=== PATIENT | female | born 1985 | race African-American/Black ===

== ENCOUNTER 2018-01-11 09:10 | Emergency (ER) | payer OTHER, SELFPAY ==
--- NOTE | 2018-01-11 11:49 | EDPHYS ---
Physician Documentation [facility] Name: Evita Tomlin Age: 32 yrs Sex: Female : 1985 Arrival Date: 01/11/2018 Time: 09:11 Bed Treatment Private MD: ED Physician Allan Garcia HPI: 01/11 11:45 This 32 yrs old Black Female presents to ER via Ambulatory with complaints of Drainage pm1 From Ear, Left Ear Pain. 11:45 The patient presents with drainage, pain. The complaints affect the left ear. Onset: pm1 The symptoms/episode began/occurred 1 week(s) ago. Modifying factors: The symptoms are alleviated by nothing, the symptoms are aggravated by nothing. Associated signs and symptoms: Pertinent negatives: fever. Severity of symptoms: in the emergency department the symptoms are worse. The patient has experienced similar episodes in the past, multiple times. The patient has not recently seen a physician. 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 - Social history:: Smoking status: Patient uses tobacco products, smokes one pack cigarettes per day. ROS: 11:45 Constitutional: Negative for fever, chills, and weight loss, Eyes: Negative for injury, pm1 pain, redness, and discharge. 11:45 Neck: Negative for injury, pain, and swelling, Cardiovascular: Negative for chest pain, palpitations, and edema, Respiratory: Negative for shortness of breath, cough, wheezing, and pleuritic chest pain, Abdomen/GI: Negative for abdominal pain, nausea, vomiting, diarrhea, and constipation, Back: Negative for injury and pain, MS/Extremity: Negative for injury and deformity, Skin: Negative for injury, rash, and discoloration, Neuro: Negative for headache, weakness, numbness, tingling, and seizure. 11:45 ENT: Positive for drainage from ear(s), ear pain, Negative for sinus congestion, sinus pain, sore throat. Exam: 11:45 Constitutional: This is a well developed, well nourished patient who is awake, alert, pm1 and in no acute distress. Head/Face: Normocephalic, atraumatic. Eyes: Pupils equal round and reactive to light, extra-ocular motions intact. Lids and lashes normal. Conjunctiva and sclera are non-icteric and not injected. Cornea within normal limits. Periorbital areas with no swelling, redness, or edema. 11:45 Neck: Trachea midline, no thyromegaly or masses palpated, and no cervical lymphadenopathy. Supple, full range of motion without nuchal rigidity, or vertebral point tenderness. No Meningismus. Chest/axilla: Normal chest wall appearance and motion. Nontender with no deformity. No lesions are appreciated. Cardiovascular: Regular rate and rhythm with a normal S1 and S2. No gallops, murmurs, or rubs. Normal PMI, no JVD. No pulse deficits. Respiratory: Lungs have equal breath sounds bilaterally, clear to auscultation and percussion. No rales, rhonchi or wheezes noted. No increased work of breathing, no retractions or nasal flaring. Abdomen/GI: Soft, non-tender, with normal bowel sounds. No distension or tympany. No guarding or rebound. No evidence of tenderness throughout. Back: No spinal tenderness. No costovertebral tenderness. Full range of motion. Skin: Warm, dry with normal turgor. Normal color with no rashes, no lesions, and no evidence of cellulitis. MS/ Extremity: Pulses equal, no cyanosis. Neurovascular intact. Full, normal range of motion. 11:45 ENT: External ear(s): are unremarkable, Ear canal(s): purulent discharge, that is minimal, in the left canal, TM's: bulging, on the left, erythema, on the left, Nose: Mouth: is normal, no acute changes, Posterior pharynx: is normal, no acute changes. Vital Signs: 09:23 BP 166 / 100; Pulse 80; Resp 16; Temp 98.8; Pulse Ox 99% on R/A; Weight 54.43 kg; iw Height 4 ft. 11 in. (149.86 cm); Pain 7/10; 11:35 BP 170 / 106; Pulse 78; Resp 16; Temp 97.4(T); Pulse Ox 99% ; Pain 8/10; tt1 09:23 Body Mass Index 24.24 (54.43 kg, 149.86 cm) MDM: 11:06 Patient medically screened. pm1 11:47 Data reviewed: vital signs. Data interpreted: Pulse oximetry: on room air is 99 %. pm1 Interpretation: normal. Counseling: I had a detailed discussion with the patient and/or guardian regarding: the historical points, exam findings, and any diagnostic results supporting the discharge/admit diagnosis, the need for outpatient follow up, to return to the emergency department if symptoms worsen or persist or if there are any questions or concerns that arise at home. Administered Medications: No medications were administered Disposition: 01/11/18 11:49 Discharged to Home. Impression: Otitis media, unspecified, left ear, Unspecified otitis externa, left ear. - Condition is Stable. - Discharge Instructions: Otitis Media, Adult, Otitis Externa. - Prescriptions for Cortisporin 3.5- 10,000-1 mg/mL-unit/mL-% Otic solution - instill 4 drops by OTIC route 4 times per day for 10 days; 10 milliliter. Amoxicillin 500 mg Oral Capsule - take 1 capsule by ORAL route every 8 hours for 10 days; 30 tablet. Tylenol- Codeine #3 300-30 mg Oral Tablet - take 1 tablet by ORAL route every 6 hours As needed; 15 tablet. - Medication Reconciliation Form, Thank You Letter, Antibiotic Education, Prescription Opioid Use form. - Follow up: Emergency Department; When: As needed; Reason: Worsening of condition. Follow up: Private Physician; When: 2 - 3 days; Reason: Recheck today's complaints, Continuance of care, Re-evaluation by your physician. - Problem is new. - Symptoms have improved. Addendum: 01/13/2018 10:41 Co-signature as Attending Physician, Allan Garcia MD I agree with the assessment and w a plan of care. Signatures: Joanna Palmer RN RN iw Shaggy Simeon, [employer] SALES REPRESENTATIVE pm1 Allan Garcia MD MD il Corrections: (The following items were deleted from the chart) 01/11 11:49 11:49 01/11/2018 11:49 Discharged to Home. Impression: Otitis media, unspecified, left pm1 ear. Condition is Stable. Forms are Medication Reconciliation Form, Thank You Letter, Antibiotic Education, Prescription Opioid Use. Follow up: Emergency Department; When: As needed; Reason: Worsening of condition. Follow up: Private Physician; When: 2 - 3 days; Reason: Recheck today's complaints, Continuance of care, Re-evaluation by your physician. Problem is new. Symptoms have improved. pm1 12:06 11:49 01/11/2018 11:49 Discharged to Home. Impression: Otitis media, unspecified, left iw ear; Unspecified otitis externa, left ear. Condition is Stable. Forms are Medication Reconciliation Form, Thank You Letter, Antibiotic Education, Prescription Opioid Use. Follow up: Emergency Department; When: As needed; Reason: Worsening of condition. Follow up: Private Physician; When: 2 - 3 days; Reason: Recheck today's complaints, Continuance of care, Re-evaluation by your physician. Problem is new. Symptoms have improved. pm1
--- NOTE | 2018-01-11 11:49 | ER ---
Nurse's Notes [facility] Name: Evita Tomlin Age: 32 yrs Sex: Female : 1985 Arrival Date: 01/11/2018 Time: 09:11 Bed Treatment Private MD: Diagnosis: Otitis media, unspecified, left ear;Unspecified otitis externa, left ear Presentation: 01/11 09:19 Presenting complaint: Patient states: "I have hairs growing on my ear for over a year, iw I feel hair growing from neck to left ear and now there is pus and drainage and it's gross", pt licking at left ear, unable to visualize hair in ear. Transition of care: patient was not received from another setting of care. Onset of symptoms was 2016. Initial Sepsis Screen: Does the patient meet any 2 criteria? No. Patient's initial sepsis screen is negative. Does the patient have a suspected source of infection? No. Patient's initial sepsis screen is negative. Care prior to arrival: None. 09:19 Method Of Arrival: Ambulatory iw 09:19 Acuity: KVNG 5 iw Triage Assessment: 11:15 General: Appears in no apparent distress. Behavior is calm. 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 - Social history:: Smoking status: Patient uses tobacco products, smokes one pack cigarettes per day. Screenin:15 Abuse screen: Denies threats or abuse. Denies injuries from another. Nutritional iw screening: No deficits noted. Tuberculosis screening: No symptoms or risk factors identified. Fall Risk None identified. Assessment: 10:14 Reassessment: pt not in lobby. iw 11:15 General: Appears in no apparent distress. Behavior is cooperative, anxious. Pain: iw Complains of pain in left ear. Neuro: Level of Consciousness is awake, alert, obeys commands, Oriented to person, place, time. Cardiovascular: Patient's skin is warm and dry. Respiratory: Respiratory effort is even, unlabored, Respiratory pattern is regular. EENT: Ear canal clear on left ear pt has swelling to left outer ear, appears to have been picking at ear. Derm: Skin is pink, warm \\T\\ dry. normal. Musculoskeletal: Range of motion: intact in all extremities. Vital Signs: 09:23 BP 166 / 100; Pulse 80; Resp 16; Temp 98.8; Pulse Ox 99% on R/A; Weight 54.43 kg; iw Height 4 ft. 11 in. (149.86 cm); Pain 7/10; 11:35 BP 170 / 106; Pulse 78; Resp 16; Temp 97.4(T); Pulse Ox 99% ; Pain 8/10; tt1 09:23 Body Mass Index 24.24 (54.43 kg, 149.86 cm) iw ED Course: 09:11 Patient arrived in ED. as 09:23 Triage completed. iw 09:23 Arm band placed on. iw 11:00 Joanna Palmer RN is Primary Nurse. iw 11:06 Shaggy Simeon NP is PHCP. pm1 11:06 Allan Garcia MD is Attending Physician. pm1 11:15 Patient has correct armband on for positive identification. iw 11:15 No provider procedures requiring assistance completed. Patient did not have IV access iw during this emergency room visit. Administered Medications: No medications were administered Outcome: 11:49 Discharge ordered by . pm1 12:05 Discharged to home ambulatory. iw 12:05 Condition: stable 12:05 Discharge instructions given to patient, Instructed on discharge instructions, follow up and referral plans. medication usage, Demonstrated understanding of instructions, follow-up care, medications, Prescriptions given X 3. 12:06 Patient left the ED. iw Signatures: Echo Nava as Joanna Palmer RN RN iw Zeynep Lal tt1 Shaggy Siemon NP SENIOR SOFTWARE MANAGER pm1
[2018-01-11 12:16] VITALS: O2SAT 99
[2018-01-11 12:17] VITALS: BP 170/106; TEMP 97.4
== END 2018-01-11 12:06 | disposition home or self-care (01) ==
LOC: ER 09:10
DX: H66.92 Otitis media, unspecified, left ear (principal); H60.92 Unspecified otitis externa, left ear
CPT/HCPCS: 99282

== ENCOUNTER 2018-01-28 01:04 | Emergency (ER) | payer SELFPAY ==
--- NOTE | 2018-01-28 01:16 | EDPHYS ---
Physician Documentation [facility] Name: Evita Tomlin Age: 32 yrs Sex: Female : 1985 Arrival Date: 01/28/2018 Time: 01:09 Bed 15 Private MD: ED Physician Didier Owens HPI: 01/28 01:12 This 32 yrs old Black Female presents to ER via EMS with complaints of Ear Pain. cp 01:12 The patient presents with pain. The complaints affect the right ear and left ear. cp Onset: The symptoms/episode began/occurred for awhile. Associated signs and symptoms: Pertinent negatives: cough, shortness of breath, sore throat, vertigo, vomiting. Severity of symptoms: in the emergency department the symptoms are unchanged. 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 - Social history:: Smoking status: Patient uses tobacco products, smokes one pack cigarettes per day. ROS: 01:12 Constitutional: Negative for body aches, chills, fever, poor PO intake. cp 01:12 Eyes: Negative for injury, pain, redness, and discharge. cp 01:12 ENT: Positive for ear pain, Negative for drainage from ear(s), sore throat, difficulty swallowing, difficulty handling secretions. 01:12 Neck: Negative for pain with movement, pain at rest, stiffness, swollen nodes, tenderness. 01:12 Cardiovascular: Negative for chest pain, palpitations. 01:12 Respiratory: Negative for cough, shortness of breath, wheezing. 01:12 Abdomen/GI: Negative for abdominal pain, vomiting, diarrhea, constipation. 01:12 Skin: Negative for cellulitis, rash. 01:12 Neuro: Negative for dizziness, headache, weakness. 01:12 All other systems are negative. Exam: 01:13 Constitutional: The patient appears in no acute distress, alert, awake, non-toxic, well cp developed, well nourished. 01:13 Head/Face: Normocephalic, atraumatic. cp 01:13 Eyes: Periorbital structures: appear normal, Pupils: equal, round, and reactive to light and accomodation, Extraocular movements: intact throughout, Conjunctiva: normal, no exudate, no injection, Lids and lashes: appear normal, bilaterally. 01:13 ENT: External ear(s): are unremarkable, Ear canal(s): are normal, clear, TM's: decreased mobility, bilaterally, erythema, that is moderate, bilaterally, Nose: is normal, Mouth: Lips: moist, Oral mucosa: pink and intact, moist, Posterior pharynx: Airway: no evidence of obstruction, patent, Tonsils: are normal in appearance, Uvula: normal, swelling, is not appreciated, erythema, is not appreciated, exudate, is not appreciated, Voice: is normal. 01:13 Neck: ROM/movement: is normal, is supple, without pain, no range of motions limitations, no meningismus, no nuchal rigidity, Lymph nodes: no appreciated lymphadenopathy. 01:13 Chest/axilla: Inspection: normal, Palpation: is normal, no crepitus, no tenderness. 01:13 Cardiovascular: Rate: normal, Rhythm: regular. 01:13 Respiratory: the patient does not display signs of respiratory distress, Respirations: normal, no use of accessory muscles, no retractions, no splinting, no tachypnea, labored breathing, is not present, Breath sounds: are clear throughout, no decreased breath sounds, no stridor, no wheezing. 01:13 Abdomen/GI: Exam negative for discomfort, distension, guarding, Inspection: abdomen appears normal. 01:13 Skin: cellulitis, is not appreciated, no rash present. Vital Signs: 01:13 BP 150 / 100; Pulse 80; Resp 18; Temp 98.8(O); Pulse Ox 100% on R/A; Weight 56.7 kg; aa1 Height 4 ft. 11 in. (149.86 cm); Pain 10/10; 01:13 Body Mass Index 25.25 (56.70 kg, 149.86 cm) aa1 MDM: 01:15 Patient medically screened. cp 01:15 Differential diagnosis: otitis media, otitis externa, ruptured TM, acute otalgia, cp cerumen impaction. Data reviewed: vital signs, nurses notes, and as a result, I will discharge patient. Administered Medications: 01:20 Drug: Tylenol 1000 mg Route: PO; aa1 01:28 Follow up: Response: Medication administered at discharge. aa1 01:20 Drug: Augmentin 875 mg Route: PO; aa1 01:27 Follow up: Response: Medication administered at discharge. aa1 Disposition: 06:24 Co-signature as Attending Physician, Didier Owens MD. pkl Disposition: 01/28/18 01:15 Discharged to Home. Impression: Otitis media, unspecified, bilateral. - Condition is Stable. - Discharge Instructions: Otitis Media, Adult. - Prescriptions for Amoxicillin 875 mg Oral Tablet - take 1 tablet by ORAL route every 12 hours for 10 days; 20 tablet. - Medication Reconciliation Form, Thank You Letter, Antibiotic Education, Prescription Opioid Use form. - Follow up: Michelle Alejo MD; When: 2 - 3 days; Reason: Recheck today's complaints. - Problem is an ongoing problem. - Symptoms are unchanged. Signatures: Kathleen Velazquez RN RN aa1 Didier Owens MD MD pkl Fabián Cabral PA PA cp Corrections: (The following items were deleted from the chart) 01:29 01:15 01/28/2018 01:15 Discharged to Home. Impression: Otitis media, unspecified, aa1 bilateral. Condition is Stable. Forms are Medication Reconciliation Form, Thank You Letter, Antibiotic Education, Prescription Opioid Use. Follow up: Michelle Alejo; When: 2 - 3 days; Reason: Recheck today's complaints. Problem is an ongoing problem. Symptoms are unchanged. cp
--- NOTE | 2018-01-28 01:16 | ER ---
Nurse's Notes [facility] Name: Evita Tomlin Age: 32 yrs Sex: Female : 1985 Arrival Date: 01/28/2018 Time: 01:09 Bed 15 Private MD: Diagnosis: Otitis media, unspecified, bilateral Presentation: 01/28 01:10 Presenting complaint: Patient states: betty ear pain x 3 months. Reports she was given aa1 amoxicillin for an ear infection but did not finish it so she tried to start it again today but it has not helped. Pt also reports that she is hungry and does not have a place to stay. Transition of care: patient was not received from another setting of care. Onset of symptoms was November 2017. Initial Sepsis Screen: Does the patient meet any 2 criteria? No. Patient's initial sepsis screen is negative. Does the patient have a suspected source of infection? No. Patient's initial sepsis screen is negative. Care prior to arrival: None. 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 - Social history:: Smoking status: Patient uses tobacco products, smokes one pack cigarettes per day. Screenin:15 Abuse screen: Denies threats or abuse. Denies injuries from another. Nutritional aa1 screening: No deficits noted. Tuberculosis screening: No symptoms or risk factors identified. Fall Risk None identified. Assessment: 01:15 General: Appears in no apparent distress. comfortable, Behavior is appropriate for age, aa1 agitated. Pain: Complains of pain in right ear and left ear Pain currently is 10 out of 10 on a pain scale. Pain began 3 months ago. Neuro: Level of Consciousness is awake, alert, obeys commands, Oriented to person, place, time, situation, Moves all extremities. Full function. Respiratory: Airway is patent Respiratory effort is even, unlabored, Respiratory pattern is regular, symmetrical. GI: No signs and/or symptoms were reported involving the gastrointestinal system. : No signs and/or symptoms were reported regarding the genitourinary system. EENT: Reports pain in left ear and right ear. Derm: Skin is intact, is healthy with good turgor, Skin is pink, warm \T\ dry. Musculoskeletal: Circulation, motion, and sensation intact. Capillary refill < 3 seconds, Range of motion: intact in all extremities. 01:28 Reassessment: Patient appears in no apparent distress at this time. Patient is alert, aa1 oriented x 3, equal unlabored respirations, skin warm/dry/pink. Discussed d/c \T\ f/u instructions with pt; denies questions or concerns at this time. Vital Signs: 01:13 BP 150 / 100; Pulse 80; Resp 18; Temp 98.8(O); Pulse Ox 100% on R/A; Weight 56.7 kg; aa1 Height 4 ft. 11 in. (149.86 cm); Pain 10/10; 01:13 Body Mass Index 25.25 (56.70 kg, 149.86 cm) aa1 ED Course: 01:09 Patient arrived in ED. aa1 01:11 Triage completed. aa1 01:12 Fabián Cabral PA is PHCP. cp 01:12 Didier Owens MD is Attending Physician. cp 01:13 Arm band placed on right wrist. Patient placed in an exam room, on a stretcher. aa1 01:15 Michelle Alejo MD is Referral Physician. cp 01:15 Patient has correct armband on for positive identification. Bed in low position. Call aa1 light in reach. Pulse ox on. NIBP on. Warm blanket given. 01:20 Héctor Shaffer, JAILENE is Primary Nurse. mg2 01:28 No provider procedures requiring assistance completed. Patient did not have IV access aa1 during this emergency room visit. Administered Medications: 01:20 Drug: Tylenol 1000 mg Route: PO; aa1 :28 Follow up: Response: Medication administered at discharge. aa1 01:20 Drug: Augmentin 875 mg Route: PO; aa1 01:27 Follow up: Response: Medication administered at discharge. aa1 Outcome: 01:15 Discharge ordered by . cp 01:28 Discharged to home ambulatory. aa1 01:28 Condition: good 01:28 Discharge instructions given to patient, Instructed on discharge instructions, follow up and referral plans. medication usage, Demonstrated understanding of instructions, follow-up care, medications, Prescriptions given X 2. 01:29 Patient left the ED. aa1 Signatures: Kathleen Velazquez RN RN aa1 Fabián Cabral PA PA cp Gardose, Michele, RN RN mg2
[2018-01-28] MEDS ORDERED: AMOX/K CLAV 875 MG TAB ONE (01:21)
[2018-01-28] MEDS ORDERED: ACETAMINOPHEN 500 MG TAB ONE (01:21)
[2018-01-28 01:39] VITALS: BP 150/100; TEMP 98.8; O2SAT 100
== END 2018-01-28 01:29 | disposition home or self-care (01) ==
LOC: ER 01:04
DX: H66.93 Otitis media, unspecified, bilateral (principal); I10 Essential (primary) hypertension; F17.210 Nicotine dependence, cigarettes, uncomplicated
CPT/HCPCS: 99284

== ENCOUNTER 2018-04-08 06:19 | Emergency (ER) | payer SELFPAY ==
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
[2018-04-08] MEDS ORDERED: cloNIDine HCl 0.1 MG TAB ONE (08:50)
[2018-04-08] MEDS ORDERED: AMLODIPINE 5 MG TAB ONE (08:51)
[2018-04-08 09:11] LABS: Urine Blood TRACE (NEG); Urine Glucose NEGATIVE (NEG); Urine Protein 1+ (NEG)
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
[2018-04-08 10:04] VITALS: TEMP 98.2; O2SAT 100
[2018-04-08 10:06] VITALS: BP 162/112
--- NOTE | 2018-04-08 14:02 | EKG ---
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
== END 2018-04-08 09:59 | disposition home or self-care (01) ==
LOC: ER 06:19
DX: I11.9 Hypertensive heart disease without heart failure (principal); M54.2 Cervicalgia; F17.210 Nicotine dependence, cigarettes, uncomplicated
CPT/HCPCS: 70450; 71045; 72125; 81003; 81025; 93005; 99284

== ENCOUNTER 2019-04-20 09:21 | Emergency (ER) | payer SELFPAY ==
--- NOTE | 2019-04-20 09:35 | EDPHYS ---
Physician Documentation [facility] Name: Evita Tomlin Age: 33 yrs Sex: Female : 1985 Arrival Date: 04/20/2019 Time: 09:28 Bed 12 Private MD: ED Physician Fabián Seth HPI: 04/20 09:35 This 33 yrs old Black Female presents to ER via Ambulatory with complaints of Ear Pain. kb 09:35 The patient presents with pain, moderate, "hairs growing out of ear". The complaints kb affect the left ear. Onset: The symptoms/episode began/occurred "over a year ago". Modifying factors: The symptoms are alleviated by nothing, the symptoms are aggravated by nothing. Associated signs and symptoms: The patient has no apparent associated signs or symptoms. Severity of symptoms: At their worst the symptoms were moderate in the emergency department the symptoms are unchanged. The patient has experienced similar episodes in the past. The patient has not recently seen a physician. Pt reports left ear pain with hairs growing out of it for over a year. Pt actively pulling at a hair coming out of ear that is not visible upon examination. Pt states "I'm not crazy, there is a hair there." . 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 - Ebola Screening: : Patient negative for fever greater than or equal to 101.5 degrees Fahrenheit, and additional compatible Ebola Virus Disease symptoms Patient denies exposure to infectious person Patient denies travel to an Ebola-affected area in the 21 days before illness onset No symptoms or risks identified at this time. - Social history:: Smoking status: unknown. ROS: 09:35 Constitutional: Negative for fever, chills, and weight loss, Neck: Negative for injury, kb pain, and swelling, Cardiovascular: Negative for chest pain, palpitations, and edema, Respiratory: Negative for shortness of breath, cough, wheezing, and pleuritic chest pain, Abdomen/GI: Negative for abdominal pain, nausea, vomiting, diarrhea, and constipation, Back: Negative for injury and pain, : Negative for injury, bleeding, discharge, and swelling, MS/Extremity: Negative for injury and deformity, Skin: Negative for injury, rash, and discoloration, Neuro: Negative for headache, weakness, numbness, tingling, and seizure. 09:35 ENT: Positive for ear pain. Exam: 09:35 Constitutional: This is a well developed, well nourished patient who is awake, alert, kb and in no acute distress. Head/Face: Normocephalic, atraumatic. Neck: Trachea midline, no thyromegaly or masses palpated, and no cervical lymphadenopathy. Supple, full range of motion without nuchal rigidity, or vertebral point tenderness. No Meningismus. Chest/axilla: Normal chest wall appearance and motion. Nontender with no deformity. No lesions are appreciated. Cardiovascular: Regular rate and rhythm with a normal S1 and S2. No gallops, murmurs, or rubs. Normal PMI, no JVD. No pulse deficits. Respiratory: Lungs have equal breath sounds bilaterally, clear to auscultation and percussion. No rales, rhonchi or wheezes noted. No increased work of breathing, no retractions or nasal flaring. Abdomen/GI: Soft, non-tender, with normal bowel sounds. No distension or tympany. No guarding or rebound. No evidence of tenderness throughout. Skin: Warm, dry with normal turgor. Normal color with no rashes, no lesions, and no evidence of cellulitis. MS/ Extremity: Pulses equal, no cyanosis. Neurovascular intact. Full, normal range of motion. Neuro: Awake and alert, GCS 15, oriented to person, place, time, and situation. Cranial nerves II-XII grossly intact. Motor strength 5/5 in all extremities. Sensory grossly intact. Cerebellar exam normal. Normal gait. 09:35 ENT: External ear(s): pain with movement, that is moderate, of the pinna of left ear and left ear lobe, Ear canal(s): swelling, that is moderate, of the left canal, TM's: are normal, Nose: is normal, Mouth: is normal, Posterior pharynx: is normal. Vital Signs: 09:36 BP 166 / 89; Pulse 74; Resp 16; Temp 98.7; Pulse Ox 99% ; Pain 9/10; iw MDM: 09:31 Patient medically screened. [facility] 09:38 Data reviewed: vital signs, nurses notes. Data interpreted: Pulse oximetry: on room air kb is 100 %. Interpretation: normal. Counseling: I had a detailed discussion with the patient and/or guardian regarding: the historical points, exam findings, and any diagnostic results supporting the discharge/admit diagnosis, the need for outpatient follow up, an ENT specialist, to return to the emergency department if symptoms worsen or persist or if there are any questions or concerns that arise at home. 09:40 ED course: Pt requesting antibiotic pills rather than drops. Educated that pills will kb not treat an outer ear infection and she needs the drops. States "I can't afford the drops." Prescription changed from ciprodex to cortisporin drops and Good RX card given. Administered Medications: No medications were administered Disposition: 04/20/19 09:35 Discharged to Home. Impression: Unspecified otitis externa, left ear. - Condition is Stable. - Discharge Instructions: Otitis Externa, [id number], Ear Drops, Adult, [id number]. - Prescriptions for Cortisporin 3.5- 10,000-1 mg/mL-unit/mL-% Otic solution - instill 4 drop by OTIC route 3 times per day for 10 days; 1 bottle. - Medication Reconciliation Form, Thank You Letter, Antibiotic Education, Prescription Opioid Use form. - Follow up: Emergency Department; When: As needed; Reason: Worsening of condition. Follow up: Private Physician; When: 2 - 3 days; Reason: Recheck today's complaints, Continuance of care, Re-evaluation by your physician. Addendum: 04/21/2019 10:01 Co-signature as Attending Physician, Fabián Seth MD I agree with the assessment and c patel plan of care. Signatures: Torri Alexis, SENIOR UNDERWRITER-C SENIOR UNDERWRITER-Guilhermeb Fabián Seth MD MD cha Williams, Irene, RN RN iw Corrections: (The following items were deleted from the chart) 04/20 09:38 09:35 ENT: External ear(s): are unremarkable, Ear canal(s): swelling, that is moderate, kb of the left canal, TM's: are normal, Nose: is normal, Mouth: is normal, Posterior pharynx: is normal, kb 09:41 09:40 ED course: Pt requesting antibiotic pills rather than drops. Educated that pills dg will not treat an outer ear infection and she needs the drops. . kb 09:41 09:35 Pt reports left ear pain with hairs growing out of it for over a year. Pt kb actively pulling at a hair coming out of ear that is not visible upon examination. . kb 09:52 09:35 04/20/2019 09:35 Discharged to Home. Impression: Unspecified otitis externa, left iw ear. Condition is Stable. Forms are Medication Reconciliation Form, Thank You Letter, Antibiotic Education, Prescription Opioid Use. Follow up: Emergency Department; When: As needed; Reason: Worsening of condition. Follow up: Private Physician; When: 2 - 3 days; Reason: Recheck today's complaints, Continuance of care, Re-evaluation by your physician. kb
--- NOTE | 2019-04-20 09:35 | ER ---
Nurse's Notes [facility] Name: Evita Tomlin Age: 33 yrs Sex: Female : 1985 Arrival Date: 04/20/2019 Time: 09:28 Bed 12 Private MD: Diagnosis: Unspecified otitis externa, left ear Presentation: 04/20 09:32 Presenting complaint: Patient states: left ear pain for over a year, pt states "I have iw a hair in my ear, I can feel it, I want you to see it, you think I'm crazy, but I'm telling you it's there". Transition of care: patient was not received from another setting of care. Onset of symptoms was April 20, 2018. Risk Assessment: Do you want to hurt yourself or someone else? Patient reports no desire to harm self or others. Initial Sepsis Screen: Does the patient meet any 2 criteria? No. Patient's initial sepsis screen is negative. Does the patient have a suspected source of infection? No. Patient's initial sepsis screen is negative. Care prior to arrival: None. 09:32 Method Of Arrival: Ambulatory iw 09:35 Acuity: KVNG 5 iw Triage Assessment: 09:51 General: Behavior is cooperative. 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 - Ebola Screening: : Patient negative for fever greater than or equal to 101.5 degrees Fahrenheit, and additional compatible Ebola Virus Disease symptoms Patient denies exposure to infectious person Patient denies travel to an Ebola-affected area in the 21 days before illness onset No symptoms or risks identified at this time. - Social history:: Smoking status: unknown. Screenin:51 Abuse screen: Denies threats or abuse. Denies injuries from another. Nutritional iw screening: No deficits noted. Tuberculosis screening: No symptoms or risk factors identified. Fall Risk None identified. Assessment: 09:40 General: Appears in no apparent distress. Pain: Complains of pain in left ear. Neuro: iw Level of Consciousness is awake, alert, obeys commands, Oriented to person, place, time, situation. Cardiovascular: Patient's skin is warm and dry. Respiratory: Respiratory effort is even, unlabored, Respiratory pattern is regular. EENT: Pinna. Derm: Skin is intact, is healthy with good turgor. Musculoskeletal: Range of motion: intact in all extremities. Vital Signs: 09:36 BP 166 / 89; Pulse 74; Resp 16; Temp 98.7; Pulse Ox 99% ; Pain 9/10; iw ED Course: 09:28 Patient arrived in ED. iw 09:31 Fabián eSth MD is Attending Physician. mily 09:34 [facility]ri Alex[facility] F[facility]-C [facility]. kb 09:35 Joanna Palmer, RN is Primary Nurse. iw 09:35 Triage completed. iw 09:35 Arm band placed on. iw 09:51 Patient has correct armband on for positive identification. iw 09:51 No provider procedures requiring assistance completed. Patient did not have IV access iw during this emergency room visit. Administered Medications: No medications were administered Outcome: 09:35 Discharge ordered by . kb 09:51 Discharged to home ambulatory. iw 09:51 Condition: good 09:51 Discharge instructions given to patient, Instructed on discharge instructions, follow up and referral plans. medication usage, Demonstrated understanding of instructions, follow-up care, medications, Prescriptions given X 1. 09:52 Patient left the ED. iw Signatures: Torri Alexis FNP-C FNP-Ckb Fabián Seth MD MD cha Williams, Irene, RN RN iw
[2019-04-20] MEDS ORDERED: IBUPROFEN 400 MG TAB ONE (09:43)
[2019-04-20 10:06] VITALS: BP 166/89; TEMP 98.7; O2SAT 99
== END 2019-04-20 09:52 | disposition home or self-care (01) ==
LOC: ER 09:21
DX: H60.92 Unspecified otitis externa, left ear (principal)
CPT/HCPCS: 99282

== ENCOUNTER 2019-07-07 19:26 | Emergency (ER) | payer SELFPAY ==
--- NOTE | 2019-07-07 20:02 | ER ---
Nurse's Notes [facility] Name: Evita Tomlin Age: 34 yrs Sex: Female : 1985 Arrival Date: 07/07/2019 Time: 19:28 Bed 19 Private MD: Diagnosis: Otitis externa in other diseases classified elsewhere, left ear Presentation: 07/07 19:33 Presenting complaint: Patient states: left ear pain X1 year intermittent. Transition of ak1 care: patient was not received from another setting of care. Onset of symptoms is unknown. Risk Assessment: Do you want to hurt yourself or someone else? Patient reports no desire to harm self or others. Initial Sepsis Screen: Does the patient meet any 2 criteria? No. Patient's initial sepsis screen is negative. Does the patient have a suspected source of infection? No. Patient's initial sepsis screen is negative. Care prior to arrival: None. 19:33 Method Of Arrival: Ambulatory ak1 19:33 Acuity: KVNG 5 ak1 DRAW IN HAND: 19:33 LMP 07/07/2019 ak1 Historical: - Allergies: 19:34 No Known Allergies; ak1 - Home Meds: 19:34 None [Active]; ak1 - PMHx: 19:34 Hypertension; nerve pain; ak1 - PSHx: 19:34 ectopic ; ak1 - Immunization history:: Adult Immunizations unknown. - Social history:: Smoking status: Patient uses tobacco products, smokes one pack cigarettes per day. - Ebola Screening: : Patient negative for fever greater than or equal to 101.5 degrees Fahrenheit, and additional compatible Ebola Virus Disease symptoms Patient denies exposure to infectious person. Screenin:00 Abuse screen: Denies threats or abuse. Denies injuries from another. Nutritional wh screening: No deficits noted. Tuberculosis screening: No symptoms or risk factors identified. Fall Risk None identified. Assessment: 19:40 General: Appears in no apparent distress. Behavior is calm, cooperative, appropriate wh for age. Pain: Complains of pain in left ear Pain does not radiate. Pain currently is 5 out of 10 on a pain scale. Quality of pain is described as aching. Neuro: Level of Consciousness is awake, alert, obeys commands, Oriented to person, place, time, situation, Appropriate for age. Cardiovascular: Capillary refill < 3 seconds. Respiratory: Airway is patent Respiratory effort is even, unlabored, Respiratory pattern is regular, symmetrical. GI: Abdomen is flat, non-distended. : No signs and/or symptoms were reported regarding the genitourinary system. EENT: Reports pain in left ear. Derm: Skin is intact, is healthy with good turgor, Skin is pink, warm \T\ dry. normal. Musculoskeletal: Circulation, motion, and sensation intact. Vital Signs: 19:33 BP 152 / 109; Pulse 105; Resp 18; Temp 98.2; Pulse Ox 100% on R/A; Weight 58.06 kg (R); ak1 Height 4 ft. 11 in. (149.86 cm); Pain 8/10; 19:33 Body Mass Index 25.85 (58.06 kg, 149.86 cm) ak1 ED Course: 19:28 Patient arrived in ED. ds1 19:34 Triage completed. ak1 19:34 Arm band placed on Patient placed in an exam room, on a stretcher, Patient notified of ak1 wait time. 19:35 Fabián Cabral PA is PHCP. cp 19:35 Fabián Seth MD is Attending Physician. cp 20:00 Patient has correct armband on for positive identification. Bed in low position. Call light in reach. Side rails up X 1. Pulse ox on. NIBP on. 20:01 Michelle Alejo MD is Referral Physician. cp 20:03 Joshua Valencia is Primary Nurse. wh 20:24 No provider procedures requiring assistance completed. Patient did not have IV access during this emergency room visit. Administered Medications: 20:18 Drug: Tylenol 650 mg Route: PO; 20:25 Follow up: Response: No adverse reaction wh 20:20 Drug: Ibuprofen 600 mg Route: PO; 20:25 Follow up: Response: No adverse reaction Outcome: 20:02 Discharge ordered by . cp 20:24 Discharged to home ambulatory, with family. 20:24 Condition: stable 20:24 Discharge instructions given to patient, Instructed on discharge instructions, follow up and referral plans. medication usage, POC Otitis Externa Demonstrated understanding of instructions, follow-up care, medications, POC Prescriptions given X 2. 20:25 Patient left the ED. Signatures: Luma Hurtado ds1 Pallavi Casey, RN RN ak1 Fabián Cabral PA PA cp Habalo, Winsy Corrections: (The following items were deleted from the chart) 19:40 Pain: Complains of pain in right ear Pain does not radiate. Pain currently is 5 wh out of 10 on a pain scale. Quality of pain is described as aching, 19:40 EENT: Reports pain in right ear [facility]
--- NOTE | 2019-07-07 20:02 | EDPHYS ---
Physician Documentation [facility] Name: Evita Tomlin Age: 34 yrs Sex: Female : 1985 Arrival Date: 07/07/2019 Time: 19:28 Bed 19 Private MD: ED Physician Fabián Seth HPI: 07/07 20:00 This 34 yrs old Black Female presents to ER via Ambulatory with complaints of Ear Pain. cp 20:00 The patient presents with pain, tenderness. The complaints affect the left ear. Onset: cp The symptoms/episode began/occurred for awhile. Associated signs and symptoms: Pertinent negatives: cough, fever, rhinorrhea, sinus trouble, sore throat, drainage. Severity of symptoms: in the emergency department the symptoms are unchanged despite home interventions. 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 - Social history:: Smoking status: Patient uses tobacco products, smokes one pack cigarettes per day. - Ebola Screening: : Patient negative for fever greater than or equal to 101.5 degrees Fahrenheit, and additional compatible Ebola Virus Disease symptoms Patient denies exposure to infectious person. ROS: 20:00 Constitutional: Negative for body aches, chills, fever, poor PO intake. cp 20:00 Eyes: Negative for injury, pain, redness, and discharge. cp 20:00 ENT: Positive for ear pain, Negative for drainage from ear(s), sinus congestion, sinus pain, difficulty swallowing, difficulty handling secretions. 20:00 Respiratory: Negative for cough, shortness of breath, wheezing. 20:00 Abdomen/GI: Negative for abdominal pain, nausea, vomiting, and diarrhea. 20:00 Skin: Negative for rash. 20:00 Neuro: Negative for headache. 20:00 All other systems are negative. Exam: 20:01 Constitutional: The patient appears in no acute distress, alert, awake, comfortable, cp non-toxic, well developed, well nourished. 20:01 Head/Face: Normocephalic, atraumatic. cp 20:01 Eyes: Periorbital structures: appear normal, Conjunctiva: normal, no exudate, no injection, Lids and lashes: appear normal, bilaterally. 20:01 ENT: External ear(s): pain with movement, that is mild, of the pinna of left ear and left ear canal, Ear canal(s): erythema, is not appreciated, swelling, that is minimal, of the left canal, TM's: dullness, bilaterally, Nose: is normal, Mouth: Lips: moist, Oral mucosa: pink and intact, moist, Posterior pharynx: is normal, airway is patent, no erythema, no exudate. 20:01 Neck: ROM/movement: is normal, is supple, without pain, no range of motions limitations, no nuchal rigidity, Lymph nodes: no appreciated lymphadenopathy. 20:01 Chest/axilla: Inspection: normal. 20:01 Cardiovascular: Rate: tachycardic. 20:01 Respiratory: the patient does not display signs of respiratory distress, Respirations: normal, no use of accessory muscles, no retractions, no splinting, no tachypnea. 20:01 Abdomen/GI: Exam negative for discomfort, distension, guarding, Inspection: abdomen appears normal. 20:01 Skin: no rash present. Vital Signs: 19:33 BP 152 / 109; Pulse 105; Resp 18; Temp 98.2; Pulse Ox 100% on R/A; Weight 58.06 kg (R); ak1 Height 4 ft. 11 in. (149.86 cm); Pain 8/10; 19:33 Body Mass Index 25.85 (58.06 kg, 149.86 cm) ak1 MDM: 19:37 Patient medically screened. cp 20:00 Differential diagnosis: otitis media, otitis externa, ruptured TM, acute otalgia, cp cerumen impaction, barotrauma . 20:01 Data reviewed: vital signs, nurses notes, and as a result, I will discharge patient. cp 20:01 Counseling: I had a detailed discussion with the patient and/or guardian regarding: the cp historical points, exam findings, and any diagnostic results supporting the discharge/admit diagnosis, to return to the emergency department if symptoms worsen or persist or if there are any questions or concerns that arise at home. 20:01 Response to treatment: the patient's symptoms have mildly improved after treatment, and cp as a result, I will discharge patient. Administered Medications: 20:18 Drug: Tylenol 650 mg Route: PO; 20:25 Follow up: Response: No adverse reaction 20:20 Drug: Ibuprofen 600 mg Route: PO; 20:25 Follow up: Response: No adverse reaction Disposition: 07/08 07:24 Co-signature as Attending Physician, Fabián Seth MD I agree with the assessment and mily plan of care. Disposition: 07/07/19 20:02 Discharged to Home. Impression: Otitis externa in other diseases classified elsewhere, left ear. - Condition is Stable. - Discharge Instructions: Otitis Externa. - Prescriptions for Cortisporin- TC 3.3-3-10-0.5 mg/mL Otic Suspension - instill 4 drop by OTIC route every 6 hours; 1 bottle. Ibuprofen 600 mg Oral Tablet - take 1 tablet by ORAL route every 6 hours As needed take with food; 30 tablet. - Medication Reconciliation Form, Thank You Letter, Antibiotic Education, Prescription Opioid Use form. - Follow up: Michelle Alejo MD; When: 1 week; Reason: symptoms continue. - Problem is new. - Symptoms have improved. Signatures: Fabián Seth MD MD cha Krenek, Amber, RN RN ak1 Fabián Cabral PA PA Joshua Valencia Corrections: (The following items were deleted from the chart) 07/07 20:25 20:02 07/07/2019 20:02 Discharged to Home. Impression: Otitis externa in other diseases wh classified elsewhere, left ear. Condition is Stable. Forms are Medication Reconciliation Form, Thank You Letter, Antibiotic Education, Prescription Opioid Use. Follow up: Michelle Alejo; When: 1 week; Reason: symptoms continue. Problem is new. Symptoms have improved. cp
[2019-07-07] MEDS ORDERED: IBUPROFEN 400 MG TAB ONE (20:15)
[2019-07-07] MEDS ORDERED: ACETAMINOPHEN 325 MG TABLET ONE (20:15)
[2019-07-07] MEDS ORDERED: IBUPROFEN 200 MG TAB PO ONE (20:15)
[2019-07-07 21:03] VITALS: BP 152/109; TEMP 98.2; O2SAT 100
== END 2019-07-07 20:25 | disposition home or self-care (01) ==
LOC: ER 19:26
DX: H60.8X2 Other otitis externa, left ear (principal); F17.210 Nicotine dependence, cigarettes, uncomplicated
CPT/HCPCS: 99283

== ENCOUNTER 2020-01-03 00:28 | Emergency (ER) | payer SELFPAY ==
[2020-01-03] MEDS ORDERED: cloNIDine HCL 0.1 MG TAB ONE (00:47)
--- NOTE | 2020-01-03 01:15 | ER ---
Nurse's Notes [facility] Name: Evita Tomlin Age: 34 yrs Sex: Female : 1985 Arrival Date: 01/03/2020 Time: 00:30 Bed 8 Private MD: Diagnosis: Allergic rhinitis, unspecified;Essential (primary) hypertension Presentation: 01/02 00:34 Chief complaint: Patient states: I dont feel good. I have a cough and have been sg sneezing with a runny nose, and my uncle wont let me stay with him until i get tested for COVID and am negative. pt denies N/V/D/Fever at this time. Coronavirus screen: Patient reports a cough. Patient denies shortness of breath or difficulty breathing. Patient denies measured and/or subjective temperature greater than 100.4F prior to today's visit. Patient denies travel on a cruise ship or to a country the [facility] currently lists as an affected area. Patient denies contact with known and/or suspected case of COVID-19. Ebola Screen: Patient negative for fever greater than or equal to 101.5 degrees Fahrenheit, and additional compatible Ebola Virus Disease symptoms Patient denies exposure to infectious person. Patient denies travel to an Ebola-affected area in the 21 days before illness onset. No symptoms or risks identified at this time. Onset: The symptoms/episode began/occurred gradually, yesterday. Initial Sepsis Screen: Does the patient meet any 2 criteria? No. Patient's initial sepsis screen is negative. Does the patient have a suspected source of infection? No. Patient's initial sepsis screen is negative. Risk Assessment: Do you want to hurt yourself or someone else? Patient reports no desire to harm self or others. Onset of symptoms was January 03, 2020. Care prior to arrival: None. 00:34 Method Of Arrival: Ambulatory sg 00:34 Acuity: KVNG 4 sg Historical: - Allergies: 00:39 No Known Allergies; sg - PMHx: 00:39 Hypertension; nerve pain; sg - PSHx: 00:39 ectopic ; sg - Immunization history:: Adult Immunizations up to date. - Social history:: Smoking status: Patient denies any tobacco usage or history of. Screenin:45 Abuse screen: Denies threats or abuse. Denies injuries from another. Nutritional rv screening: No deficits noted. Tuberculosis screening: No symptoms or risk factors identified. 00:45 Fall Risk None identified. rv Assessment: 00:45 General: Appears uncomfortable, Behavior is calm, cooperative. rv 00:45 Pain: Denies pain. Neuro: Level of Consciousness is awake, alert, obeys commands, rv Oriented to person, place, time, situation. Cardiovascular: Patient's skin is warm and dry. Respiratory: Airway is patent Respiratory effort is even, unlabored, Breath sounds are clear bilaterally. Derm: Skin is intact. Vital Signs: 00:39 BP 157 / 116; Pulse 89; Resp 18; Temp 97.0(TE); Pulse Ox 100% on R/A; oe 01:10 BP 151 / 104; Pulse 86; Pulse Ox 100% on R/A; vc ED Course: 00:30 Patient arrived in ED. ag3 00:32 Torri Alexis FNP-C [facility]. kb 00:32 Kye Morales MD is Attending Physician. kb 00:33 Cruz Mehta, JAILENE is Primary Nurse. rv 00:39 Triage completed. sg 00:39 Arm band placed on. sg 00:45 Bed in low position. Call light in reach. Pulse ox on. NIBP on. rv 01:19 No provider procedures requiring assistance completed. Patient did not have IV access rv during this emergency room visit. Administered Medications: 00:43 Drug: cloNIDine 0.1 mg Route: PO; rv 01:18 Follow up: Response: No adverse reaction; Blood pressure is lowered rv Outcome: 01:15 Discharge ordered by . kb 01:19 Discharged to home ambulatory. rv 01:19 Condition: good 01:19 Discharge instructions given to patient, Instructed on discharge instructions, follow up and referral plans. Demonstrated understanding of instructions, follow-up care. 01:20 Patient left the ED. rv Signatures: Torri Alexis FNP-C FNP-Yariel Das RN RN sg Jagdeep Heredia oe Cruz Mehta, JAILENE RN rv Skylar Gant ag3 Doris Mata RN RN vc Corrections: (The following items were deleted from the chart) 00:46 00:34 Chief complaint: Patient states: I dont feel good. I have a cough and have been sg sneezing with a runny nose, pt denies N/V/D/Fever at this time sg
--- NOTE | 2020-01-03 01:15 | EDPHYS ---
Physician Documentation [facility] Name: Evita Tomlin Age: 34 yrs Sex: Female : 1985 Arrival Date: 01/03/2020 Time: 00:30 Bed 8 Private MD: ED Physician Kye Morales HPI: 01/02 00:47 This 34 yrs old Black Female presents to ER via Ambulatory with complaints of Cough, kb Sneezing. 00:47 The patient or guardian reports cough, that is intermittent, described as mild, with no kb sputum. Onset: The symptoms/episode began/occurred 2 day(s) ago. Severity of symptoms: At their worst the symptoms were very mild, mild, in the emergency department the symptoms are unchanged. Modifying factors: The symptoms are alleviated by nothing, the symptoms are aggravated by nothing. Associated signs and symptoms: Pertinent positives: rhinorrhea, sore throat, Pertinent negatives: chest pain, diarrhea, ear ache, fever, nausea, vomiting. The patient has not experienced similar symptoms in the past. The patient has not recently seen a physician. Pt reports sneezing, coughing and scratchy throat for 2 days. States her uncle won't let her stay with him because he's worried about COVID so she came to make sure that wasn't what it was. Denies fever/chills. Historical: - Allergies: 00:39 No Known Allergies; sg - PMHx: 00:39 Hypertension; nerve pain; sg - PSHx: 00:39 ectopic ; sg - Immunization history:: Adult Immunizations up to date. - Social history:: Smoking status: Patient denies any tobacco usage or history of. ROS: 00:46 Constitutional: Negative for fever, chills, and weight loss, Neck: Negative for injury, kb pain, and swelling, Cardiovascular: Negative for chest pain, palpitations, and edema, Abdomen/GI: Negative for abdominal pain, nausea, vomiting, diarrhea, and constipation, Back: Negative for injury and pain, MS/Extremity: Negative for injury and deformity, Skin: Negative for injury, rash, and discoloration, Neuro: Negative for headache, weakness, numbness, tingling, and seizure. 00:46 ENT: Positive for sneezing, scratchy throat. 00:46 Respiratory: Positive for cough, Negative for dyspnea on exertion, hemoptysis, orthopnea, pleurisy, shortness of breath, sputum production, wheezing. Exam: 00:46 Constitutional: This is a well developed, well nourished patient who is awake, alert, kb and in no acute distress. Head/Face: Normocephalic, atraumatic. Eyes: Pupils equal round and reactive to light, extra-ocular motions intact. Lids and lashes normal. Conjunctiva and sclera are non-icteric and not injected. Cornea within normal limits. Periorbital areas with no swelling, redness, or edema. ENT: Nares patent. No nasal discharge, no septal abnormalities noted. Tympanic membranes are normal and external auditory canals are clear. Oropharynx with no redness, swelling, or masses, exudates, or evidence of obstruction, uvula midline. Mucous membranes moist. Neck: Trachea midline, no thyromegaly or masses palpated, and no cervical lymphadenopathy. Supple, full range of motion without nuchal rigidity, or vertebral point tenderness. No Meningismus. Chest/axilla: Normal chest wall appearance and motion. Nontender with no deformity. No lesions are appreciated. Cardiovascular: Regular rate and rhythm with a normal S1 and S2. No gallops, murmurs, or rubs. Normal PMI, no JVD. No pulse deficits. Respiratory: Lungs have equal breath sounds bilaterally, clear to auscultation and percussion. No rales, rhonchi or wheezes noted. No increased work of breathing, no retractions or nasal flaring. Abdomen/GI: Soft, non-tender, with normal bowel sounds. No distension or tympany. No guarding or rebound. No evidence of tenderness throughout. Skin: Warm, dry with normal turgor. Normal color with no rashes, no lesions, and no evidence of cellulitis. MS/ Extremity: Pulses equal, no cyanosis. Neurovascular intact. Full, normal range of motion. Neuro: Awake and alert, GCS 15, oriented to person, place, time, and situation. Cranial nerves II-XII grossly intact. Motor strength 5/5 in all extremities. Sensory grossly intact. Cerebellar exam normal. Normal gait. Vital Signs: 00:39 BP 157 / 116; Pulse 89; Resp 18; Temp 97.0(TE); Pulse Ox 100% on R/A; oe 01:10 BP 151 / 104; Pulse 86; Pulse Ox 100% on R/A; vc MDM: 00:32 Patient medically screened. kb 00:45 Data reviewed: vital signs, nurses notes. Data interpreted: Pulse oximetry: on room air kb is 100 %. Interpretation: normal. Counseling: I had a detailed discussion with the patient and/or guardian regarding: the historical points, exam findings, and any diagnostic results supporting the discharge/admit diagnosis, the need for outpatient follow up, a family practitioner, to return to the emergency department if symptoms worsen or persist or if there are any questions or concerns that arise at home. ED course: Pt is asymptomatic of BP. States she is supposed to take Diovan for it, but doesn't have any. Educated to follow up with PCP for BP management.. Administered Medications: 00:43 Drug: cloNIDine 0.1 mg Route: PO; rv 01:18 Follow up: Response: No adverse reaction; Blood pressure is lowered rv Disposition: 06:34 Co-signature as Attending Physician, Kye Morales MD I agree with the assessment and kdr plan of care. Disposition: 01/03/20 01:15 Discharged to Home. Impression: Allergic rhinitis, unspecified, Essential (primary) hypertension. - Condition is Stable. - Discharge Instructions: Hypertension, [id number], Allergies, [id number]. - Medication Reconciliation Form, Thank You Letter, Antibiotic Education, Prescription Opioid Use form. - Follow up: Emergency Department; When: As needed; Reason: Worsening of condition. Follow up: Private Physician; When: 2 - 3 days; Reason: Recheck today's complaints, Continuance of care, Re-evaluation by your physician. - Notes: [facility] hotline Signatures: Torri Alexis, [employer] SERVICES LIBRARIAN-Ckb Yariel Younger RN RN sg Kye Morales MD MD [facility] Cruz Mehta RN RN rv Corrections: (The following items were deleted from the chart) 01:15 01/03/2020 01:15 Discharged to Home. Impression: Allergic rhinitis, unspecified; rv Essential (primary) hypertension. Condition is Stable. Discharge Instructions: Hypertension, [id number], Allergies, [id number]. Forms are Medication Reconciliation Form, Thank You Letter, Antibiotic Education, Prescription Opioid Use. Follow up: Emergency Department; When: As needed; Reason: Worsening of condition. Follow up: Private Physician; When: 2 - 3 days; Reason: Recheck today's complaints, Continuance of care, Re-evaluation by your physician. kb
[2020-01-03 01:25] VITALS: TEMP 97; O2SAT 100
[2020-01-03 01:27] VITALS: BP 151/104
== END 2020-01-03 01:20 | disposition home or self-care (01) ==
LOC: ER 00:28
DX: J30.9 Allergic rhinitis, unspecified (principal); I10 Essential (primary) hypertension
CPT/HCPCS: 99283

== ENCOUNTER 2020-04-13 08:11 | Emergency (ER) | payer SELFPAY, OTHER ==
[2020-04-13] MEDS ORDERED: NA CHLORIDE 0.9% 1,000 ML ONE (08:47)
[2020-04-13] MEDS ORDERED: dexAMETHasone 10 MG/ML VIAL ONE (08:47)
--- NOTE | 2020-04-13 09:27 | RAD REPORT ---
EXAM DESCRIPTION: RAD - Chest Single View - 04/13/2020 9:02 am CLINICAL HISTORY: Malaise;Pain Chest pain. COMPARISON: Chest Single View dated 04/08/2018 FINDINGS: Portable technique limits examination quality. The lungs are grossly clear. The heart is normal in size. No displaced fractures. IMPRESSION: No acute intrathoracic process suspected.
[2020-04-13 09:40] LABS: Protime INR 1.01
[2020-04-13 09:52] LABS: Absolute Lymphocytes (CBC) 0.7 K/uL (0.7-4.9); Basophils % 0.4 % (0-1.3); Hematocrit 30.5 % (36.0-45.0); Lymphocytes % 9.7 % (15.3-44.8); RBC Red Blood Cell Count 3.78 M/uL (3.86-4.86)
[2020-04-13 10:04] LABS: ALT/SGPT 69 U/L (12-78); AST/SGOT 41 U/L (15-37); Albumin 2.7 g/dL (3.4-5.0); Alkaline Phosphatase 86 U/L (45-117); BUN Blood Urea Nitrogen 6 mg/dL (7-18); Bicarbonate 26 mmol/L (21-32); Bilirubin Direct 0.1 mg/dL (0-0.2); Bilirubin Total 0.2 mg/dL (0.2-1.0); Ferritin 10.7 ng/mL (8-388); Glucose Level 122 mg/dL (74-106); NT PRO-BNP 113 pg/mL (<125); Potassium 3.4 mmol/L (3.5-5.1); Protein, Total 7.1 g/dL (6.4-8.2); Sodium Level 139 mmol/L (136-145); Thyroid Stimulating Hormone 0.371 uIU/mL (0.360-3.740); Transferrin 230 mg/dL (200-360); Troponin (Emerg Dept Use Only) < 0.02 ng/mL (0.0-0.045)
[2020-04-13 10:23] LABS: Urine Blood NEGATIVE (NEG); Urine Glucose NEGATIVE (NEG); Urine Protein NEGATIVE (NEG); Urine Specific Gravity 1.025 (1.005-1.030)
[2020-04-13 10:24] LABS: Urine Specific Gravity 1.025 (1.005-1.030)
--- NOTE | 2020-04-13 10:59 | RAD REPORT ---
EXAM DESCRIPTION: CT - Chest For Pe Angio - 04/13/2020 10:42 am CLINICAL HISTORY: Chest pain. CHEST PAIN COMPARISON: Chest Single View dated 04/13/2020 TECHNIQUE: CT angiogram of the pulmonary arteries was performed with MIP. All CT scans are performed using dose optimization technique as appropriate and may include automated exposure control or mA/KV adjustment according to patient size. FINDINGS: No evidence of pulmonary thromboembolism. No acute aortic finding demonstrated. The lungs are clear. No significant pericardial or pleural fluid. No concerning bony finding. IMPRESSION: No evidence of pulmonary thromboembolism. No acute lung findings.
--- NOTE | 2020-04-13 11:05 | EDPHYS ---
Physician Documentation [facility] Name: Evita Tomiln Age: 34 yrs Sex: Female : 1985 Arrival Date: 04/13/2020 Time: 08:14 Bed 18 Private MD: ED Physician Fabián Seth HPI: 04/13 08:56 This 34 yrs old Black Female presents to ER via EMS with complaints of pain all over, snw swelling to wrists and ankles, fatigue. 08:56 Pt states she has been swelling in all joints with increased discomfort and fatigue x 3 snw days. Onset: The symptoms/episode began/occurred gradually. Severity of symptoms: At their worst the symptoms were moderate in the emergency department the symptoms are unchanged. It is unknown whether or not the patient has had similar symptoms in the past. The patient has not recently seen a physician, and does not have an established primary care provider. 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 - Social history:: Smoking status: Patient reports the use of cigarette tobacco products, smokes one pack cigarettes per day. ROS: 08:56 Eyes: Negative for injury, pain, redness, and discharge, ENT: Negative for injury, snw pain, and discharge, Neck: Negative for injury, pain, and swelling. 08:56 Cardiovascular: Negative for chest pain, palpitations, and edema, Abdomen/GI: Negative for abdominal pain, nausea, vomiting, diarrhea, and constipation, Back: Negative for injury and pain, : Negative for injury, bleeding, discharge, and swelling, MS/Extremity: Negative for injury and deformity, + tenderness and thickening of wrists and ankles, no dependent edema Skin: Negative for injury, rash, and discoloration, + pallor Neuro: Negative for headache, weakness, numbness, tingling, and seizure, Psych: Negative for depression, anxiety, suicide ideation, homicidal ideation, and hallucinations. 08:56 Constitutional: Positive for body aches, fatigue, malaise. 08:56 Cardiovascular: Positive for chest pain, of the to midchest with inspiration. 08:56 Cardiovascular: Positive for 08:56 Respiratory: Positive for pleurisy, Negative for cough. Exam: 08:59 Head/Face: Normocephalic, atraumatic. snw 08:59 ENT: Nares patent. No nasal discharge, no septal abnormalities noted. Tympanic membranes are normal and external auditory canals are clear. Oropharynx with no redness, swelling, or masses, exudates, or evidence of obstruction, uvula midline. Mucous membranes moist. Neck: Trachea midline, no thyromegaly or masses palpated, and no cervical lymphadenopathy. Supple, full range of motion without nuchal rigidity, or vertebral point tenderness. No Meningismus. Chest/axilla: Normal chest wall appearance and motion. Nontender with no deformity. No lesions are appreciated. 08:59 Abdomen/GI: Soft, non-tender, with normal bowel sounds. No distension or tympany. No guarding or rebound. No evidence of tenderness throughout. Back: No spinal tenderness. No costovertebral tenderness. Full range of motion. 08:59 Neuro: Awake and alert, GCS 15, oriented to person, place, time, and situation. Cranial nerves II-XII grossly intact. Motor strength 5/5 in all extremities. Sensory grossly intact. Cerebellar exam normal. Normal gait. Psych: Awake, alert, with orientation to person, place and time. Behavior, mood, and affect are within normal limits. 08:59 Constitutional: The patient appears alert, awake, anxious, pale. 08:59 Eyes: Conjunctiva: pale, bilaterally. 08:59 Cardiovascular: Rate: normal, Rhythm: regular, Pulses: no pulse deficits are appreciated, Heart sounds: murmur, systolic, heard in the aortic area, heard in the mitral area. 08:59 Respiratory: the patient does not display signs of respiratory distress, Respirations: normal, Breath sounds: are clear throughout, + pleurisy. 08:59 Skin: Appearance: Color: pale, Temperature: normal temperature, Moisture: dry, areas of thickened, darkened skin in multiple areas. Vital Signs: 08:14 BP 141 / 101; Pulse 95; Resp 18 S; Temp 98.5(O); Pulse Ox 99% on R/A; Weight 56.7 kg aa5 (R); Height 4 ft. 11 in. (149.86 cm) (R); Pain 10/10; 08:15 BP 141 / 101; Pulse 97; Resp 17; Pulse Ox 100% on R/A; tw2 09:30 BP 133 / 92; Pulse 94; Resp 17; Pulse Ox 100% on R/A; tw2 10:30 BP 150 / 99; Pulse 96; Resp 18; Pulse Ox 99% on R/A; tw2 11:25 BP 144 / 100; Pulse 85; Resp 19; Pulse Ox 99% on R/A; tw2 08:14 Body Mass Index 25.25 (56.70 kg, 149.86 cm) aa5 MDM: 08:14 Patient medically screened. mily 11:07 Data reviewed: vital signs, nurses notes. Data interpreted: Pulse oximetry: on room air snw is 100 %. Interpretation: normal. Counseling: I had a detailed discussion with the patient and/or guardian regarding: the historical points, exam findings, and any diagnostic results supporting the discharge/admit diagnosis, the presence of at least one elevated blood pressure reading (>120/80) during this emergency department visit, lab results, radiology results, the need for outpatient follow up, to return to the emergency department if symptoms worsen or persist or if there are any questions or concerns that arise at home. Special discussion: I have referred the patient to see his PCP for further evaluation of high blood pressure. Based on the history and exam findings, there is no indication for further emergent testing or inpatient evaluation. I discussed with the patient/guardian the need to see the OB Gyne specialist for further evaluation of the symptoms. I discussed with the patient/guardian the need to see the primary care provider for further evaluation of the symptoms. 04/13 08:32 Order name: Basic Metabolic Panel; Complete Time: 10:06 snw 04/13 08:32 Order name: CBC with Diff; Complete Time: 10:02 snw 04/13 08:32 Order name: LFT's; Complete Time: 10:06 snw 04/13 08:32 Order name: Magnesium; Complete Time: 10:06 snw 04/13 08:32 Order name: NT PRO-BNP; Complete Time: 10:06 snw 04/13 08:32 Order name: PT-INR; Complete Time: 10:02 snw 04/13 08:32 Order name: Troponin (emerg Dept Use Only); Complete Time: 10:06 snw 04/13 08:32 Order name: Flu; Complete Time: 10:23 snw 04/13 08:32 Order name: Strep; Complete Time: 10:23 snw 04/13 08:32 Order name: COVID-19 snw 04/13 08:32 Order name: TS; Complete Time: 10:34 snw 04/13 08:32 Order name: TSH; Complete Time: 10:06 snw 04/13 08:32 Order name: DD; Complete Time: 10:02 snw 04/13 08:32 Order name: Ferritin; Complete Time: 10:06 snw 04/13 08:32 Order name: XRAY Chest (1 view); Complete Time: 09:29 snw 04/13 08:32 Order name: EKG; Complete Time: 08:33 snw 04/13 08:32 Order name: Cardiac monitoring; Complete Time: 09:43 snw 04/13 08:32 Order name: EKG - Nurse/Tech; Complete Time: 09:43 snw 04/13 08:32 Order name: Retic Count; Complete Time: 10:02 snw 04/13 08:32 Order name: TRANSFERRIN SAT/IRON BINDING; Complete Time: 10:06 snw 04/13 08:32 Order name: Urine Culture snw 04/13 08:32 Order name: Urine For Protein, Random; Complete Time: 11:03 snw 04/13 09:35 Order name: Diet Regular; Complete Time: 09:36 bd 04/13 09:44 Order name: Urine Dipstick--Ancillary (enter results); Complete Time: 10:25 bd 04/13 09:45 Order name: Urine --Ancillary (enter results); Complete Time: 10:25 bd 04/13 10:09 Order name: CT Chest For PE Angio; Complete Time: 11:03 snw 04/13 10:23 Order name: Throat Culture EDMS 04/13 08:32 Order name: IV Saline Lock; Complete Time: 09:43 snw 04/13 08:32 Order name: Labs collected and sent; Complete Time: 09:43 snw 04/13 08:32 Order name: O2 Per Protocol; Complete Time: 09:43 snw 04/13 08:32 Order name: O2 Sat Monitoring; Complete Time: 09:43 snw 04/13 08:32 Order name: Urine Dipstick-Ancillary (obtain specimen); Complete Time: 09:46 snw 04/13 08:32 Order name: Droplet/Contact Precautions; Complete Time: 09:46 snw Administered Medications: 09:12 Drug: NS 0.9% 1000 ml Route: IV; Rate: 125 ml/hr; Site: right antecubital; tw2 11:25 Follow up: IV Status: Order to discontinue infusion iw 09:15 Drug: Decadron - Dexamethasone 10 mg Route: IVP; Site: right antecubital; tw2 10:13 Follow up: Response: No adverse reaction tw2 11:24 Drug: [place] 5 mg-325 mg 1 tabs Route: PO; iw 11:27 Follow up: Response: No adverse reaction iw Disposition: 15:58 Co-signature as Attending Physician, Fabián Seth MD I agree with the assessment and mily plan of care. Disposition: 04/13/20 11:04 Discharged to Home. Impression: Iron deficiency anemia, unspecified. - Condition is Stable. - Discharge Instructions: Iron Deficiency Anemia, Adult, Iron-Rich Diet. - Prescriptions for Vitamin 27- 0.8 mg Oral Tablet - take 1 tablet by ORAL route once daily; 60 tablet. - Medication Reconciliation Form, Thank You Letter, Antibiotic Education, Prescription Opioid Use form. - Follow up: Emergency Department; When: As needed; Reason: Worsening of condition. Follow up: Private Physician; When: 5 - 6 days; Reason: Recheck today's complaints, Continuance of care, Re-evaluation by your physician. Signatures: Dispatcher [employer] Fabián Nuñez MD MD cha Waters, Shelly, DREDGE RUNNER-C DREDGE RUNNER-Csnw Joanna Palmer, RN RN Ann Maki, RN RN aa5 Evette Hurley RN RN tw2 Corrections: (The following items were deleted from the chart) 11:30 11:04 04/13/2020 11:04 Discharged to Home. Impression: Iron deficiency anemia, iw unspecified. Condition is Stable. Forms are Medication Reconciliation Form, Thank You Letter, Antibiotic Education, Prescription Opioid Use. Follow up: Emergency Department; When: As needed; Reason: Worsening of condition. Follow up: Private Physician; When: 5 - 6 days; Reason: Recheck today's complaints, Continuance of care, Re-evaluation by your physician. snw
--- NOTE | 2020-04-13 11:05 | ER ---
Nurse's Notes [facility] Name: Evita Tomlin Age: 34 yrs Sex: Female : 1985 Arrival Date: 04/13/2020 Time: 08:14 Bed 18 Private MD: Diagnosis: Iron deficiency anemia, unspecified Presentation: 04/13 08:14 Chief complaint: Patient states: pain all over x 3 days ago. Pt states "I am all aa5 swollen, my feet, my knees, my hands and it hurts". Pt denies cough, denies fever, denies contact with a known or suspected case for COVID-19. 08:14 Acuity: KVNG 3 aa5 08:14 Method Of Arrival: EMS: [facility] aa5 08:14 Coronavirus screen: Client denies travel out of the [place] in the last 14 days. muscle aa5 pain, Client presents with at least one sign or symptom that may indicate coronavirus-19. Standard/surgical mask placed on the client. Provider contacted for isolation considerations. Ebola Screen: Patient negative for fever greater than or equal to 101.5 degrees Fahrenheit, and additional compatible Ebola Virus Disease symptoms. Initial Sepsis Screen: Does the patient meet any 2 criteria? No. Patient's initial sepsis screen is negative. Does the patient have a suspected source of infection? No. Patient's initial sepsis screen is negative. Risk Assessment: Do you want to hurt yourself or someone else? Patient reports no desire to harm self or others. Onset of symptoms was April 2020. Triage Assessment: 09:30 Pain: Complains of pain in "all over". EENT: No signs and/or symptoms were reported tw2 regarding the EENT system. Neuro: Level of Consciousness is obeys commands, drowsy, arousable to name being called verbally. Cardiovascular: Heart tones S1 S2 Patient's skin is warm and dry. Respiratory: Airway is patent Respiratory effort is even, unlabored, Respiratory pattern is regular, symmetrical, Breath sounds are clear bilaterally. GI: No signs and/or symptoms were reported involving the gastrointestinal system. Abdomen is flat, Bowel sounds present X 4 quads. : No signs and/or symptoms were reported regarding the genitourinary system. Derm: No signs and/or symptoms reported regarding the dermatologic system. Musculoskeletal: Range of motion: intact in all extremities. 11:25 General: Appears in no apparent distress. Behavior is cooperative. 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 - Social history:: Smoking status: Patient reports the use of cigarette tobacco products, smokes one pack cigarettes per day. Screenin:25 Abuse screen: Denies threats or abuse. Denies injuries from another. Nutritional iw screening: No deficits noted. Tuberculosis screening: No symptoms or risk factors identified. Fall Risk None identified. Assessment: 08:40 General: Appears in no apparent distress. Behavior is calm, cooperative, drowsy. Pain: tw2 Complains of pain in "all over". Neuro: Level of Consciousness is awake, obeys commands, Oriented to person, place, time, situation. 09:44 Reassessment: No changes from previously documented assessment. Patient and/or family tw2 updated on plan of care and expected duration. Pain level reassessed. pt dozes off frequently but easily arousable by name. 10:30 Reassessment: No changes from previously documented assessment. Patient and/or family tw2 updated on plan of care and expected duration. Pain level reassessed. Vital Signs: 08:14 BP 141 / 101; Pulse 95; Resp 18 S; Temp 98.5(O); Pulse Ox 99% on R/A; Weight 56.7 kg aa5 (R); Height 4 ft. 11 in. (149.86 cm) (R); Pain 10/10; 08:15 BP 141 / 101; Pulse 97; Resp 17; Pulse Ox 100% on R/A; tw2 09:30 BP 133 / 92; Pulse 94; Resp 17; Pulse Ox 100% on R/A; tw2 10:30 BP 150 / 99; Pulse 96; Resp 18; Pulse Ox 99% on R/A; tw2 11:25 BP 144 / 100; Pulse 85; Resp 19; Pulse Ox 99% on R/A; tw2 08:14 Body Mass Index 25.25 (56.70 kg, 149.86 cm) aa ED Course: 08:14 Patient arrived in ED. [facility] 08:14 Fabián Seth MD is Attending Physician. [facility] 08:14 Arm band placed on Patient placed in an exam room, on a stretcher. aa5 08:14 Patient has correct armband on for positive identification. Placed in gown. Bed in low aa5 position. Call light in reach. Side rails up X2. Pulse ox on. NIBP on. 08:24 Quyen Tolentino FNP-C is PHCP. snw 08:28 Triage completed. aa5 08:35 Evette Hurley RN is Primary Nurse. tw2 09:02 XRAY Chest (1 view) In Process Unspecified. EDMS 10:42 CT Chest For PE Angio In Process Unspecified. EDMS 11:25 IV discontinued, intact, bleeding controlled, No redness/swelling at site. Pressure iw dressing applied. 11:25 No provider procedures requiring assistance completed. iw Administered Medications: 09:12 Drug: NS 0.9% 1000 ml Route: IV; Rate: 125 ml/hr; Site: right antecubital; tw2 11:25 Follow up: IV Status: Order to discontinue infusion iw 09:15 Drug: Decadron - Dexamethasone 10 mg Route: IVP; Site: right antecubital; tw2 10:13 Follow up: Response: No adverse reaction tw2 11:24 Drug: [place] 5 mg-325 mg 1 tabs Route: PO; iw 11:27 Follow up: Response: No adverse reaction iw Outcome: 11:04 Discharge ordered by . snw 11:25 Discharged to home ambulatory. iw 11:25 Condition: good 11:25 Discharge instructions given to patient, Instructed on discharge instructions, follow up and referral plans. medication usage, Demonstrated understanding of instructions, follow-up care, medications, Prescriptions given X 1. 11:30 Patient left the ED. iw Addendum: 04/14/2020 15:22 Addendum: COVID-19 Result: Negative result given to RN to notify pt. Notified pt of s s negative COVID 19 swab results. Pt advised that even with a negative test result they should remain in isolation until symptom free for 3 days without medication. Pt also advised to return to the ED for worsening symptoms. Signatures: Dispatcher [employer] EDMS Fabián Seth MD MD cha Waters, Shelly, FNP-C LABORER OPERATOR-Csnw Joanna Palmer, RN RN iw Ann Reynoso, RN RN aa5 Hattie Mojica, RN RN ss Evette Hurley, RN RN tw2
[2020-04-13] MEDS ORDERED: HYDROCODONE/APAP 5/325 MG TAB ONE (11:24)
[2020-04-13 11:42] VITALS: TEMP 98.5
[2020-04-13 11:44] VITALS: O2SAT 100
[2020-04-13 11:46] VITALS: BP 133/92
--- NOTE | 2020-04-14 07:17 | EKG ---
Test Date: 2020-04-13 Test Time: 09:06:46 Dialysis Equipment Technician: MAHAD MEASUREMENT RESULTS: Intervals: Rate: 92 MS: 140 QRSD: 84 QT: 362 QTc: 447 [place]: P: 46 MS: 140 QRS: 24 T: 49 INTERPRETIVE STATEMENTS: Normal sinus rhythm Normal ECG Compared to ECG 04/08/2018 08:34:15 No significant changes Electronically Signed On 04-14-20 07:15:56 CDT by Gregg Chinchilla
== END 2020-04-13 11:30 | disposition home or self-care (01) ==
LOC: ER 08:11
DX: D50.9 Iron deficiency anemia, unspecified (principal); Z20.828 Contact with and (suspected) exposure to other viral communicable diseases; I10 Essential (primary) hypertension; F17.210 Nicotine dependence, cigarettes, uncomplicated
CPT/HCPCS: 36415; 71045; 71275; 80048; 80076; 81003; 81025; 82728; 83540; 83735; 83880; 84156; 84443; 84466; 84484; 85025; 85044; 85379; 85610; 86850; 86900; 86901; 87070; 87081; 87086; 87088; 87804; 93005; 96361; 96374; 99284; J1100; J7030; Q9967; U0002

== ENCOUNTER 2020-04-28 21:26 | Emergency (ER) | payer SELFPAY, OTHER ==
[2020-04-28 23:09] LABS: Basophils % 1.1 % (0-1.3); Hematocrit 29.8 % (36.0-45.0); Lymphocytes % 13.8 % (15.3-44.8); Protime INR 0.98; RBC Red Blood Cell Count 3.74 M/uL (3.86-4.86)
[2020-04-28 23:25] LABS: ALT/SGPT 129 U/L (12-78); AST/SGOT 80 U/L (15-37); Albumin 3.2 g/dL (3.4-5.0); Alkaline Phosphatase 125 U/L (45-117); BUN Blood Urea Nitrogen 10 mg/dL (7-18); Bicarbonate 25 mmol/L (21-32); Bilirubin Direct < 0.1 mg/dL (0-0.2); Bilirubin Total 0.2 mg/dL (0.2-1.0); Glucose Level 91 mg/dL (74-106); NT PRO-BNP 9 pg/mL (<125); Potassium 3.8 mmol/L (3.5-5.1); Protein, Total 7.9 g/dL (6.4-8.2); Sodium Level 141 mmol/L (136-145); Troponin (Emerg Dept Use Only) < 0.02 ng/mL (0.0-0.045)
--- NOTE | 2020-04-29 01:12 | ER ---
Nurse's Notes [facility] Name: Evita Tomlin Age: 34 yrs Sex: Female : 1985 Arrival Date: 04/28/2020 Time: 21:27 Bed 5 Private MD: Diagnosis: Edema, unspecified Presentation: 04/28 21:41 Chief complaint: Patient states: Bones aching, fatigue, bilateral leg and hands ll1 swelling for 10 days. Out of Diovan, would like a new prescription. Coronavirus screen: Client denies travel out of the [place] in the last 14 days. At this time, the client does not indicate any symptoms associated with coronavirus-19. Ebola Screen: Patient denies travel to an Ebola-affected area in the 21 days before illness onset. No acute neurological deficit is noted. Initial Sepsis Screen: Does the patient meet any 2 criteria? HR > 90 bpm. No. Patient's initial sepsis screen is negative. Risk Assessment: Do you want to hurt yourself or someone else? Patient reports no desire to harm self or others. Onset of symptoms was April 18, 2020. 21:41 Method Of Arrival: Ambulatory ll1 21:41 Acuity: KVNG 3 ll1 Stroke Activation: Symptom onset > 6 hours Physician: Stroke Attending; Name: ; Notified At: ; Arrived At: Physician: Chief Stroke Resident; Name: ; Notified At: ; Arrived At: Physician: Stroke Resident; Name: ; Notified At: ; Arrived At: Physician: ED Attending; Name: ; Notified At: ; Arrived At: Physician: ED Resident; Name: ; Notified At: ; Arrived At: Historical: - Allergies: 21:43 No Known Drug Allergies; ll1 - PMHx: 21:43 Hypertension; nerve pain; ll1 - PSHx: 21:43 ectopic ; ll1 - Immunization history:: Flu vaccine is not up to date. - Social history:: Smoking status: Patient reports the use of cigarette tobacco products, smokes one-half pack cigarettes per day, Patient/guardian denies using alcohol. Screenin:15 Abuse screen: Denies threats or abuse. Nutritional screening: No deficits noted. jb4 Tuberculosis screening: No symptoms or risk factors identified. Fall Risk None identified. Assessment: 22:15 General: Appears in no apparent distress. comfortable, Behavior is calm, cooperative, jb4 appropriate for age. Pain: Complains of pain in Generalized body pain Pain does not radiate. Pain currently is 9 out of 10 on a pain scale. Quality of pain is described as burning, aching, Is continuous. Neuro: Level of Consciousness is awake, alert, obeys commands, Oriented to person, place, time, situation. Cardiovascular: Patient's skin is warm and dry. Edema is 2+ to left ankle, left foot, right ankle and right foot pitting to left ankle, left foot, right ankle and right foot. Respiratory: Airway is patent Respiratory effort is even, unlabored, Respiratory pattern is regular, symmetrical. GI: No signs and/or symptoms were reported involving the gastrointestinal system. : No signs and/or symptoms were reported regarding the genitourinary system. EENT: No signs and/or symptoms were reported regarding the EENT system. Derm: Skin is intact, Skin is dry, Skin is normal, Skin temperature is warm. Musculoskeletal: Circulation, motion, and sensation intact. Range of motion: intact in all extremities. 23:30 Reassessment: Patient appears in no apparent distress at this time. Patient and/or jb4 family updated on plan of care and expected duration. Pain level reassessed. Patient is alert, oriented x 3, equal unlabored respirations, skin warm/dry/pink. 04/29 01:06 Reassessment: Patient appears in no apparent distress at this time. Patient and/or jb4 family updated on plan of care and expected duration. Pain level reassessed. 01:30 Reassessment: Patient appears in no apparent distress at this time. Patient and/or jb4 family updated on plan of care and expected duration. Pain level reassessed. Patient is alert, oriented x 3, equal unlabored respirations, skin warm/dry/pink. PT verbalized understanding of d/c and follow up instructions and ambulated out of ED with steady gait. Vital Signs: 04/28 21:41 BP 147 / 99; Pulse 99; Resp 17; Temp 98.1; Pulse Ox 96% ; Pain 9/10; ll1 22:50 BP 112 / 59 LA Supine (auto/reg); Pulse 87 LA; Resp 23 S; Temp 97.6(O); Pulse Ox 100% jb5 on R/A; 23:45 BP 153 / 104; Pulse 94; Resp 16; Pulse Ox 100% on R/A; jb4 04/29 01:15 BP 122 / 85; Pulse 96; Resp 16; Pulse Ox 100% on R/A; jb4 ED Course: 04/28 21:27 Patient arrived in ED. cl3 21:43 Triage completed. ll1 21:43 Arm band placed on. ll1 22:05 Petr Boo, RN is Primary Nurse. rr5 22:12 Cristino Mendoza PA is PHCP. jr8 22:12 Lito Wren MD is Attending Physician. jr8 22:15 Patient has correct armband on for positive identification. Bed in low position. Call jb4 light in reach. Side rails up X 1. Pulse ox on. NIBP on. 22:46 Basic Metabolic Panel Sent. jb5 22:47 Basic Metabolic Panel Sent. jb5 22:47 CBC with Diff Sent. jb5 22:47 LFT's Sent. jb5 22:47 Magnesium Sent. jb5 22:47 NT PRO-BNP Sent. jb5 22:47 PT-INR Sent. jb5 22:47 Troponin (emerg Dept Use Only) Sent. jb5 22:47 Inserted saline lock: 20 gauge in right antecubital area, using aseptic technique. jb5 Blood collected. 22:48 Door closed. Lights dimmed. Warm blanket given. Pillow given. Verbal reassurance given. jb5 Head of bed lowered. 23:42 Martinez Owens, RN is Primary Nurse. jb4 04/29 01:30 No provider procedures requiring assistance completed. IV discontinued, intact, jb4 bleeding controlled, No redness/swelling at site. Pressure dressing applied. Administered Medications: No medications were administered Outcome: 01:12 Discharge ordered by . jr8 01:30 Discharged to home ambulatory. jb4 01:30 Condition: stable 01:30 Discharge instructions given to patient, Instructed on discharge instructions, follow up and referral plans. Demonstrated understanding of instructions, follow-up care. 02:04 Patient left the ED. lp1 Signatures: Maddie Chong RN RN lp1 Cristino Mendoza PA PA jr8 Martinez Owens, RN RN jb4 Kristy Dyer jb5 Petr Boo, RN RN rr5 Ryne Palomares cl3 Nelsy Palomares RN RN ll1 Corrections: (The following items were deleted from the chart) 04/28 21:46 21:41 Chief complaint: Patient states: Bones aching, fatigue, bilateral leg and hands ll1 swelling for 10 days. ll1
--- NOTE | 2020-04-29 01:12 | EDPHYS ---
Physician Documentation [facility] Name: Evita Tomlin Age: 34 yrs Sex: Female : 1985 Arrival Date: 04/28/2020 Time: 21:27 Bed 5 Private MD: ED Physician Lito Wren HPI: 04/28 23:12 This 34 yrs old Black Female presents to ER via Ambulatory with complaints of Swelling. jr8 23:12 Patient stated that she continues to have swelling of extremities. Stated that was seen jr8 earlier in the month for same thing without acute findings. Came back today for worsening of swelling . Onset: The symptoms/episode began/occurred gradually, 4 week(s) ago. Severity of symptoms: At their worst the symptoms were moderate in the emergency department the symptoms are unchanged. It is unknown whether or not the patient has had similar symptoms in the past. The patient has not recently seen a physician. Historical: - Allergies: 21:43 No Known Drug Allergies; ll1 - PMHx: 21:43 Hypertension; nerve pain; ll1 - PSHx: 21:43 ectopic ; ll1 - Immunization history:: Flu vaccine is not up to date. - Social history:: Smoking status: Patient reports the use of cigarette tobacco products, smokes one-half pack cigarettes per day, Patient/guardian denies using alcohol. ROS: 23:12 Eyes: Negative for injury, pain, redness, and discharge, ENT: Negative for injury, jr8 pain, and discharge, Neck: Negative for injury, pain, and swelling, Respiratory: Negative for shortness of breath, cough, wheezing, and pleuritic chest pain, Abdomen/GI: Negative for abdominal pain, nausea, vomiting, diarrhea, and constipation, Back: Negative for injury and pain, MS/Extremity: Negative for injury and deformity, Skin: Negative for injury, rash, and discoloration, Neuro: Negative for headache, weakness, numbness, tingling, and seizure. 23:12 Cardiovascular: Positive for edema. Exam: 23:12 Eyes: Pupils equal round and reactive to light, extra-ocular motions intact. Lids and jr8 lashes normal. Conjunctiva and sclera are non-icteric and not injected. Cornea within normal limits. Periorbital areas with no swelling, redness, or edema. ENT: Nares patent. No nasal discharge, no septal abnormalities noted. Tympanic membranes are normal and external auditory canals are clear. Oropharynx with no redness, swelling, or masses, exudates, or evidence of obstruction, uvula midline. Mucous membranes moist. Neck: Trachea midline, no thyromegaly or masses palpated, and no cervical lymphadenopathy. Supple, full range of motion without nuchal rigidity, or vertebral point tenderness. No Meningismus. Cardiovascular: Regular rate and rhythm with a normal S1 and S2. No gallops, murmurs, or rubs. Normal PMI, no JVD. No pulse deficits. Respiratory: Lungs have equal breath sounds bilaterally, clear to auscultation and percussion. No rales, rhonchi or wheezes noted. No increased work of breathing, no retractions or nasal flaring. Abdomen/GI: Soft, non-tender, with normal bowel sounds. No distension or tympany. No guarding or rebound. No evidence of tenderness throughout. Back: No spinal tenderness. No costovertebral tenderness. Full range of motion. Skin: Warm, dry with normal turgor. Normal color with no rashes, no lesions, and no evidence of cellulitis. Neuro: Awake and alert, GCS 15, oriented to person, place, time, and situation. Cranial nerves II-XII grossly intact. Motor strength 5/5 in all extremities. Sensory grossly intact. Cerebellar exam normal. Normal gait. 23:12 Musculoskeletal/extremity: ROM: intact in all extremities, full active range of motion, full passive range of motion, Circulation is intact in all extremities. Pulses: noted to be 2+ in the right radial artery, right dorsalis pedis artery, left radial artery and left dorsalis pedis artery, Sensation intact. Non pitting edema noted to legs and arms . Vital Signs: 21:41 BP 147 / 99; Pulse 99; Resp 17; Temp 98.1; Pulse Ox 96% ; Pain 9/10; ll1 22:50 BP 112 / 59 LA Supine (auto/reg); Pulse 87 LA; Resp 23 S; Temp 97.6(O); Pulse Ox 100% jb5 on R/A; 23:45 BP 153 / 104; Pulse 94; Resp 16; Pulse Ox 100% on R/A; jb4 04/29 01:15 BP 122 / 85; Pulse 96; Resp 16; Pulse Ox 100% on R/A; jb4 MDM: 04/28 22:12 Patient medically screened. rust 04/29 00:35 Data reviewed: vital signs, nurses notes, lab test result(s), EKG, radiologic studies, jr plain films, and as a result, I will discharge patient. Data interpreted: Pulse oximetry: on room air is 100 %. Interpretation: normal. 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 00:38 ED course: Discussed with patient that she needs to f/u with ID, derm, and rheumatology rust for further work up for unexplained edema and rash. No acute findings on lab work that necessitates admission . 04/28 22:26 Order name: Basic Metabolic Panel rust 04/28 22:26 Order name: CBC with Diff; Complete Time: 23:10 rust 04/28 22:26 Order name: LFT's; Complete Time: 23:26 rust 04/28 22:26 Order name: Magnesium; Complete Time: 23:26 rust 04/28 22:26 Order name: NT PRO-BNP; Complete Time: 23:26 rust 04/28 22:26 Order name: PT-INR; Complete Time: 23:10 rust 04/28 22:26 Order name: Troponin (emerg Dept Use Only); Complete Time: 23:26 rust 04/28 22:26 Order name: Cardiac monitoring; Complete Time: 22:45 rust 04/28 22:26 Order name: IV Saline Lock; Complete Time: 22:45 rust 04/28 22:27 Order name: Labs collected and sent; Complete Time: 22:45 rust 04/28 22:27 Order name: O2 Per Protocol; Complete Time: 22:45 rust 04/28 22:27 Order name: O2 Sat Monitoring; Complete Time: 22:45 rust 04/28 22:27 Order name: Basic Metabolic Panel; Complete Time: 23:26 EDMS 04/29 00:39 Order name: HIV (1; Complete Time: 01:11 EDMS Administered Medications: No medications were administered Disposition: 06:12 Co-signature as Attending Physician, Lito Wren MD. [email or web address] Disposition: 04/29/20 01:12 Discharged to Home. Impression: Edema, unspecified. - Condition is Stable. - Discharge Instructions: Edema. - Medication Reconciliation Form, Thank You Letter, Antibiotic Education, Prescription Opioid Use form. - Follow up: Private Physician; When: 2 - 3 days; Reason: Recheck today's complaints, Continuance of care, Re-evaluation by your physician. - Problem is new. - Symptoms are unchanged. Signatures: Dispatcher [employer] EDKS Maddie Chong RN RN lp1 Cristino Mendoza PA PA jr8 Nelsy Palomares RN RN 1 Lito Wren MD MD [email or web address] Corrections: (The following items were deleted from the chart) 01:52 04/28 22:26 Urine Dipstick-Ancillary ordered. jr8 jb4 04/29 02:04 01:12 04/29/2020 01:12 Discharged to Home. Impression: Edema, unspecified. Condition is lp1 Stable. Forms are Medication Reconciliation Form, Thank You Letter, Antibiotic Education, Prescription Opioid Use. Follow up: Private Physician; When: 2 - 3 days; Reason: Recheck today's complaints, Continuance of care, Re-evaluation by your physician. Problem is new. Symptoms are unchanged. jr8
[2020-04-29 03:13] VITALS: TEMP 97.6; O2SAT 100
[2020-04-29 03:14] VITALS: BP 153/104
--- NOTE | 2020-04-29 08:39 | EKG ---
Test Date: 2020-04-28 Test Time: 22:33:02 Legal Clerk: ELIGIO MEASUREMENT RESULTS: Intervals: Rate: 86 DE: 144 QRSD: 76 QT: 368 QTc: 440 [place]: P: 47 DE: 144 QRS: 11 T: 55 INTERPRETIVE STATEMENTS: Normal sinus rhythm Normal ECG Compared to ECG 04/13/2020 09:06:46 No significant changes Electronically Signed On 04-29-20 08:38:11 CDT by Gregg Chinchilla
== END 2020-04-29 02:04 | disposition home or self-care (01) ==
LOC: ER 21:26
DX: R60.9 Edema, unspecified (principal); I10 Essential (primary) hypertension; F17.210 Nicotine dependence, cigarettes, uncomplicated
CPT/HCPCS: 36415; 80048; 80076; 83735; 83880; 84484; 85025; 85610; 93005; 99284; G0433

== ENCOUNTER 2021-08-03 10:44 | Emergency (ER) | payer OTHER, SELFPAY ==
[2021-08-03 12:12] LABS: Absolute Lymphocytes (CBC) 1.1 K/uL (0.7-4.9); Basophils % 0.5 % (0-1.3); Hematocrit 35.7 % (36.0-45.0); Lymphocytes % 14.5 % (15.3-44.8); MPV 9.6 fL (7.6-11.3); RBC Red Blood Cell Count 4.43 M/uL (3.86-4.86)
[2021-08-03 12:23] LABS: BUN Blood Urea Nitrogen 13 mg/dL (7-18); Bicarbonate 26 mmol/L (21-32); Glucose Level 92 mg/dL (74-106); Potassium 3.9 mmol/L (3.5-5.1); Sodium Level 142 mmol/L (136-145)
[2021-08-03 13:22] LABS: Urine Blood Trace-intact (Negative); Urine Glucose Negative (Negative); Urine Protein Negative (Negative); Urine Specific Gravity >=1.030 (1.005-1.030); Urine pH 5.5 (5.0-7.0)
--- NOTE | 2021-08-03 14:26 | ER ---
Nurse's Notes [facility] Name: Evita Tomlin Age: 36 yrs Sex: Female : 1985 Arrival Date: 08/03/2021 Time: 10:47 Bed 7 Private MD: Diagnosis: Rash and other nonspecific skin eruption;UTI/ Urinary tract infection, site not specified Presentation: 08/03 11:00 Chief complaint: Patient states: Rash to face off/on for 3 years. Feels like the rash ll1 has spread to her entire body now with itching. Vaginal pain, itching, "yeast infection" off/on for 1 year. Took an Flagyl pill which helped a little. No fever. Coronavirus screen: Vaccine status: Patient reports being unvaccinated. Client denies travel out of the [place] in the last 14 days. At this time, the client does not indicate any symptoms associated with coronavirus-19. Ebola Screen: Patient denies travel to an Ebola-affected area in the 21 days before illness onset. Initial Sepsis Screen: Does the patient meet any 2 criteria? HR > 90 bpm. No. Patient's initial sepsis screen is negative. Does the patient have a suspected source of infection? Yes: Other: vaginal infection. Risk Assessment: Do you want to hurt yourself or someone else? Patient reports no desire to harm self or others. Onset of symptoms was September 10, 2018. 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 - Social history:: Smoking status: Patient reports the use of cigarette tobacco products, smokes one pack cigarettes per day. Screenin:22 Abuse screen: Denies threats or abuse. Nutritional screening: No deficits noted. tw2 Tuberculosis screening: No symptoms or risk factors identified. Fall Risk None identified. Assessment: 11:32 Reassessment: provider at bedside at this time. tw2 11:59 General: Appears in no apparent distress. Behavior is calm, cooperative, appropriate tw2 for age. Pain: Denies pain. Neuro: Level of Consciousness is awake, alert, obeys commands, Oriented to person, place, time, situation. Respiratory: Airway is patent Respiratory effort is even, unlabored, Respiratory pattern is regular, symmetrical. Derm: Reports increased rash spreading to her body for past 3 years. 13:40 Reassessment: Patient appears in no apparent distress at this time. No changes from tw2 previously documented assessment. Patient and/or family updated on plan of care and expected duration. Pain level reassessed. Patient is alert, oriented x 3, equal unlabored respirations, skin warm/dry/pink. 14:49 Reassessment: Patient appears in no apparent distress at this time. No changes from tw2 previously documented assessment. Patient and/or family updated on plan of care and expected duration. Pain level reassessed. Patient is alert, oriented x 3, equal unlabored respirations, skin warm/dry/pink. Vital Signs: 11:00 BP 139 / 102; Pulse 92; Resp 16; Pulse Ox 98% ; Weight 56.7 kg; Height 4 ft. 11 in. ll1 (149.86 cm); Pain 10/10; 11:58 BP 155 / 91; Pulse 89; Resp 17; Temp 97.3(TE); Pulse Ox 100% on R/A; tw2 13:39 BP 149 / 87; Pulse 55; Resp 17; Pulse Ox 99% on R/A; tw2 11:00 Body Mass Index 25.25 (56.70 kg, 149.86 cm) ll1 ED Course: 10:47 Patient arrived in ED. sl2 10:47 Bed in low position. Call light in reach. Pulse ox on. NIBP on. tw2 11:03 Triage completed. ll1 11:05 Arm band placed on Patient placed in an exam room, on a stretcher. ll1 11:08 Jean Claude Martinez PA is PHCP. [facility] 11:08 Kelby Braden MD is Attending Physician. [facility] 11:22 Evette Hurley RN is Primary Nurse. tw2 11:51 Inserted saline lock: 20 gauge in right antecubital area, using aseptic technique. tw2 ,using aseptic technique. by JAILENE Mcdonald Blood collected. 14:33 Yinka Traore MD is Referral Physician. [facility] 14:49 No provider procedures requiring assistance completed. IV discontinued, intact, tw2 bleeding controlled, No redness/swelling at site. Pressure dressing applied. Administered Medications: No medications were administered Outcome: 14:25 Discharge ordered by . [facility] 14:49 Discharged to home ambulatory, with friend. tw2 14:49 Condition: stable 14:49 Discharge instructions given to patient, friend, Instructed on discharge instructions, follow up and referral plans. no drinking with medication, no driving heavy equipment, medication usage, safety practices, Demonstrated understanding of instructions, follow-up care, medications, Prescriptions given X 3. 14:49 Patient left the ED. tw2 Signatures: Jean Claude Martinez PA PA jmm Wise, Tara RN RN tw2 Nelsy Palomares RN RN ll1 Enedina Patel RN RN sl2 Corrections: (The following items were deleted from the chart) 11:57 11:56 Inserted saline lock: 20 gauge in right antecubital area, using aseptic tw2 technique. ,using aseptic technique. by JAILENE Mcdonald Blood collected. tw2
--- NOTE | 2021-08-03 14:26 | EDPHYS ---
Physician Documentation [facility] Name: Evita Tomlin Age: 36 yrs Sex: Female : 1985 Arrival Date: 08/03/2021 Time: 10:47 Bed 7 Private MD: ED Physician Kelby Braden HPI: 08/03 14:16 This 36 yrs old Black Female presents to ER via Ambulatory with complaints of rash. jmm 14:18 Onset: The symptoms/episode began/occurred gradually, 3 year(s) ago. Associated signs jmm and symptoms: Pertinent positives: itching, Pertinent negatives: fever, swelling of lips, swelling of throat, swelling of tongue. This is a 36-year-old female with a history of hypertension that presents emerged department with complaints of facial rash, left ear rash, generalized pruritus, vaginal itching which has been intermittent over the past 3 years. Patient states she took Flagyl which helped alleviate the vaginal itching.. 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 - Social history:: Smoking status: Patient reports the use of cigarette tobacco products, smokes one pack cigarettes per day. ROS: 14:18 Constitutional: Negative for fever, chills, and weight loss, Cardiovascular: Negative jmm for chest pain, palpitations, and edema, Respiratory: Negative for shortness of breath, cough, wheezing, and pleuritic chest pain. 14:18 Skin: Positive for rash. 14:18 All other systems are negative. Exam: 14:18 Constitutional: This is a well developed, well nourished patient who is awake, alert, jmm and in no acute distress. 14:18 Eyes: EOMI, no conjunctival erythema appreciated ENT: Moist Mucus Membranes Neck: Trachea midline, Supple Chest/axilla: Normal chest wall appearance and motion. Cardiovascular: Regular rate and rhythm. No edema appreciated Respiratory: Normal respirations, no respiratory distress appreciated Abdomen/GI: Non distended, soft Back: Normal ROM MS/ Extremity: Moves all extremities, no obvious deformities appreciated, no edema noted to the lower extremities 14:18 Psych: Behavior is normal, Mood is normal, Patient is cooperative and pleasant 14:18 Head/face: Noted is rash, that is erythematous. 14:18 Skin: Vital Signs: 11:00 BP 139 / 102; Pulse 92; Resp 16; Pulse Ox 98% ; Weight 56.7 kg; Height 4 ft. 11 in. ll1 (149.86 cm); Pain 10/10; 11:58 BP 155 / 91; Pulse 89; Resp 17; Temp 97.3(TE); Pulse Ox 100% on R/A; tw2 13:39 BP 149 / 87; Pulse 55; Resp 17; Pulse Ox 99% on R/A; tw2 11:00 Body Mass Index 25.25 (56.70 kg, 149.86 cm) ll1 MDM: 11:35 Patient medically screened. [facility] 14:18 Data reviewed: vital signs, nurses notes. Counseling: I had a detailed discussion with [facility] the patient and/or guardian regarding: the historical points, exam findings, and any diagnostic results supporting the discharge/admit diagnosis. 14:24 Counseling: I had a detailed discussion with the patient and/or guardian regarding: lab [facility] results, radiology results, the need for outpatient follow up, to return to the emergency department if symptoms worsen or persist or if there are any questions or concerns that arise at home. 08/03 11:35 Order name: CBC with Diff; Complete Time: 12:14 [facility] 08/03 11:35 Order name: BMP; Complete Time: 12:25 [facility] 08/03 11:35 Order name: Saline Lock; Complete Time: 11:56 [facility] 08/03 11:35 Order name: Urine Dipstick-Ancillary (obtain specimen); Complete Time: 13:39 [facility] 08/03 13:22 Order name: Urine Dipstick-Ancillary; Complete Time: 13:23 [facility] 08/03 11:36 Order name: Urine Test (obtain specimen); Complete Time: 13:39 [facility] Administered Medications: No medications were administered Disposition: 17:33 Co-signature as Attending Physician, Kelby Braden MD I agree with the assessment and rn plan of care. Attestation: The patient's history, exam findings, diagnostics, and a summary of any interventions or procedures was reviewed in detail with Jean Claude POTTS. Disposition Summary: 08/03/21 14:25 Discharge Ordered Location: Home [facility] Condition: Stable jmm Diagnosis - Rash and other nonspecific skin eruption jmm - UTI/ Urinary tract infection, site not specified [facility] Followup: jmm - With: Private Physician - When: 2 - 3 days - Reason: Recheck today's complaints, Continuance of care, Re-evaluation by your physician Followup: jmm - With: Yinka Traore MD - When: 2 - 3 days - Reason: Recheck today's complaints, Continuance of care, Re-evaluation by your physician Discharge Instructions: - Urinary Tract Infection, Adult [facility] - Discharge Summary Sheet tw2 Forms: - Medication Reconciliation Form [facility] - Work release form tw2 - Thank You Letter [facility] - Antibiotic Education [facility] - Prescription Opioid Use [facility] Prescriptions: - Hydroxyzine HCl 25 mg Oral Tablet - take 1 tablet by ORAL route every 6 hours As needed; 30 tablet; Refills: 0, [facility] Product Selection Permitted - Medrol (Jamal) 4 mg Oral Tablets, Dose Pack - take 1 tablet by ORAL route as directed - follow package instructions; 1 jmm packet; Refills: 0, Product Selection Permitted - Bactrim DS 800-160 mg Oral Tablet - take 1 tablet by ORAL route every 12 hours for 10 days; 20 tablet; Refills: 0, [facility] Product Selection Permitted Signatures: Dispatcher [employer] Jean Claude Mallory PA PA m Kelby Braden MD MD rn Lewis, Lynsay, RN RN ll1
[2021-08-03 15:00] VITALS: TEMP 97.3
[2021-08-03 15:01] VITALS: BP 149/87; O2SAT 99
== END 2021-08-03 14:49 | disposition home or self-care (01) ==
LOC: ER 10:44
DX: N39.0 Urinary tract infection, site not specified (principal); I10 Essential (primary) hypertension; F17.210 Nicotine dependence, cigarettes, uncomplicated
CPT/HCPCS: 36415; 80048; 81003; 85025; 99284

== ENCOUNTER 2021-09-21 07:36 | Emergency (ER) | payer SELFPAY ==
--- NOTE | 2021-09-21 08:16 | ER ---
Nurse's Notes [facility] Name: Evita Tomlin Age: 36 yrs Sex: Female : 1985 Arrival Date: 09/21/2021 Time: 07:37 Bed Waiting Private MD: Diagnosis: Auditory hallucinations Presentation: 09/21 07:47 Chief complaint: Patient states: Hearing voice and they are saying they are going to 7 kill me[address] PD brought me here and dropped me off saying I can't be by myself. Coronavirus screen: At this time, the client does not indicate any symptoms associated with coronavirus-19. Ebola Screen: No symptoms or risks identified at this time. Initial Sepsis Screen: Does the patient meet any 2 criteria? No. Patient's initial sepsis screen is negative. Does the patient have a suspected source of infection? No. Patient's initial sepsis screen is negative. Risk Assessment: Do you want to hurt yourself or someone else? Patient reports no desire to harm self or others. Onset of symptoms is unknown. 07:47 Method Of Arrival: Ambulatory [facility] 07:47 Acuity: KVNG 3 jl7 Triage Assessment: 07:50 General: Appears in no apparent distress. uncomfortable, Behavior is cooperative, jl7 anxious. Pain: Denies pain. Neuro: Level of Consciousness is awake, alert, obeys commands, Oriented to person, place, time, situation. Cardiovascular: Patient's skin is warm and dry. Respiratory: Airway is patent Respiratory effort is even, unlabored, Respiratory pattern is regular, symmetrical. Derm: Skin is pink, warm \\T\\ dry. 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 - Social history:: Smoking status: Patient reports the use of cigarette tobacco products, smokes one pack cigarettes per day. - Family history:: not pertinent. - Hospitalizations: : No recent hospitalization is reported. Screenin:58 Abuse screen: Denies threats or abuse. Denies injuries from another. Nutritional jl7 screening: No deficits noted. Tuberculosis screening: No symptoms or risk factors identified. Fall Risk None identified. Assessment: 07:50 General: See triage assessment. jl7 07:58 Reassessment: Dr. Braden in triage assessing pt. jl7 08:05 Reassessment: Pt states "My ex did a murder in [place] a few days or something jl7 ago." Pt reports feeling unsafe, like someone is going to come after her. Pt reported to PD and PD brought her to the hospital. Psych: 08:00 [place] Suicide Severity Screening: In the past month, have you wished you were jl7 or wished you could go to sleep and not wake up? Patient responds "No." "In the past month, have you actually had any thoughts of killing yourself?" Patient responds "no." "In your lifetime, have you ever done anything, started to do anything, or prepared to do anything to end your life?" Patient responds "no.". Subjective: Hallucinations are auditory. Objective: Patient is cooperative, defensive, suspicious, Speech is rambling. 08:00 Interventions: N/A. Safety Checks: N/A. Pt denies substance abuse. Commitment: N/A. jl7 Vital Signs: 07:47 BP 156 / 110; Pulse 99; Resp 17; Temp 98.1; Pulse Ox 100% on R/A; Weight 56.7 kg; jl7 Height 4 ft. 11 in. (149.86 cm); Pain 0/10; 07:47 Body Mass Index 25.25 (56.70 kg, 149.86 cm) jl7 ED Course: 07:37 Patient arrived in ED. am2 07:50 Triage completed. jl7 07:50 Arm band placed on right wrist. jl7 07:57 Kelby Braden MD is Attending Physician. rn 07:57 Nichole Estrada, JAILENE is Primary Nurse. jl7 07:58 Patient has correct armband on for positive identification. jl7 08:05 No provider procedures requiring assistance completed. Patient did not have IV access jl7 during this emergency room visit. Administered Medications: No medications were administered Outcome: 08:15 Discharge ordered by . rn 08:22 Discharged to home ambulatory. jl7 08:22 Condition: stable 08:22 Discharge instructions given to patient, Instructed on discharge instructions, follow up and referral plans. Demonstrated understanding of instructions, follow-up care. 08:22 Patient left the ED. jl7 Signatures: Kelby Braden MD MD rn Nichole Estrada RN RN jl7 Isi Clements
--- NOTE | 2021-09-21 08:16 | EDPHYS ---
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 08:10 The patient presents to the emergency department with paranoia, psychosis. Onset: The rn symptoms/episode began/occurred 1 year(s) ago. Associated signs and symptoms: Pertinent positives; hallucinations, paranoia, Pertinent negatives: chest pain, fever, homicidal ideation, suicide ideation. Severity of symptoms: At their worst the symptoms were moderate in the emergency department the symptoms are unchanged. The patient has experienced similar episodes in the past. The patient has not recently seen a physician. Patient reports about a year of auditory hallucinations. Got worse about a month ago after her significant other murdered somebody. She states she feels people are after her and try to get in her house. Has called police multiple times but states they are not doing anything. Called police again this morning and police brought her to the emergency room for evaluation. Patient does not have an emergency correction order. Patient denies command auditory hallucinations or visual hallucinations. Patient denies suicidal ideations or homicidal ideation. She states she just wants somebody to believe her and look into her complaints. Does have a history of cocaine abuse. No recent head injury. No other complaints.. 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 - Social history:: Smoking status: Patient reports the use of cigarette tobacco products, smokes one pack cigarettes per day. - Family history:: not pertinent. - Hospitalizations: : No recent hospitalization is reported. ROS: 08:10 Constitutional: Negative for fever, chills, and weight loss, Eyes: Negative for injury, rn pain, redness, and discharge, Neck: Negative for injury, pain, and swelling, Cardiovascular: Negative for chest pain, palpitations, and edema, Respiratory: Negative for shortness of breath, cough, wheezing, and pleuritic chest pain, Abdomen/GI: Negative for abdominal pain, nausea, vomiting, diarrhea, and constipation, Back: Negative for injury and pain, : Negative for injury, bleeding, discharge, and swelling, MS/Extremity: Negative for injury and deformity, Skin: Negative for injury, rash, and discoloration, Neuro: Negative for headache, weakness, numbness, tingling, and seizure, Psych: Negative for suicide ideation, homicidal ideation Exam: 08:10 Constitutional: This is a well developed, well nourished patient who is awake, alert, rn and in no acute distress. Head/Face: Normocephalic, atraumatic. Eyes: Periorbital areas with no swelling, redness, or edema. Cardiovascular: Regular rate and rhythm . No pulse deficits. Respiratory: No increased work of breathing, no retractions or nasal flaring. Abdomen/GI: Soft, non-tender Skin: Warm, dry MS/ Extremity: Pulses equal, no cyanosis. Neuro: Awake and alert, GCS 15, oriented to person, place, time, and situation. Cranial nerves II-XII grossly intact. Motor strength 5/5 in all extremities. Sensory grossly intact. Cerebellar exam normal. Normal gait. Psych: Awake, alert, with orientation to person, place and time. Seems slightly agitated but polite and cooperative. Vital Signs: 07:47 BP 156 / 110; Pulse 99; Resp 17; Temp 98.1; Pulse Ox 100% on R/A; Weight 56.7 kg; jl7 Height 4 ft. 11 in. (149.86 cm); Pain 0/10; 07:47 Body Mass Index 25.25 (56.70 kg, 149.86 cm) jl7 MDM: 07:57 Patient medically screened. rn 08:10 Differential diagnosis: depression, drug induced psychosis, paranoia. Data reviewed: rn vital signs, nurses notes, and as a result, I will discharge patient. Counseling: I had a detailed discussion with the patient and/or guardian regarding: the historical points, exam findings, and any diagnostic results supporting the discharge/admit diagnosis, the need for outpatient follow up, to return to the emergency department if symptoms worsen or persist or if there are any questions or concerns that arise at home. Special discussion: I discussed with the patient/guardian in detail that at this point there is no indication for admission to the hospital. It is understood, however, that if the symptoms persist or worsen the patient needs to return immediately for re-evaluation. Based on the history and exam findings, there is no indication for further emergent testing or inpatient evaluation. I discussed with the patient/guardian the need to see the primary care provider for further evaluation of the symptoms. I discussed with the patient/guardian the need to see the psychiatrist for further evaluation of the symptoms. ED course: Patient denies suicidal or homicidal ideation. No medical complaints. Patient refuses psychiatric evaluation. Patient does not appear to be a danger to herself or others at this moment, is polite and cooperative. Will DC home with return precautions and information for psychiatry.. 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
[2021-09-21 08:31] VITALS: BP 156/110; TEMP 98.1; O2SAT 100
== END 2021-09-21 08:22 | disposition home or self-care (01) ==
LOC: ER 07:36
DX: R44.0 Auditory hallucinations (principal); I10 Essential (primary) hypertension; F41.9 Anxiety disorder, unspecified; F17.210 Nicotine dependence, cigarettes, uncomplicated
CPT/HCPCS: 99284

== ENCOUNTER 2021-09-24 13:26 | Emergency (ER) | payer SELFPAY ==
--- NOTE | 2021-09-24 14:54 | EDPHYS ---
Physician Documentation [facility] Name: Evita Tomlin Age: 36 yrs Sex: Female : 1985 Arrival Date: 09/24/2021 Time: 13:29 Bed 27 Private MD: ED Physician Fabián Seth HPI: 09/24 14:48 This 36 yrs old Black Female presents to ER via Ambulatory with complaints of Ear Pain. mily 14:48 The patient presents with a foreign body sensation, something, string. The complaints mily affect the left ear. Onset: The symptoms/episode began/occurred 3 day(s) ago. Modifying factors: The symptoms are alleviated by covering ear, the symptoms are aggravated by nothing. Associated signs and symptoms: The patient has no apparent associated signs or symptoms. Severity of symptoms: At their worst the symptoms were mild in the emergency department the symptoms are unchanged. The patient has not experienced similar symptoms in the past. 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 - Social history:: Smoking status: Patient denies any tobacco usage or history of. - Family history:: not pertinent. ROS: 14:48 Constitutional: Negative for fever, chills, and weight loss, Eyes: Negative for injury, mily pain, redness, and discharge, Neck: Negative for injury, pain, and swelling, Cardiovascular: Negative for chest pain, palpitations, and edema, Respiratory: Negative for shortness of breath, cough, wheezing, and pleuritic chest pain, Abdomen/GI: Negative for abdominal pain, nausea, vomiting, diarrhea, and constipation, Back: Negative for injury and pain, : Negative for injury, bleeding, discharge, and swelling, MS/Extremity: Negative for injury and deformity, Skin: Negative for injury, rash, and discoloration, Neuro: Negative for headache, weakness, numbness, tingling, and seizure, Psych: Negative for depression, anxiety, suicide ideation, homicidal ideation, and hallucinations, Allergy/Immunology: Negative for hives, rash, and allergies, Endocrine: Negative for neck swelling, polydipsia, polyuria, polyphagia, and marked weight changes, Hematologic/Lymphatic: Negative for swollen nodes, abnormal bleeding, and unusual bruising. 14:48 ENT: Positive for ear pain, foreign body sensation. Exam: 14:48 Constitutional: This is a well developed, well nourished patient who is awake, alert, mily and in no acute distress. Head/Face: Normocephalic, atraumatic. Eyes: Pupils equal round and reactive to light, extra-ocular motions intact. Lids and lashes normal. Conjunctiva and sclera are non-icteric and not injected. Cornea within normal limits. Periorbital areas with no swelling, redness, or edema. Neck: Trachea midline, no thyromegaly or masses palpated, and no cervical lymphadenopathy. Supple, full range of motion without nuchal rigidity, or vertebral point tenderness. No Meningismus. Chest/axilla: Normal chest wall appearance and motion. Nontender with no deformity. No lesions are appreciated. Cardiovascular: Regular rate and rhythm with a normal S1 and S2. No gallops, murmurs, or rubs. Normal PMI, no JVD. No pulse deficits. Respiratory: Lungs have equal breath sounds bilaterally, clear to auscultation and percussion. No rales, rhonchi or wheezes noted. No increased work of breathing, no retractions or nasal flaring. Abdomen/GI: Soft, non-tender, with normal bowel sounds. No distension or tympany. No guarding or rebound. No evidence of tenderness throughout. Back: No spinal tenderness. No costovertebral tenderness. Full range of motion. Skin: Warm, dry with normal turgor. Normal color with no rashes, no lesions, and no evidence of cellulitis. MS/ Extremity: Pulses equal, no cyanosis. Neurovascular intact. Full, normal range of motion. Neuro: Awake and alert, GCS 15, oriented to person, place, time, and situation. Cranial nerves II-XII grossly intact. Motor strength 5/5 in all extremities. Sensory grossly intact. Cerebellar exam normal. Normal gait. Psych: Awake, alert, with orientation to person, place and time. Behavior, mood, and affect are within normal limits. 14:48 ENT: Ear canal(s): bleeding, is not appreciated, bloody discharge, is not appreciated, cerumen impaction, is not appreciated, erythema, that is minimal, of the left canal, foreign body, is not appreciated, purulent discharge, is not appreciated, swelling, that is minimal, of the left canal, TM's: dullness, on the left, erythema. Vital Signs: 13:34 BP 173 / 117; Pulse 100; Resp 18; Temp 98.9(TE); Pulse Ox 96% on R/A; tw2 MDM: 13:54 Patient medically screened. mily 14:51 Differential diagnosis: otitis media, otitis externa, ruptured TM, foreign body, acute mily otalgia, cerumen impaction, barotrauma . Data reviewed: vital signs, nurses notes. 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 rate is 100 beats/min, Pulse oximetry: on room air is 96 %. Counseling: I had a detailed discussion with the patient and/or guardian regarding: the historical points, exam findings, and any diagnostic results supporting the discharge/admit diagnosis, lab results, radiology results, the need for outpatient follow up, for definitive care, an ENT specialist, a family practitioner. Administered Medications: 14:57 Drug: Motrin (ibuprofen) 600 mg Route: PO; iw 15:00 Follow up: Response: No adverse reaction iw 14:57 Drug: Amoxicillin 500 mg Route: PO; iw 15:00 Follow up: Response: No adverse reaction iw 14:57 Drug: Norvasc (amlodipine) 5 mg Route: PO; iw 15:00 Follow up: Response: No adverse reaction iw Disposition Summary: 09/24/21 14:53 Discharge Ordered Location: Home mily Problem: new mily Symptoms: have improved mily Condition: Stable mily Diagnosis - Acute serous otitis media, left ear mily - Other otitis externa, left ear mily - Essential (primary) hypertension mily Followup: mily - With: Private Physician - When: 2 - 3 days - Reason: Recheck today's complaints, Continuance of care, Re-evaluation by your physician Followup: mily - With: Lena Christianson MD - When: 2 - 3 days - Reason: Recheck today's complaints, Re-evaluation by your physician Discharge Instructions: - Discharge Summary Sheet mily - Ear Drops, Adult mily - Otitis Media, Adult mily - Otitis Externa mily - Hypertension, Adult mily - Otitis Media, Adult, [id number] mily - Hypertension, Adult, [id number] mily - How to Take Your Blood Pressure, [id number] mily - Ear Drops, Adult, [id number] mily - Aspirin and Your Heart mily - Managing Your Hypertension mily Forms: - Medication Reconciliation Form mily - Thank You Letter mily - Antibiotic Education mily - Prescription Opioid Use mily Prescriptions: - Amoxicillin 500 mg Oral Capsule - take 1 capsule by ORAL route every 8 hours for 10 days; 30 tablet; Refills: 0, mily Product Selection Permitted - Cortisporin-TC 3.3-3-10-0.5 mg/mL Otic Suspension - instill 4 drops by OTIC route every 6 hours; 1 bottle; Refills: 0, Product mily Selection Permitted - Norvasc 5 mg Oral Tablet - take 1 tablet by ORAL route once daily; 20 tablet; Refills: 0, Product mily Selection Permitted Signatures: Dispatcher [employer] Fabián Nuñez MD MD cha Williams, Irene RN JAILENE iw Evette Hurley RN RN tw2
--- NOTE | 2021-09-24 14:54 | ER ---
Nurse's Notes [facility] Name: Evita Tomlin Age: 36 yrs Sex: Female : 1985 Arrival Date: 09/24/2021 Time: 13:29 Bed 27 Private MD: Diagnosis: Acute serous otitis media, left ear;Other otitis externa, left ear;Essential (primary) hypertension Presentation: 09/24 13:32 Chief complaint: Patient states: i want to get my LEFT ear checked out. it has been tw2 hurting for a few months. i just wanna get it checked out. i have had some yellow drainage from the LEFT ear as well. Coronavirus screen: At this time, the client does not indicate any symptoms associated with coronavirus-19. Ebola Screen: Patient denies travel to an Ebola-affected area in the 21 days before illness onset. Initial Sepsis Screen: Does the patient meet any 2 criteria? No. Patient's initial sepsis screen is negative. Does the patient have a suspected source of infection? No. Patient's initial sepsis screen is negative. Risk Assessment: Do you want to hurt yourself or someone else? Patient reports no desire to harm self or others. Onset of symptoms was September 24, 2021. 13:32 Method Of Arrival: Ambulatory tw2 13:32 Acuity: KVNG 4 tw2 Triage Assessment: 13:35 General: Appears in no apparent distress. Behavior is calm, cooperative, appropriate tw2 for age. Pain: Complains of pain in left ear. EENT: Reports pain in left ear. 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 - Social history:: Smoking status: Patient denies any tobacco usage or history of. - Family history:: not pertinent. Assessment: 15:00 Reassessment: Patient appears in no apparent distress at this time. Patient and/or iw family updated on plan of care and expected duration. Pain level reassessed. Patient is alert, oriented x 3, equal unlabored respirations, skin warm/dry/pink. Vital Signs: 13:34 BP 173 / 117; Pulse 100; Resp 18; Temp 98.9(TE); Pulse Ox 96% on R/A; tw2 ED Course: 13:29 Patient arrived in ED. mr 13:34 Triage completed. tw2 13:35 Arm band placed on. tw2 13:50 Joanna Palmer, RN is Primary Nurse. iw 13:54 Fabián Seth MD is Attending Physician. mily 14:52 Lena Christianson MD is Referral Physician. mily 15:00 No provider procedures requiring assistance completed. Patient did not have IV access iw during this emergency room visit. Administered Medications: 14:57 Drug: Motrin (ibuprofen) 600 mg Route: PO; iw 15:00 Follow up: Response: No adverse reaction iw 14:57 Drug: Amoxicillin 500 mg Route: PO; iw 15:00 Follow up: Response: No adverse reaction iw 14:57 Drug: Norvasc (amlodipine) 5 mg Route: PO; iw 15:00 Follow up: Response: No adverse reaction iw Outcome: 14:53 Discharge ordered by . [facility] 15:00 Discharged to home ambulatory. iw 15:00 Condition: good 15:00 Discharge instructions given to patient, Instructed on discharge instructions, follow up and referral plans. Demonstrated understanding of instructions, follow-up care, medications, Prescriptions given X 3. 15:00 Patient left the ED. iw Signatures: Fabián Seth MD MD cha Rivera, Mary mr Joanna Palmer, RN RN iw Evette Hurley RN RN tw2
[2021-09-24] MEDS ORDERED: AMLODIPINE 5 MG TAB ONE (14:55)
[2021-09-24] MEDS ORDERED: IBUPROFEN 200 MG TAB PO ONE (14:55)
[2021-09-24] MEDS ORDERED: AMOXICILLIN TRIHYDR 250 MG CAP ONE (14:55)
[2021-09-24 15:21] VITALS: BP 173/117; TEMP 98.9; O2SAT 96
== END 2021-09-24 15:00 | disposition home or self-care (01) ==
LOC: ER 13:26
DX: H65.02 Acute serous otitis media, left ear (principal); H60.8X2 Other otitis externa, left ear; I10 Essential (primary) hypertension
CPT/HCPCS: 99283

== ENCOUNTER 2021-11-08 15:57 | Emergency (ER) | payer OTHER ==
[2021-11-08 16:23] LABS: Urine Blood 3+ (Negative); Urine Glucose Negative (Negative); Urine Protein 1+ (Negative); Urine Specific Gravity >=1.030 (1.005-1.030); Urine pH 5.5 (5.0-7.0)
--- NOTE | 2021-11-08 16:26 | EDPHYS ---
Physician Documentation [facility] Name: Evita Tomlin Age: 36 yrs Sex: Female : 1985 Arrival Date: 11/08/2021 Time: 16:00 Bed 4 Private MD: ED Physician Austin Landry HPI: 11/08 16:39 This 36 yrs old Black Female presents to ER via Ambulatory with complaints of Vaginal kb Bleeding. 16:39 The patient presents with vaginal bleeding that is spotting. Onset: The kb symptoms/episode began/occurred today. Modifying factors: The symptoms are alleviated by nothing, the symptoms are aggravated by nothing. Associated signs and symptoms: Pertinent positives: vaginal bleeding. Severity of symptoms: At their worst the symptoms were mild, in the emergency department the symptoms are unchanged. The patient has not experienced similar symptoms in the past. The patient has not recently seen a physician. Pt reports her period ended yesterday and she started spotting today. States she took a test 2 days ago and it was positive. Also believes she has a UTI because she didn't take the antibiotics that she was supposed to when she was diagnosed with a UTI 2 weeks ago. 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 - Social history:: Smoking status: Patient reports the use of cigarette tobacco products, unknown amount. ROS: 16:30 Constitutional: Negative for fever, chills, and weight loss. kb 16:30 : Positive for vaginal bleeding. 16:30 All other systems are negative. Exam: 16:39 Constitutional: This is a well developed, well nourished patient who is awake, alert, kb and in no acute distress. Head/Face: Normocephalic, atraumatic. ENT: Moist Mucous membranes Respiratory: Respirations even and unlabored. No increased work of breathing. Talking in full sentences Abdomen/GI: Soft, non-tender. No distention Skin: Warm, dry with normal turgor. Normal color. MS/ Extremity: Pulses equal, no cyanosis. Neurovascular intact. Full, normal range of motion. Neuro: Awake and alert, GCS 15, oriented to person, place, time, and situation. Moves all extremities. Normal gait. Psych: Awake, alert, with orientation to person, place and time. Behavior, mood, and affect are within normal limits. Vital Signs: 16:00 BP 144 / 64; Pulse 77; Resp 16 S; Temp 98.2(O); Pulse Ox 100% on R/A; Weight 56.7 kg; jg9 Height 4 ft. 11 in. (149.86 cm); 16:00 Body Mass Index 25.25 (56.70 kg, 149.86 cm) jg9 MDM: 16:06 Patient medically screened. kb 16:27 Data reviewed: vital signs, nurses notes. Data interpreted: Pulse oximetry: on room air kb is 100 %. Interpretation: normal. Counseling: I had a detailed discussion with the patient and/or guardian regarding: the historical points, exam findings, and any diagnostic results supporting the discharge/admit diagnosis, lab results, the need for outpatient follow up, an OB/Gyne specialist, to return to the emergency department if symptoms worsen or persist or if there are any questions or concerns that arise at home, UPT negative. 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 11/08 16:22 Order name: Urine Dipstick-Ancillary; Complete Time: 16:24 EDMS 11/08 16:29 Order name: Urine --Ancillary (enter results) bd Administered Medications: 16:32 Drug: Macrobid (nitrofurantoin) 100 mg Route: PO; ke1 16:36 Follow up: Response: No adverse reaction; Medication administered at discharge. jg9 Disposition Summary: 11/08/21 16:25 Discharge Ordered Location: Home kb Condition: Stable kb Diagnosis - UTI/ Urinary tract infection, site not specified kb Followup: kb - With: Emergency Department - When: As needed - Reason: Worsening of condition Followup: kb - With: Private Physician - When: 2 - 3 days - Reason: Recheck today's complaints, Continuance of care, Re-evaluation by your physician Discharge Instructions: - Discharge Summary Sheet kb - Urinary Tract Infection, Adult, [id number] kb Forms: - Medication Reconciliation Form kb - Thank You Letter kb - Antibiotic Education kb - Prescription Opioid Use kb Prescriptions: - Macrobid 100 mg Oral Capsule - take 1 capsule by ORAL route every 12 hours for 10 days; 20 capsule; Refills: kb 0, Product Selection Permitted Signatures: Dispatcher [employer] Torri Matthews FNP-C FNP-Ckb Gilmore, Jennifer, RN RN jg9 Tyson Drummond RN RN ke1
[2021-11-08] MEDS ORDERED: NITROFURAN MACRO 100 MG CAP PO ONE (16:33)
--- NOTE | 2021-11-08 16:37 | ER ---
Nurse's Notes [facility] Name: Evita Tomlin Age: 36 yrs Sex: Female : 1985 Arrival Date: 11/08/2021 Time: 16:00 Bed 4 Private MD: Diagnosis: UTI/ Urinary tract infection, site not specified Presentation: 11/08 16:00 Chief complaint: Patient states: I took a test 2 days ago and it was positive jg9 and I started bleeding today. I also think I have an infection all over my body-patient not able top give detail of the complaints. Coronavirus screen: Vaccine status: Patient reports being unvaccinated. Ebola Screen: Patient negative for fever greater than or equal to 101.5 degrees Fahrenheit, and additional compatible Ebola Virus Disease symptoms Patient denies exposure to infectious person. Patient denies travel to an Ebola-affected area in the 21 days before illness onset. Initial Sepsis Screen: Does the patient meet any 2 criteria? No. Patient's initial sepsis screen is negative. Does the patient have a suspected source of infection? No. Patient's initial sepsis screen is negative. Risk Assessment: Do you want to hurt yourself or someone else? Patient reports no desire to harm self or others. 16:00 Method Of Arrival: Ambulatory j9 16:00 Acuity: KVNG 5 jg9 16:29 Onset of symptoms is unknown. jg9 Triage Assessment: 16:00 General: Appears in no apparent distress. Behavior is calm, cooperative. Pain: Denies jg9 pain. : Reports vaginal bleeding that is spotty. 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 - Social history:: Smoking status: Patient reports the use of cigarette tobacco products, unknown amount. Screenin:28 Abuse screen: Denies threats or abuse. Denies injuries from another. Nutritional jg9 screening: No deficits noted. Tuberculosis screening: No symptoms or risk factors identified. Fall Risk None identified. Assessment: 16:00 : n/a. jg9 Vital Signs: 16:00 BP 144 / 64; Pulse 77; Resp 16 S; Temp 98.2(O); Pulse Ox 100% on R/A; Weight 56.7 kg; jg9 Height 4 ft. 11 in. (149.86 cm); 16:00 Body Mass Index 25.25 (56.70 kg, 149.86 cm) jg9 ED Course: 16:00 Patient arrived in ED. ds1 16:06 Torri Alexis FNP-C is [facility]. kb 16:06 Austin Landry MD is Attending Physician. kb 16:08 Kristy Bonilla, RN is Primary Nurse. jg9 16:27 Triage completed. jg9 16:28 Arm band placed on right wrist. jg9 16:29 Patient has correct armband on for positive identification. Bed in low position. Call jg9 light in reach. 16:29 No provider procedures requiring assistance completed. jg9 16:30 Patient did not have IV access during this emergency room visit. jg9 Administered Medications: 16:32 Drug: Macrobid (nitrofurantoin) 100 mg Route: PO; ke1 16:36 Follow up: Response: No adverse reaction; Medication administered at discharge. jg9 Outcome: 16:25 Discharge ordered by . kb 16:29 Discharged to home ambulatory. jg9 16:29 Condition: stable 16:29 Discharge instructions given to patient. 16:36 Patient left the ED. jg9 Signatures: Torri Alexis FNP-C FNP-Ckb Sanford, Demi ds1 Kristy Bonilla, JAILENE DENT jg9 Tyson Drummond RN RN ke1
[2021-11-08 16:42] VITALS: BP 144/64; TEMP 98.2; O2SAT 100
[2021-11-08 16:43] LABS: Urine Specific Gravity/Preg >1.030 (1.005-1.030)
== END 2021-11-08 16:36 | disposition home or self-care (01) ==
LOC: ER 15:57
DX: N39.0 Urinary tract infection, site not specified (principal)
CPT/HCPCS: 81003; 81025; 99283

== ENCOUNTER 2021-11-19 07:24 | Emergency (ER) | payer OTHER ==
[2021-11-19] MEDS ORDERED: MORPHINE 4 MG/ML SYR ONE (07:46)
[2021-11-19] MEDS ORDERED: NA CHLORIDE 0.9% 1,000 ML ONE (07:46)
[2021-11-19] MEDS ORDERED: ONDANSETRON 4 MG/2 ML VIAL ONE (07:46)
[2021-11-19 07:53] LABS: Absolute Lymphocytes (CBC) 1.7 K/uL (0.7-4.9); Hematocrit 30.5 % (36.0-45.0); Lymphocytes % 24.3 % (15.3-44.8); RBC Red Blood Cell Count 3.78 M/uL (3.86-4.86)
[2021-11-19 08:21] LABS: ALT/SGPT 25 U/L (12-78); AST/SGOT 17 U/L (15-37); Albumin 3.3 g/dL (3.4-5.0); Alkaline Phosphatase 50 U/L (45-117); BUN Blood Urea Nitrogen 10 mg/dL (7-18); Bicarbonate 27 mmol/L (21-32); Bilirubin Total 0.2 mg/dL (0.2-1.0); Glucose Level 92 mg/dL (74-106); NT PRO-BNP 15 pg/mL (<125); Potassium 3.1 mmol/L (3.5-5.1); Sodium Level 140 mmol/L (136-145)
[2021-11-19 08:28] LABS: Bilirubin Direct < 0.1 mg/dL (0-0.2); Troponin High Sensitivity < 3.00 pg/mL (<58.9)
[2021-11-19] MEDS ORDERED: POTASSIUM 25 MEQ EFFERV TAB ONE (09:01)
[2021-11-19] MEDS ORDERED: AMLODIPINE 10 MG TAB ONE (09:13)
--- NOTE | 2021-11-19 10:42 | RAD REPORT ---
EXAM DESCRIPTION: RAD - Chest Single View - 11/19/2021 7:55 am CLINICAL HISTORY: CHEST PAIN Chest pain. COMPARISON: Chest Single View dated 04/13/2020; Chest Single View dated 04/08/2018 FINDINGS: Portable technique limits examination quality. The lungs are grossly clear. The heart is normal in size. No displaced fractures. IMPRESSION: No acute intrathoracic process suspected.
--- NOTE | 2021-11-19 10:58 | ER ---
Nurse's Notes [facility] Name: Evita Tomlin Age: 36 yrs Sex: Female : 1985 Arrival Date: 11/19/2021 Time: 07:28 Bed 8 Private MD: Diagnosis: Anxiety disorder, unspecified;Chest pain, unspecified;Tobacco abuse counseling;Tobacco use;Essential (primary) hypertension Presentation: 11/19 07:30 Chief complaint: EMS states: Pt c/o chest pain that started approx 1 hour ago, also c/o ph headache, hx of HTN but is not currently on medication, 12 lead normal, initial BP 160/110, HR 91, Spo2 99% RA, ASA and nitro x 1 given, 20G to RAC. Coronavirus screen: Vaccine status: Patient reports being unvaccinated. At this time, the client does not indicate any symptoms associated with coronavirus-19. Ebola Screen: No symptoms or risks identified at this time. Initial Sepsis Screen: Does the patient meet any 2 criteria? No. Patient's initial sepsis screen is negative. Does the patient have a suspected source of infection? No. Patient's initial sepsis screen is negative. Risk Assessment: Do you want to hurt yourself or someone else? Patient reports no desire to harm self or others. Onset of symptoms was November 19, 2021. 07:30 Method Of Arrival: EMS: [facility] 07:30 Acuity: KVNG 3 ph Triage Assessment: 07:32 General: Appears in no apparent distress. uncomfortable, Behavior is cooperative, ph drowsy, Denies fever, feeling ill. Pain: Complains of pain in chest and head. Neuro: Level of Consciousness is awake, alert, obeys commands, Oriented to person, place, time, situation. Cardiovascular: Reports chest pain, shortness of breath, Capillary refill < 3 seconds in bilateral fingers Patient's skin is warm and dry. Rhythm is sinus rhythm. Respiratory: Airway is patent Respiratory effort is even, unlabored. GI: No signs and/or symptoms were reported involving the gastrointestinal system. Derm: Skin is intact, Skin is pink, warm \\T\\ dry. Musculoskeletal: Circulation, motion, and sensation intact. Range of motion: intact in all extremities. 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 - Social history:: Smoking status: Patient reports the use of cigarette tobacco products, smokes one pack cigarettes per day. - Family history:: not pertinent. Screenin:34 Abuse screen: Denies threats or abuse. Denies injuries from another. Nutritional ph screening: No deficits noted. Tuberculosis screening: No symptoms or risk factors identified. Fall Risk None identified. Assessment: 07:34 Reassessment: SEE TRIAGE ASSESSMENT. ph 08:39 Reassessment: Patient appears in no apparent distress at this time. Patient and/or ph family updated on plan of care and expected duration. Pain level reassessed. 09:51 Reassessment: Pt refusing CT at this time, provider aware. ph 10:20 Reassessment: Patient appears in no apparent distress at this time. Patient and/or ph family updated on plan of care and expected duration. Pain level reassessed. Pt again refusing CT, states, " I don't know, I just want my cousin here. I'm waiting on my cousin." ERP notified of refusal, additional blood work sent to lab for repeat troponin. 11:02 Reassessment: Pt missing from room, found walking back from restroom w/ IV still in ph place, tearful, states, " I just want this out and I want to go home." D/C ordered by Dr Seth, IV removed and pt ambulated to lobby after signing d/c papers. Vital Signs: 07:30 BP 159 / 103; Pulse 81; Resp 18; Temp 97.4; Pulse Ox 100% on R/A; Weight 56.7 kg; ph Height 4 ft. 11 in. (149.86 cm); 08:39 BP 148 / 108; Pulse 88; Resp 18; Pulse Ox 99% on R/A; ph 10:00 BP 142 / 99; Pulse 91; Resp 16; Pulse Ox 98% on R/A; ph 11:04 BP 137 / 101; Pulse 89; Resp 16; Temp 97.2; Pulse Ox 99% on R/A; ph 07:30 Body Mass Index 25.25 (56.70 kg, 149.86 cm) ph Vitals: 08:39 Cardiac Rhythm Assessment Sinus rhythm. ph ED Course: 07:28 Patient arrived in ED. aa5 07:29 Fabián Seth MD is Attending Physician. mily 07:30 Grace Talavera, JAILENE is Primary Nurse. ph 07:32 Triage completed. ph 07:33 Arm band placed on right wrist. Patient placed in an exam room, on a stretcher, on ph nurse monitoring, on pulse oximetry. 07:35 Patient has correct armband on for positive identification. Bed in low position. Call ph light in reach. Side rails up X 1. nurse monitoring on. Pulse ox on. NIBP on. Door closed. Noise minimized. Lights dimmed. Warm blanket given. 07:50 Initial lab(s) drawn, by ED staff, sent to lab. EKG done, by ED staff, reviewed by sarabjit Seth MD. Maintain EMS IV. Dressing intact. Good blood return noted. Site clean \\T\\ dry. Gauge \\T\\ site: 20 RAC. IV is patent, is intact, with fluids infusing freely, with good blood return, Flushed right antecubital w/ 10 ml NS. 07:55 XRAY Chest (1 view) In Process Unspecified. EDMS 10:57 Alberto Castro MD is Referral Physician. mily 11:05 No provider procedures requiring assistance completed. IV discontinued, intact, ph bleeding controlled, No redness/swelling at site. Pressure dressing applied. Administered Medications: 07:37 Not Given (Given by EMS): Aspirin Chewable Tablet 324 mg PO once; 81 mg tablets x 4 ph 07:47 Drug: Zofran (Ondansetron) 4 mg Route: IVP; Site: right antecubital; ph 08:52 Follow up: Response: No adverse reaction jg9 11:06 Follow up: Response: No adverse reaction ph 07:49 Drug: NS 0.9% 1000 ml Route: IV; Rate: 125 ml/hr; Site: right antecubital; ph 11:06 Follow up: Response: No adverse reaction; IV Status: Completed infusion; IV Intake: ph 425ml 07:50 Drug: morphine 4 mg Route: IVP; Site: right antecubital; ph 08:52 Follow up: Response: No adverse reaction; Pain is decreased jg9 11:06 Follow up: Response: No adverse reaction ph 09:04 Drug: Potassium Effervescent Tablet 50 mEq Route: PO; ph 11:06 Follow up: Response: No adverse reaction ph 09:13 Drug: Norvasc (amlodipine) 10 mg Route: PO; ph 11:06 Follow up: Response: No adverse reaction ph Intake: 11:06 IV: 425ml; Total: 425ml. ph Outcome: 10:57 Discharge ordered by . mily 11:05 Discharged to home ambulatory. ph 11:05 Condition: good 11:05 Discharge instructions given to patient, Instructed on discharge instructions, follow up and referral plans. medication usage, Demonstrated understanding of instructions, follow-up care, medications, Prescriptions given X 3. 11:07 Patient left the ED. ph Signatures: Dispatcher [employer] EDMS Fabián Seth MD MD cha Calderon, Audri, RN RN aa5 Grace Talavera, RN RN ph Kristy Bonilla RN RN jg9
--- NOTE | 2021-11-19 10:59 | EDPHYS ---
Physician Documentation [facility] Name: Evita Tomlin Age: 36 yrs Sex: Female : 1985 Arrival Date: 11/19/2021 Time: 07:28 Bed 8 Private MD: ED Physician Fabián Seth HPI: 11/19 09:09 This 36 yrs old Black Female presents to ER via EMS with complaints of chest pain and mily sob. 09:09 The patient has shortness of breath at rest. Onset: The symptoms/episode began/occurred mily just prior to arrival. Duration: The symptoms are intermittent, with no pattern. The patient's shortness of breath has no apparent modifying factors. The patient or guardian reports chest pain that is located primarily in the anterior chest wall, bilaterally. The patient presents with a history of heart skipping beats. Context: The symptoms occur at rest. Duration: The patient or guardian reports multiple episodes, that are intermittent. Modifying factors: The symptoms are aggravated by anxiety, The symptoms are alleviated by nothing. The pain does not radiate. 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 - Social history:: Smoking status: Patient reports the use of cigarette tobacco products, smokes one pack cigarettes per day. - Family history:: not pertinent. ROS: 09:15 Constitutional: Negative for fever, chills, and weight loss, Eyes: Negative for injury, mily pain, redness, and discharge, ENT: Negative for injury, pain, and discharge, Neck: Negative for injury, pain, and swelling, Abdomen/GI: Negative for abdominal pain, nausea, vomiting, diarrhea, and constipation, Back: Negative for injury and pain, : Negative for injury, bleeding, discharge, and swelling, MS/Extremity: Negative for injury and deformity, Skin: Negative for injury, rash, and discoloration, Neuro: Negative for headache, weakness, numbness, tingling, and seizure, Psych: Negative for depression, anxiety, suicide ideation, homicidal ideation, and hallucinations, Allergy/Immunology: Negative for hives, rash, and allergies, Endocrine: Negative for neck swelling, polydipsia, polyuria, polyphagia, and marked weight changes, Hematologic/Lymphatic: Negative for swollen nodes, abnormal bleeding, and unusual bruising. 09:15 Cardiovascular: Positive for chest pain, with cough. 09:15 Respiratory: Positive for cough, with no reported sputum. Exam: 09:16 Constitutional: This is a well developed, well nourished patient who is awake, alert, mily and in no acute distress. Head/Face: Normocephalic, atraumatic. Eyes: Pupils equal round and reactive to light, extra-ocular motions intact. Lids and lashes normal. Conjunctiva and sclera are non-icteric and not injected. Cornea within normal limits. Periorbital areas with no swelling, redness, or edema. ENT: Nares patent. No nasal discharge, no septal abnormalities noted. Tympanic membranes are normal and external auditory canals are clear. Oropharynx with no redness, swelling, or masses, exudates, or evidence of obstruction, uvula midline. Mucous membranes moist. Neck: Trachea midline, no thyromegaly or masses palpated, and no cervical lymphadenopathy. Supple, full range of motion without nuchal rigidity, or vertebral point tenderness. No Meningismus. Chest/axilla: Normal chest wall appearance and motion. Nontender with no deformity. No lesions are appreciated. Cardiovascular: Regular rate and rhythm with a normal S1 and S2. No gallops, murmurs, or rubs. Normal PMI, no JVD. No pulse deficits. Respiratory: Lungs have equal breath sounds bilaterally, clear to auscultation and percussion. No rales, rhonchi or wheezes noted. No increased work of breathing, no retractions or nasal flaring. Abdomen/GI: Soft, non-tender, with normal bowel sounds. No distension or tympany. No guarding or rebound. No evidence of tenderness throughout. Back: No spinal tenderness. No costovertebral tenderness. Full range of motion. Skin: Warm, dry with normal turgor. Normal color with no rashes, no lesions, and no evidence of cellulitis. MS/ Extremity: Pulses equal, no cyanosis. Neurovascular intact. Full, normal range of motion. Neuro: Awake and alert, GCS 15, oriented to person, place, time, and situation. Cranial nerves II-XII grossly intact. Motor strength 5/5 in all extremities. Sensory grossly intact. Cerebellar exam normal. Normal gait. Psych: Awake, alert, with orientation to person, place and time. Behavior, mood, and affect are within normal limits. 09:16 Musculoskeletal/extremity: DVT Exam: No signs of deep vein thrombosis. no pain, no swelling, no tenderness, negative Homans' sign noted on exam, no appreciated bluish discoloration, no erythema, no increased warmth. 09:21 ECG was reviewed by the Attending Physician. mily Vital Signs: 07:30 BP 159 / 103; Pulse 81; Resp 18; Temp 97.4; Pulse Ox 100% on R/A; Weight 56.7 kg; ph Height 4 ft. 11 in. (149.86 cm); 08:39 BP 148 / 108; Pulse 88; Resp 18; Pulse Ox 99% on R/A; ph 10:00 BP 142 / 99; Pulse 91; Resp 16; Pulse Ox 98% on R/A; ph 11:04 BP 137 / 101; Pulse 89; Resp 16; Temp 97.2; Pulse Ox 99% on R/A; ph 07:30 Body Mass Index 25.25 (56.70 kg, 149.86 cm) ph MDM: 07:29 Patient medically screened. mily 09:16 Differential diagnosis: Anemia Anxiety Reaction asthma, abnormal EKG, acute myocardial mily infarction, acute pericarditis, Cholelithiasis costochondritis, arrythmia, dehydration, esophagitis, gastritis, gastroesophageal reflux disease (GERD), pancreatitis, pleurisy, pneumonia, pulmonary embolus, pneumonia, Pneumothorax. Antibiotic administration: Not indicated, the patient does not have an appreciated infiltrate. HEART Score: History: Slightly Suspicious (0), ECG: Normal (0), Age: < or = 45 years (0), Risk Factors: 1 or 2 risk factors (1), [Hypertension] [+ Family HX] Troponin: < or = 1 x Normal Limit (0). The patient's Wells Deep Vein Thrombosis Score was calculated as follows: Total Score: 0. This patient was found to be at low risk for a deep vein thrombosis by using the Well's assessment criteria Total Score: 0-2 Pts- Low Risk. The patient's pulmonary embolism risk score was calculated as follows: Total Score: 0-2 points. This patient was found to be at low risk for a pulmonary embolism by using the Well's assessment criteria Total Score: 0-2 points. This patient was found to be at low risk for a pulmonary embolism by using the Well's assessment criteria. CHRISTINE Risk Score: TOTAL SCORE = 0. Immunization status:. Data reviewed: vital signs, nurses notes, EMS record, lab test result(s), EKG, radiologic studies, plain films. Data interpreted: telemetry monitor: rate is 88 beats/min, rhythm is atrial flutter, Pulse oximetry: on room air. Test interpretation: by ED physician or midlevel provider: ECG, plain radiologic studies. Counseling: I had a detailed discussion with the patient and/or guardian regarding: the historical points, exam findings, and any diagnostic results supporting the discharge/admit diagnosis, lab results, radiology results, the need for outpatient follow up, for definitive care, 10:19 Refusal of service: The patient/guardian displays adequate decision making capability [facility] and despite a detailed discussion of alternatives, benefits, risks, and consequences refuses: CT Scan, venous doppler, will allow second trop, will have patient follow up with pcp, rter is symptoms increase or persist. 10:22 ED course: pt alert and oriented x 4 , not homicidal and not suicidal. [facility] 11/19 07:37 Order name: Basic Metabolic Panel; Complete Time: 08:36 [facility] 11/19 07:37 Order name: CBC with Diff; Complete Time: 08:36 [facility] 11/19 07:37 Order name: LFT's; Complete Time: 08:36 [facility] 11/19 07:37 Order name: Magnesium; Complete Time: 08:36 [facility] 11/19 07:37 Order name: NT PRO-BNP; Complete Time: 08:36 [facility] 11/19 07:37 Order name: PT-INR; Complete Time: 08:36 [facility] 11/19 07:37 Order name: Troponin HS; Complete Time: 08:36 [facility] 11/19 07:37 Order name: XRAY Chest (1 view); Complete Time: 11:00 [facility] 11/19 07:37 Order name: SARS-COV-2 RT PCR (Document "Date of Onset" if Symptomatic); Complete Time: [facility] 08:57 11/19 07:44 Order name: D-Dimer; Complete Time: 11:00 [facility] 11/19 09:07 Order name: UDS [facility] 11/19 09:28 Order name: Troponin High Sensitivity: [address] [facility] 11/19 09:29 Order name: Troponin High Sensitivity; Complete Time: 11:00 EDMS 11/19 07:37 Order name: EKG; Complete Time: 07:37 [facility] 11/19 07:37 Order name: Cardiac monitoring; Complete Time: 07:37 [facility] 11/19 07:37 Order name: EKG - Nurse/Tech; Complete Time: 07:37 [facility] 11/19 07:37 Order name: IV Saline Lock; Complete Time: 07:37 [facility] 11/19 07:37 Order name: Labs collected and sent; Complete Time: 07:49 [facility] 11/19 07:37 Order name: O2 Per Protocol; Complete Time: 07:37 [facility] 11/19 07:37 Order name: O2 Sat Monitoring; Complete Time: 07:37 [facility] EC:21 Rate is 76 beats/min. Rhythm is regular. QRS [place] is Normal. [place] interval is normal. QRS mily interval is normal. QT interval is normal. No Q waves. T waves are Normal. No ST changes noted. Clinical impression: Normal ECG and No evidence of ischemia. Interpreted by me. Reviewed by me. Administered Medications: 07:37 Not Given (Given by EMS): Aspirin Chewable Tablet 324 mg PO once; 81 mg tablets x 4 ph 07:47 Drug: Zofran (Ondansetron) 4 mg Route: IVP; Site: right antecubital; ph 08:52 Follow up: Response: No adverse reaction jg9 11:06 Follow up: Response: No adverse reaction ph 07:49 Drug: NS 0.9% 1000 ml Route: IV; Rate: 125 ml/hr; Site: right antecubital; ph 11:06 Follow up: Response: No adverse reaction; IV Status: Completed infusion; IV Intake: ph 425ml 07:50 Drug: morphine 4 mg Route: IVP; Site: right antecubital; ph 08:52 Follow up: Response: No adverse reaction; Pain is decreased jg9 11:06 Follow up: Response: No adverse reaction ph 09:04 Drug: Potassium Effervescent Tablet 50 mEq Route: PO; ph 11:06 Follow up: Response: No adverse reaction ph 09:13 Drug: Norvasc (amlodipine) 10 mg Route: PO; ph 11:06 Follow up: Response: No adverse reaction ph Disposition Summary: 03/12/22 10:57 Discharge Ordered Location: Home mily Problem: new mily Symptoms: have improved mily Condition: Stable mily Diagnosis - Anxiety disorder, unspecified mily - Chest pain, unspecified mily - Tobacco abuse counseling mily - Tobacco use mily - Essential (primary) hypertension mily Followup: mily - With: Private Physician - When: 1 - 2 days - Reason: Recheck today's complaints, Continuance of care, Re-evaluation by your physician Followup: mily - With: - When: 2 - 3 days - Reason: Recheck today's complaints, Re-evaluation by your physician Discharge Instructions: - Discharge Summary Sheet mily - Nonspecific Chest Pain, Adult mily - Steps to Quit Smoking mily - Nonspecific Chest Pain, Adult, [id number] mily - Hypertension, Adult mily - Hypertension, Adult, [id number] mily - Aspirin and Your Heart mily Forms: - Medication Reconciliation Form mily - Thank You Letter mily - Antibiotic Education mily - Prescription Opioid Use mily Prescriptions: - Hydroxyzine HCl 25 mg Oral Tablet - take 1 tablet by ORAL route every 6 hours As needed; 30 tablet; Refills: 0, mily Product Selection Permitted - Pepcid 20 mg Oral Tablet - take 1 tablet by ORAL route every 12 hours for 15 days; 30 tablet; Refills: 0, [facility] Product Selection Permitted - Norvasc 5 mg Oral Tablet - take 1 tablet by ORAL route once daily; 20 tablet; Refills: 0, Product [facility] Selection Permitted Signatures: Dispatcher [employer] Fabián Nuñez MD MD cha Hall, Patricia, RN RN Kristy Becker RN jg9
[2021-11-19 11:18] VITALS: BP 137/101; TEMP 97.2; O2SAT 99
--- NOTE | 2021-11-20 10:12 | EKG ---
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
== END 2021-11-19 11:07 | disposition home or self-care (01) ==
LOC: ER 07:24
DX: R07.9 Chest pain, unspecified (principal); F41.9 Anxiety disorder, unspecified; I10 Essential (primary) hypertension; Z71.6 Tobacco abuse counseling; Z72.0 Tobacco use; Z20.822 Contact with and (suspected) exposure to COVID-19
CPT/HCPCS: 96361; 93005; 85025; 80048; 36415; 83735; 85610; 85379; 80076; 84484 ×2; 83880; 71045; 96375; 96374; 99285; U0003; J7030; J2405

== ENCOUNTER 2021-11-23 06:59 | Emergency (ER) | payer OTHER ==
[2021-11-23] MEDS ORDERED: ASPIRIN 81 MG CHEWABLE TABLET ONE (07:13)
[2021-11-23 07:45] LABS: Hematocrit 35.4 % (36.0-45.0)
[2021-11-23 07:46] LABS: Absolute Lymphocytes (CBC) 1.6 K/uL (0.7-4.9); Lymphocytes % 21.9 % (15.3-44.8); MPV 10.6 fL (7.6-11.3)
[2021-11-23 08:22] LABS: ALT/SGPT 30 U/L (12-78); Alkaline Phosphatase 58 U/L (45-117); BUN Blood Urea Nitrogen 13 mg/dL (7-18); Bicarbonate 27 mmol/L (21-32); Bilirubin Total 0.3 mg/dL (0.2-1.0); Glucose Level 68 mg/dL (74-106); Protein, Total 8.3 g/dL (6.4-8.2); Sodium Level 139 mmol/L (136-145)
[2021-11-23 08:23] LABS: AST/SGOT 23 U/L (15-37); Bilirubin Direct < 0.1 mg/dL (0-0.2); Potassium 3.4 mmol/L (3.5-5.1); Troponin High Sensitivity < 3.00 pg/mL (<58.9)
--- NOTE | 2021-11-23 08:25 | RAD REPORT ---
EXAM DESCRIPTION: RAD - Chest Single View - 11/23/2021 7:33 am CLINICAL HISTORY: CHEST PAIN Chest pain. COMPARISON: Chest Single View dated 11/19/2021; Chest Single View dated 04/13/2020; Chest Single View d ated 04/08/2018 FINDINGS: Portable technique limits examination quality. The lungs are grossly clear. The heart is normal in size. No displaced fractures. IMPRESSION: No acute intrathoracic process suspected.
--- NOTE | 2021-11-23 08:35 | EDPHYS ---
Physician Documentation [facility] Name: Evita Tomlin Age: 36 yrs Sex: Female : 1985 Arrival Date: 11/23/2021 Time: 07:01 Bed 6 Private MD: ED Physician Hunter Medrano HPI: 11/23 07:05 This 36 yrs old Black Female presents to ER via Unassigned with complaints of Shortness ms3 Of Breath. 07:05 The patient has shortness of breath at rest. Onset: The symptoms/episode began/occurred ms3 1 hour(s) ago. The patient's shortness of breath has no apparent modifying factors. Associated signs and symptoms: The patient has no apparent associated signs or symptoms. 36-year-old female with past medical history of hypertension presents via [facility] or shortness of breath and chest pain that began 1 hour prior to arrival. Patient states her discomfort is a 10/10 and described as uncomfortable. Patient denies alleviating or inciting factors. Patient denies nausea, vomiting, diaphoresis, lightheadedness.. 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 - Social history:: Smoking status: Patient reports the use of cigarette tobacco products, smokes one pack cigarettes per day. ROS: 07:05 Constitutional: Negative for fever, and chills. Eyes: Negative for injury, pain, ms3 redness, and discharge, Neck: Negative for injury, pain, and swelling, Cardiovascular: Negative for chest pain, and palpitations. Abdomen/GI: Negative for abdominal pain, nausea, vomiting, diarrhea, and constipation, Back: Negative for injury and pain, MS/Extremity: Negative for injury and deformity, Skin: Negative for injury, rash, and discoloration. 07:05 Cardiovascular: Positive for chest pain. 07:05 Respiratory: Positive for shortness of breath. 07:05 All other systems are negative. Exam: 06:15 ECG was reviewed by the Attending Physician. ms3 07:05 Constitutional: This is a well developed, well nourished patient who is awake, alert, ms3 and in no acute distress. Head/Face: Normocephalic, atraumatic. Eyes: Pupils equal round and reactive to light, extra-ocular motions intact. Lids and lashes normal. Conjunctiva and sclera are non-icteric and not injected. Periorbital areas with no swelling, redness, or edema. Neck: Trachea midline, no cervical lymphadenopathy. Supple, full range of motion without nuchal rigidity, or vertebral point tenderness. No Meningismus. Chest/axilla: Normal chest wall appearance and motion. Nontender with no deformity. Cardiovascular: Regular rate and rhythm with a normal S1 and S2. No gallops, murmurs, or rubs. Normal PMI, no JVD. No pulse deficits. Respiratory: Lungs have equal breath sounds bilaterally, clear to auscultation and percussion. No rales, rhonchi or wheezes noted. No increased work of breathing, no retractions or nasal flaring. Abdomen/GI: Soft, non-tender, with normal bowel sounds. No distension or tympany. No guarding or rebound. No evidence of tenderness throughout. Neuro: Awake and alert, GCS 15, oriented to person, place, time, and situation. Cranial nerves II-XII grossly intact. Motor strength 5/5 in all extremities. Sensory grossly intact. Cerebellar exam normal. Normal gait. Psych: Awake, alert, with orientation to person, place and time. Behavior, mood, and affect are within normal limits. Vital Signs: 07:08 BP 133 / 91; Pulse 84; Resp 17; Pulse Ox 100% on R/A; tw2 07:08 Weight 56.7 kg; Height 4 ft. 11 in. (149.86 cm); ke1 07:10 Temp 97.9(TE); tw2 08:32 BP 121 / 82; Pulse 87; Pulse Ox 100% on R/A; ap3 07:08 Body Mass Index 25.25 (56.70 kg, 149.86 cm) ke1 MDM: 07:03 Patient medically screened. ms3 07:38 Data interpreted: hall monitor: rate is 72 beats/min, rhythm is normal sinus rhythm. ms3 08:35 Differential diagnosis: Anemia Myocardial Infarction pneumonia, pulmonary edema, ms3 Pulmonary Embolism. Data reviewed: vital signs, nurses notes, lab test result(s), EKG, radiologic studies. Test interpretation: by ED physician or midlevel provider: ECG. Counseling: I had a detailed discussion with the patient and/or guardian regarding: the historical points, exam findings, and any diagnostic results supporting the discharge/admit diagnosis, lab results, radiology results, the need for outpatient follow up, to return to the emergency department if symptoms worsen or persist or if there are any questions or concerns that arise at home. ED course: Discussed labs, chest x-ray, physical exam findings with patient. Patient to follow-up with primary care physician in 1 to 2 days. Patient understands and agrees with plan. All questions were answered. Return precautions discussed include worsening symptoms, or any other concerns. On reevaluation patient is alert and oriented x4, in no apparent distress, nontoxic-appearing, speaking full sentences, ambulatory in emergency department.. 11/23 07:05 Order name: Basic Metabolic Panel; Complete Time: 08:29 ms3 11/23 07:05 Order name: CBC with Diff; Complete Time: 07:51 ms3 11/23 07:05 Order name: LFT's; Complete Time: 08:29 ms3 11/23 07:05 Order name: Troponin HS; Complete Time: 08:29 ms3 11/23 07:24 Order name: D-Dimer ms3 11/23 07:25 Order name: D-Dimer; Complete Time: 08:22 EDMS 11/23 07:05 Order name: XRAY Chest (1 view); Complete Time: 08:29 ms3 11/23 07:05 Order name: EKG; Complete Time: 07:05 ms3 11/23 07:05 Order name: Cardiac monitoring; Complete Time: 07:08 ms3 11/23 07:05 Order name: EKG - Nurse/Tech; Complete Time: 07:23 ms3 11/23 07:05 Order name: IV Saline Lock; Complete Time: 07:08 ms3 11/23 07:05 Order name: Labs collected and sent; Complete Time: 07:12 ms3 11/23 07:05 Order name: O2 Per Protocol; Complete Time: 07:08 ms3 11/23 07:05 Order name: O2 Sat Monitoring; Complete Time: 07:08 ms3 EC:15 Rate is 80 beats/min. Rhythm is regular. QRS [place] is Normal. Clinical impression: ms3 Normal ECG. Interpreted by me. Administered Medications: 07:12 Drug: Aspirin Chewable Tablet 324 mg Route: PO; ap3 08:40 Follow up: Response: No adverse reaction tw2 Disposition Summary: 11/23/21 08:34 Discharge Ordered Location: Home ms3 Problem: new ms3 Condition: Stable ms3 Diagnosis - Chest pain, unspecified ms3 - Shortness of breath ms3 - Anemia, unspecified ms3 Followup: ms3 - With: Jaspal Braga MD - When: 1 - 2 days - Reason: Discharge Instructions: - Discharge Summary Sheet ms3 - Anemia ms3 - Nonspecific Chest Pain, Adult ms3 - Shortness of Breath, Adult ms3 Forms: - Medication Reconciliation Form ms3 - Thank You Letter ms3 - Antibiotic Education ms3 - Prescription Opioid Use ms3 Signatures: Dispatcher [employer] Isi Bundy RN RN ap3 Hunter Medrano DO DO ms3 Tyson Drummond RN RN ke1 Evette Hurley RN tw2
--- NOTE | 2021-11-23 08:35 | ER ---
Nurse's Notes [facility] Name: Evita Tomlin Age: 36 yrs Sex: Female : 1985 Arrival Date: 11/23/2021 Time: 07:01 Bed 6 Private MD: Diagnosis: Chest pain, unspecified;Shortness of breath;Anemia, unspecified Presentation: 11/23 07:08 Chief complaint: EMS states: patient reports chest pain, SOB after she woke up this ke1 morning. Per EMS 145/99 92 18 100%. Coronavirus screen: Vaccine status:. Coronavirus screen: At this time, the client does not indicate any symptoms associated with coronavirus-19. Ebola Screen: No symptoms or risks identified at this time. Initial Sepsis Screen: Does the patient meet any 2 criteria? No. Patient's initial sepsis screen is negative. Does the patient have a suspected source of infection? No. Patient's initial sepsis screen is negative. Risk Assessment: Do you want to hurt yourself or someone else? Patient reports no desire to harm self or others. Onset of symptoms was November 23, 2021. 07:08 Method Of Arrival: EMS: [facility] ke1 07:08 Acuity: KVNG 3 ke1 CLINICAL APPEALS RN: 08:39 LMP N/A - tw2 Historical: - Allergies: 07:12 No Known Allergies; ke1 - PMHx: 07:12 Anxiety; Hypertension; nerve pain; ke1 - PSHx: 07:12 ectopic ; ke1 - Immunization history:: Adult Immunizations not immunized. - Social history:: Smoking status: Patient reports the use of cigarette tobacco products, smokes one pack cigarettes per day. Screenin:07 Abuse screen: Denies threats or abuse. Nutritional screening: No deficits noted. tw2 Tuberculosis screening: No symptoms or risk factors identified. Fall Risk None identified. Assessment: 07:14 General: Appears in no apparent distress. comfortable, Behavior is appropriate for age. ap3 Pain: Complains of pain in chest. Neuro: Level of Consciousness is awake, alert, obeys commands, Oriented to person, place, time, situation. Cardiovascular: Rhythm is regular. Respiratory: Airway is patent Respiratory effort is even, unlabored, Respiratory pattern is regular, symmetrical. 08:31 Reassessment: Patient and/or family updated on plan of care and expected duration. Pain ap3 level reassessed. Patient is alert, oriented x 3, equal unlabored respirations, skin warm/dry/pink. 08:45 Reassessment: Patient appears in no apparent distress at this time. Patient and/or tw2 family updated on plan of care and expected duration. Pain level reassessed. Patient is alert, oriented x 3, equal unlabored respirations, skin warm/dry/pink. Vital Signs: 07:08 BP 133 / 91; Pulse 84; Resp 17; Pulse Ox 100% on R/A; tw2 07:08 Weight 56.7 kg; Height 4 ft. 11 in. (149.86 cm); ke1 07:10 Temp 97.9(TE); tw2 08:32 BP 121 / 82; Pulse 87; Pulse Ox 100% on R/A; ap3 07:08 Body Mass Index 25.25 (56.70 kg, 149.86 cm) ke1 ED Course: 07:01 Patient arrived in ED. wm 07:03 Hunter Medrano DO is Attending Physician. ms3 07:07 Evette Hurley, JAILENE is Primary Nurse. tw2 07:07 Bed in low position. Call light in reach. discharge rn on. Pulse ox on. NIBP on. tw2 07:08 Inserted saline lock: 20 gauge in right antecubital area, using aseptic technique. tw2 ,using aseptic technique. JAILENE Mehta Blood collected. 07:12 Triage completed. ke1 07:17 Arm band placed on right wrist. EKG completed in triage. Results shown to MD. ap3 07:31 Initial lab(s) drawn, by id, sent to lab. ap3 07:34 XRAY Chest (1 view) In Process Unspecified. EDMS 08:24 D-Dimer Sent. aa5 08:34 Jaspal Braga MD is Referral Physician. ms3 08:44 No provider procedures requiring assistance completed. IV discontinued, intact, tw2 bleeding controlled, No redness/swelling at site. Pressure dressing applied. Administered Medications: 07:12 Drug: Aspirin Chewable Tablet 324 mg Route: PO; ap3 08:40 Follow up: Response: No adverse reaction tw2 Outcome: 08:34 Discharge ordered by . ms3 08:44 Discharged to home ambulatory. tw2 08:44 Condition: stable 08:44 Discharge instructions given to patient, Instructed on discharge instructions, follow up and referral plans. Demonstrated understanding of instructions, follow-up care. 08:49 Patient left the ED. ap3 Signatures: Dispatcher [employer] EDAnn Villegas, RN RN aa5 Evette Hurley RN RN tw2 Isi Khan RN RN ap3 Hunter Medrano DO DO ms3 Carmen Cole Kouassi, RN RN ke1
[2021-11-23 09:14] VITALS: O2SAT 100
[2021-11-23 09:15] VITALS: TEMP 97.9
[2021-11-23 09:16] VITALS: BP 121/82
--- NOTE | 2021-11-28 08:38 | EKG ---
Test Date: 2021-11-23 Test Time: 06:15:46 Housing Quality Standard Inspector: GARRETT MEASUREMENT RESULTS: Intervals: Rate: 80 DE: 142 QRSD: 84 QT: 384 QTc: 442 [place]: P: 61 DE: 142 QRS: 42 T: 54 INTERPRETIVE STATEMENTS: Normal sinus rhythm Normal ECG Compared to ECG 11/19/2021 07:39:22 No significant changes Electronically Signed On 11-28-21 08:25:13 CDT by Gregg Chinchilla
== END 2021-11-23 08:49 | disposition home or self-care (01) ==
LOC: ER 06:59
DX: R06.02 Shortness of breath (principal); R07.9 Chest pain, unspecified; I10 Essential (primary) hypertension; F41.9 Anxiety disorder, unspecified; D64.9 Anemia, unspecified; F17.210 Nicotine dependence, cigarettes, uncomplicated
CPT/HCPCS: 36415; 71045; 80048; 80076; 84484; 85025; 85379; 93005; 99284

== ENCOUNTER 2022-05-14 20:00 | Emergency (ER) | payer OTHER ==
--- NOTE | 2022-05-14 20:36 | EDPHYS ---
Physician Documentation [facility] Name: Evita Tomlin Age: 36 yrs Sex: Female : 1985 Arrival Date: 05/14/2022 Time: 20:07 Bed 10 Private MD: RUTH ANN Physician Fabián Seth HPI: 05/14 20:20 This 36 yrs old Black Female presents to ER via EMS with complaints of left era pain, mily possible ingrown hair. 20:20 The patient presents with pain, tenderness. The complaints affect the left ear. Onset: mily The symptoms/episode began/occurred 2 day(s) ago. Modifying factors: The symptoms are alleviated by nothing, covering ear. Associated signs and symptoms: The patient has no apparent associated signs or symptoms. Severity of symptoms: At their worst the symptoms were mild moderate in the emergency department the symptoms are unchanged. The patient has not experienced similar symptoms in the past. 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 - Social history:: Smoking status: Patient denies any tobacco usage or history of. - Family history:: not pertinent. ROS: 20:20 Constitutional: Negative for fever, chills, and weight loss, Eyes: Negative for injury, mily pain, redness, and discharge, Neck: Negative for injury, pain, and swelling, Cardiovascular: Negative for chest pain, palpitations, and edema, Respiratory: Negative for shortness of breath, cough, wheezing, and pleuritic chest pain, Abdomen/GI: Negative for abdominal pain, nausea, vomiting, diarrhea, and constipation, Back: Negative for injury and pain, : Negative for injury, bleeding, discharge, and swelling, MS/Extremity: Negative for injury and deformity, Skin: Negative for injury, rash, and discoloration, Neuro: Negative for headache, weakness, numbness, tingling, and seizure, Psych: Negative for depression, anxiety, suicide ideation, homicidal ideation, and hallucinations, Allergy/Immunology: Negative for hives, rash, and allergies, Endocrine: Negative for neck swelling, polydipsia, polyuria, polyphagia, and marked weight changes, Hematologic/Lymphatic: Negative for swollen nodes, abnormal bleeding, and unusual bruising. 20:20 ENT: Positive for of the left ear. Exam: 20:20 Constitutional: This is a well developed, well nourished patient who is awake, alert, mily and in no acute distress. Head/Face: Normocephalic, atraumatic. Eyes: Pupils equal round and reactive to light, extra-ocular motions intact. Lids and lashes normal. Conjunctiva and sclera are non-icteric and not injected. Cornea within normal limits. Periorbital areas with no swelling, redness, or edema. Neck: Trachea midline, no thyromegaly or masses palpated, and no cervical lymphadenopathy. Supple, full range of motion without nuchal rigidity, or vertebral point tenderness. No Meningismus. Chest/axilla: Normal chest wall appearance and motion. Nontender with no deformity. No lesions are appreciated. Cardiovascular: Regular rate and rhythm with a normal S1 and S2. No gallops, murmurs, or rubs. Normal PMI, no JVD. No pulse deficits. Respiratory: Lungs have equal breath sounds bilaterally, clear to auscultation and percussion. No rales, rhonchi or wheezes noted. No increased work of breathing, no retractions or nasal flaring. Abdomen/GI: Soft, non-tender, with normal bowel sounds. No distension or tympany. No guarding or rebound. No evidence of tenderness throughout. Back: No spinal tenderness. No costovertebral tenderness. Full range of motion. Skin: Warm, dry with normal turgor. Normal color with no rashes, no lesions, and no evidence of cellulitis. MS/ Extremity: Pulses equal, no cyanosis. Neurovascular intact. Full, normal range of motion. Neuro: Awake and alert, GCS 15, oriented to person, place, time, and situation. Cranial nerves II-XII grossly intact. Motor strength 5/5 in all extremities. Sensory grossly intact. Cerebellar exam normal. Normal gait. Psych: Awake, alert, with orientation to person, place and time. Behavior, mood, and affect are within normal limits. 20:20 ENT: Ear canal(s): swelling, that is minimal, of the left canal, TM's: are normal. Vital Signs: 20:07 BP 158 / 94; Pulse 76; Resp 16; Temp 98(O); Pulse Ox 99% on R/A; Pain 10/10; kl MDM: 20:11 Patient medically screened. mily 20:29 Differential diagnosis: otitis media, otitis externa, ruptured TM, cerumen impaction. mily Data reviewed: vital signs, nurses notes. Data interpreted: night monitor: not applicable for this patient encounter. rate is 76 beats/min, Pulse oximetry: on is 99 %. Test interpretation: by ED physician or midlevel provider:. Administered Medications: 20:34 CANCELLED (Duplicate Order): Vigamox (moxifloxacin) Drops 0.5 % 4 drops Ophthalmic mily once; to left ear pain 20:48 Drug: Bactrim (trimethoprim-sulfamethoxazole) (160 mg-800 mg (DS) 1 tablet Route: PO; kl 20:48 Drug: Motrin (ibuprofen) 600 mg Route: PO; kl Disposition Summary: 05/14/22 20:35 Discharge Ordered Location: Home mily Problem: new mily Symptoms: have improved mily Condition: Fair mily Diagnosis - Other otitis externa, left ear mily Followup: mily - With: Private Physician - When: 2 - 3 days - Reason: Recheck today's complaints, Continuance of care, Re-evaluation by your physician Followup: mily - With: Lena Christianson MD - When: 2 - 3 days - Reason: Recheck today's complaints, Re-evaluation by your physician Discharge Instructions: - Discharge Summary Sheet mily - Ear Drops, Adult mily - Otitis Externa mily - Otitis Externa, [id number] mily - Ear Drops, Adult, [id number] [facility] Forms: - Medication Reconciliation Form [facility] - Thank You Letter [facility] - Antibiotic Education mily - Prescription Opioid Use [facility] Prescriptions: - Cortisporin-TC 3.3-3-10-0.5 mg/mL Otic Suspension - instill 4 drops by OTIC route every 6 hours; 1 bottle; Refills: 0, Product mily Selection Permitted - Ibuprofen 600 mg Oral Tablet - take 1 tablet by ORAL route every 6 hours As needed take with food; 20 tablet; mily Refills: 0, Product Selection Permitted - Bactrim DS 800-160 mg Oral Tablet - take 1 tablet by ORAL route every 12 hours for 10 days; 20 tablet; Refills: 0, mily Product Selection Permitted Signatures: Stephani Palomares RN RN kl Anderson, Corey, MD MD cha Corrections: (The following items were deleted from the chart) 20:34 20:34 Vigamox (moxifloxacin) Drops 0.5 % 4 drops Ophthalmic once; to left ear pain mily ordered. mily
--- NOTE | 2022-05-14 20:36 | ER ---
Nurse's Notes [facility] Name: Evita Tomlin Age: 36 yrs Sex: Female : 1985 Arrival Date: 05/14/2022 Time: 20:07 Bed 10 Private MD: Diagnosis: Other otitis externa, left ear Presentation: 05/14 20:07 Chief complaint: Patient states: left ear pain began a few days ago worse today. Coronavirus screen: Vaccine status: Patient reports being unvaccinated. Ebola Screen: Patient negative for fever greater than or equal to 101.5 degrees Fahrenheit, and additional compatible Ebola Virus Disease symptoms. Initial Sepsis Screen: Does the patient meet any 2 criteria? No. Patient's initial sepsis screen is negative. Does the patient have a suspected source of infection? No. Patient's initial sepsis screen is negative. Risk Assessment: Do you want to hurt yourself or someone else? Patient reports no desire to harm self or others. Onset of symptoms was May 11, 2022. 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 - Social history:: Smoking status: Patient denies any tobacco usage or history of. - Family history:: not pertinent. Screenin:10 Abuse screen: Denies threats or abuse. Nutritional screening: No deficits noted. Tuberculosis screening: No symptoms or risk factors identified. 20:50 Fall Risk None identified. Assessment: 20:09 General: Appears distressed, uncomfortable, Behavior is calm, cooperative. Pain: Complains of pain in left ear Pain currently is 10 out of 10 on a pain scale. Neuro: No deficits noted. Level of Consciousness is awake, alert, obeys commands, Oriented to person, place, time, situation. Cardiovascular: No deficits noted. Respiratory: No deficits noted. Airway is patent Respiratory effort is even, unlabored, Respiratory pattern is regular. GI: No deficits noted. No signs and/or symptoms were reported involving the gastrointestinal system. : No deficits noted. No signs and/or symptoms were reported regarding the genitourinary system. EENT: Reports pain. Derm: No deficits noted. No signs and/or symptoms reported regarding the dermatologic system. Vital Signs: 20:07 BP 158 / 94; Pulse 76; Resp 16; Temp 98(O); Pulse Ox 99% on R/A; Pain 10/10; ED Course: 20:07 Patient arrived in ED. kl 20:09 Triage completed. kl 20:11 Fabián Seth MD is Attending Physician. mily 20:30 No apparent distress. Resting quietly. kl 20:35 Lena Christianson MD is Referral Physician. [facility] 20:50 No provider procedures requiring assistance completed. Patient did not have IV access kl during this emergency room visit. 20:50 Arm band placed on right wrist. kl 20:51 Patient has correct armband on for positive identification. kl Administered Medications: 20:34 CANCELLED (Duplicate Order): Vigamox (moxifloxacin) Drops 0.5 % 4 drops Ophthalmic mily once; to left ear pain 20:48 Drug: Bactrim (trimethoprim-sulfamethoxazole) (160 mg-800 mg (DS) 1 tablet Route: PO; kl 20:48 Drug: Motrin (ibuprofen) 600 mg Route: PO; Medication: 20:10 VIS not applicable for this client. Outcome: 20:35 Discharge ordered by . mily 20:50 Discharged to home ambulatory. kl 20:50 Condition: good 20:50 Discharge instructions given to patient, Instructed on discharge instructions, follow up and referral plans. medication usage, Demonstrated understanding of instructions, follow-up care, medications. 20:51 Patient left the ED. Signatures: Stephani Palomares, RN RN Fabián Mcdonnell MD MD mily
[2022-05-14] MEDS ORDERED: IBUPROFEN 200 MG TAB PO ONE (20:53)
[2022-05-14] MEDS ORDERED: SMZ./TMP. 800/160 MG TABLET ONE (20:54)
[2022-05-14] MEDS ORDERED: IBUPROFEN 400 MG TAB ONE (20:54)
[2022-05-14 21:14] VITALS: BP 158/94; TEMP 98; O2SAT 99
== END 2022-05-14 20:51 | disposition home or self-care (01) ==
LOC: ER 20:00
DX: H60.8X2 Other otitis externa, left ear (principal); I10 Essential (primary) hypertension
CPT/HCPCS: 99283

== ENCOUNTER 2022-05-14 23:34 | Emergency (ER) | payer OTHER ==
--- NOTE | 2022-05-15 01:25 | ER ---
Nurse's Notes [facility] Name: Evita Tomlin Age: 36 yrs Sex: Female : 1985 Arrival Date: 05/14/2022 Time: 23:36 Bed 10 Private MD: Diagnosis: Other otitis externa, left ear;Anxiety disorder, unspecified Presentation: 05/14 23:48 Chief complaint: Left ear pain and headache. Seen in ED for same c/o today, reports hb pain is worse. Coronavirus screen: At this time, the client does not indicate any symptoms associated with coronavirus-19. Ebola Screen: No symptoms or risks identified at this time. Risk Assessment: Do you want to hurt yourself or someone else? Patient reports no desire to harm self or others. Onset of symptoms was May 14, 2022. 23:48 Method Of Arrival: Ambulatory hb 23:48 Acuity: KVNG 4 hb 23:50 Initial Sepsis Screen: Does the patient meet any 2 criteria? No. Patient's initial hb sepsis screen is negative. Does the patient have a suspected source of infection? No. Patient's initial sepsis screen is negative. Triage Assessment: 23:49 General: Appears in no apparent distress. Behavior is calm, cooperative. Pain: Pain hb currently is 10 out of 10 on a pain scale. EENT: Reports severe left ear pain. Neuro: Level of Consciousness is awake, alert, obeys commands, Oriented to person, place, time, situation. Cardiovascular: Patient's skin is warm and dry. Respiratory: Respiratory effort is even, unlabored, Respiratory pattern is regular, symmetrical. 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 - Social history:: Smoking status: Patient denies any tobacco usage or history of. Screenin:49 Abuse screen: Denies threats or abuse. Denies injuries from another. Nutritional hb screening: No deficits noted. Tuberculosis screening: No symptoms or risk factors identified. Fall Risk None identified. Assessment: 23:49 General: SEE TRIAGE ASSESSMENT. hb Vital Signs: 23:48 BP 138 / 88; Pulse 84; Resp 16; Temp 98.4; Pulse Ox 100% on R/A; Pain 10/10; hb 05/15 01:38 BP 128 / 86; Pulse 72; Resp 16; Pulse Ox 99% on R/A; Pain 0/10; ED Course: 05/14 23:36 Patient arrived in ED. bp1 23:49 Triage completed. hb 23:49 Arm band placed on. hb 23:49 Patient has correct armband on for positive identification. hb 05/15 00:02 Fabián Seth MD is Attending Physician. mily 00:30 No apparent distress. Resting quietly. kl 00:56 CT Head Brain wo Cont In Process Unspecified. EDMS 01:23 Lena Christianson MD is Referral Physician. mily 01:23 Alberto Castro MD is Referral Physician. mily 01:39 No provider procedures requiring assistance completed. kl 01:39 Patient did not have IV access during this emergency room visit. kl Administered Medications: No medications were administered Medication: 05/14 23:49 VIS not applicable for this client. hb Outcome: 05/15 01:24 Discharge ordered by . mily 01:39 Discharged to home kl 01:39 Condition: stable 01:39 Discharge instructions given to patient, Instructed on discharge instructions, follow up and referral plans. medication usage, Demonstrated understanding of instructions, follow-up care, medications, Prescriptions given X 1. 01:40 Patient left the ED. Signatures: Dispatcher [employer] Stephani Mitchell RN RN kl Anderson, Corey, MD MD cha Baxter, Heather RN RN Sharona Rosales bp1
--- NOTE | 2022-05-15 01:25 | EDPHYS ---
Physician Documentation [facility] Name: Evita Tomlin Age: 36 yrs Sex: Female : 1985 Arrival Date: 05/14/2022 Time: 23:36 Bed 10 Private MD: ED Physician Fabián Seth HPI: 05/15 01:19 This 36 yrs old Black Female presents to ER via Ambulatory with complaints of Head pain.mily 01:19 This 36 yrs old Black Female presents to ER via Ambulatory with complaints of Head pain.mily 01:19 The patient presents with a contusion, pain. The complaints affect the left ear. Onset: mily The symptoms/episode began/occurred. Onset: The symptoms/episode began/occurred 2 day(s) ago. Modifying factors: The symptoms are alleviated by covering ear, the symptoms are aggravated by nothing. Associated signs and symptoms: The patient has no apparent associated signs or symptoms. Severity of symptoms: At their worst the symptoms were mild in the emergency department the symptoms are unchanged. Unable to obtain HPI due to. The patient has not experienced similar symptoms in the past. 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 - Social history:: Smoking status: Patient denies any tobacco usage or history of. ROS: 05/15 01:20 Constitutional: Negative for fever, chills, and weight loss, Eyes: Negative for injury, mily pain, redness, and discharge, Neck: Negative for injury, pain, and swelling, Cardiovascular: Negative for chest pain, palpitations, and edema, Respiratory: Negative for shortness of breath, cough, wheezing, and pleuritic chest pain, Abdomen/GI: Negative for abdominal pain, nausea, vomiting, diarrhea, and constipation, Back: Negative for injury and pain, : Negative for injury, bleeding, discharge, and swelling, MS/Extremity: Negative for injury and deformity, Skin: Negative for injury, rash, and discoloration, Neuro: Negative for headache, weakness, numbness, tingling, and seizure, Psych: Negative for depression, anxiety, suicide ideation, homicidal ideation, and hallucinations, Allergy/Immunology: Negative for hives, rash, and allergies, Endocrine: Negative for neck swelling, polydipsia, polyuria, polyphagia, and marked weight changes, Hematologic/Lymphatic: Negative for swollen nodes, abnormal bleeding, and unusual bruising. ENT: Positive for ear pain. Exam: 01:20 Constitutional: This is a well developed, well nourished patient who is awake, alert, mily and in no acute distress. Head/Face: Normocephalic, atraumatic. Eyes: Pupils equal round and reactive to light, extra-ocular motions intact. Lids and lashes normal. Conjunctiva and sclera are non-icteric and not injected. Cornea within normal limits. Periorbital areas with no swelling, redness, or edema. Neck: Trachea midline, no thyromegaly or masses palpated, and no cervical lymphadenopathy. Supple, full range of motion without nuchal rigidity, or vertebral point tenderness. No Meningismus. Chest/axilla: Normal chest wall appearance and motion. Nontender with no deformity. No lesions are appreciated. Cardiovascular: Regular rate and rhythm with a normal S1 and S2. No gallops, murmurs, or rubs. Normal PMI, no JVD. No pulse deficits. Respiratory: Lungs have equal breath sounds bilaterally, clear to auscultation and percussion. No rales, rhonchi or wheezes noted. No increased work of breathing, no retractions or nasal flaring. Abdomen/GI: Soft, non-tender, with normal bowel sounds. No distension or tympany. No guarding or rebound. No evidence of tenderness throughout. Back: No spinal tenderness. No costovertebral tenderness. Full range of motion. Female : Normal external genitalia. Skin: Warm, dry with normal turgor. Normal color with no rashes, no lesions, and no evidence of cellulitis. MS/ Extremity: Pulses equal, no cyanosis. Neurovascular intact. Full, normal range of motion. Neuro: Awake and alert, GCS 15, oriented to person, place, time, and situation. Cranial nerves II-XII grossly intact. Motor strength 5/5 in all extremities. Sensory grossly intact. Cerebellar exam normal. Normal gait. Psych: Awake, alert, with orientation to person, place and time. Behavior, mood, and affect are within normal limits. 01:20 ENT: External ear(s): erythema, Ear canal(s): erythema, that is minimal, of the left canal. Vital Signs: 05/14 23:48 BP 138 / 88; Pulse 84; Resp 16; Temp 98.4; Pulse Ox 100% on R/A; Pain 10/10; hb 05/15 01:38 BP 128 / 86; Pulse 72; Resp 16; Pulse Ox 99% on R/A; Pain 0/10; kl MDM: 00:02 Patient medically screened. mily 01:21 Differential diagnosis: otitis externa, ruptured TM, foreign body, acute otalgia, mily cerumen impaction, barotrauma . Data reviewed: vital signs, nurses notes, radiologic studies, CT scan. Data interpreted: security monitor: not applicable for this patient encounter. rate is 84 beats/min, rhythm is atrial fibrillation, Pulse oximetry: on room air is 100 %. Counseling: I had a detailed discussion with the patient and/or guardian regarding: the historical points, exam findings, and any diagnostic results supporting the discharge/admit diagnosis, radiology results, the need for outpatient follow up, for definitive care, an ENT specialist, a family practitioner, a psychiatrist. 05/15 00:04 Order name: CT Head Brain wo Cont mily Administered Medications: No medications were administered Disposition Summary: 05/15/22 01:24 Discharge Ordered Location: Home mily Problem: new mily Symptoms: have improved mily Condition: Stable mily Diagnosis - Other otitis externa, left ear mily - Anxiety disorder, unspecified mily Followup: mily - With: Private Physician - When: 2 - 3 days - Reason: Recheck today's complaints, Continuance of care, Re-evaluation by your physician Followup: mily - With: Lena Christianson MD - When: 2 - 3 days - Reason: Recheck today's complaints, Continuance of care, Re-evaluation by your physician Followup: mily - With: Alberto Castro MD - When: 2 - 3 days - Reason: Recheck today's complaints, Re-evaluation by your physician Discharge Instructions: - Discharge Summary Sheet mily - Ear Drops, Adult mily - Otitis Externa mily - Otitis Externa, [id number] mily - Supporting Someone With Anxiety mily Forms: - Medication Reconciliation Form mily - Thank You Letter mily - Antibiotic Education mily - Prescription Opioid Use mily Prescriptions: - Hydroxyzine HCl 25 mg Oral Tablet - take 1 tablet by ORAL route every 6 hours As needed; 30 tablet; Refills: 0, mily Product Selection Permitted Signatures: Dispatcher [employer] Fabián Nuñez MD MD cha Baxter, Heather, RN RN Corrections: (The following items were deleted from the chart) 00:18 00:04 Urine Dipstick-Ancillary ordered. mily robles 00:18 00:04 Urine Test ordered. mily robles
[2022-05-15 02:02] VITALS: TEMP 98.4
[2022-05-15 02:22] VITALS: BP 128/86; O2SAT 99
--- NOTE | 2022-05-15 15:17 | RAD REPORT ---
EXAM DESCRIPTION: CT - Head Brain Wo Cont - 05/15/2022 6:52 am CLINICAL HISTORY: The patient is 36 years old and is Female; Headache, new or worsening, neuro defic it TECHNIQUE: Axial computed tomography images of the head/brain without intravenous contrast. Sagitt al and coronal reformatted images were created and reviewed. This CT exam was performed using one o r more of the following dose reduction techniques: automated exposure control, adjustment of the mA and/or kV according to patient size, and/or use of iterative reconstruction technique. COMPARISON: 04/08/2018 CT head and cervical spine without contrast FINDINGS: BRAIN: Unremarkable. No hemorrhage. No significant white matter disease. No edema. VENTRICLES: Unremarkable. No ventriculomegaly. BONES/JOINTS: Unremarkable. No acute fracture. SOFT TISSUES: Unremarkable. SINUSES: Unremarkable as visualized. No acute sinusitis. MASTOID AIR CELLS: Unremarkable as visualized. No mastoid effusion. IMPRESSION: No acute intracranial abnormality. Electronically signed by: Ted Pretty MD 05/15/2022 1:17 AM CDT Due to temporary technical issues with the PACS/Fluency reporting system, reports are being signed by the in house radiologists without review as a courtesy to insure prompt reporting. The interpreting radiologist is fully responsible for the content of the report.
== END 2022-05-15 01:40 | disposition home or self-care (01) ==
LOC: ER 23:34
DX: H60.8X2 Other otitis externa, left ear (principal); F41.9 Anxiety disorder, unspecified; I10 Essential (primary) hypertension
CPT/HCPCS: 70450; 99283

== ENCOUNTER 2022-06-07 21:45 | Emergency (ER) | payer OTHER ==
[2012-01-06 13:30] VITALS: BP 118/73
[2022-06-07 22:28] LABS: Absolute Lymphocytes (CBC) 1.5 K/uL (0.7-4.9); Hematocrit 29.1 % (36.0-45.0); Lymphocytes % 31.9 % (15.3-44.8); MCV 74.6 fL (80-100)
[2022-06-07 22:43] LABS: Albumin 3.4 g/dL (3.4-5.0); Bilirubin Total 0.2 mg/dL (0.2-1.0); Potassium 3.6 mmol/L (3.5-5.1); Protein, Total 7.1 g/dL (6.4-8.2)
--- NOTE | 2022-06-08 00:05 | EDPHYS ---
Physician Documentation [facility] Name: Evita Tomlin Age: 36 yrs Sex: Female : 1985 Arrival Date: 06/07/2022 Time: 21:48 Bed 19 Private MD: ED Physician Flores Wagoner HPI: 06/07 22:11 This 36 yrs old Black Female presents to ER via EMS with complaints of weakness while sp3 on menses. 22:11 36-year-old female with history of hypertension and anxiety presents to the ED for sp3 generalized weakness and near syncope secondary to being on her menstrual cycle. She states her menses are regular but have gotten heavier over the last year or so. Denies any significant cramping, full syncope, chest pain, shortness of breath, fever, headache, bleeding or any other sites, or any other aspects of ROS at this time. She denies . She states that she came in to "get checked out" in case she lost too much blood.. 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 - Social history:: Smoking status: Patient reports the use of cigarette tobacco products. ROS: 22:12 Constitutional: Negative for fever, chills, and weight loss, Eyes: Negative for injury, sp3 pain, redness, and discharge, ENT: Negative for injury, pain, and discharge, Neck: Negative for injury, pain, and swelling, Respiratory: Negative for shortness of breath, cough, wheezing, and pleuritic chest pain, Abdomen/GI: Negative for abdominal pain, nausea, vomiting, diarrhea, and constipation, Back: Negative for injury and pain, MS/Extremity: Negative for injury and deformity, Skin: Negative for injury, rash, and discoloration, Neuro: Negative for headache, weakness, numbness, tingling, and seizure, Psych: Negative for depression, anxiety, suicide ideation, homicidal ideation, and hallucinations, Allergy/Immunology: Negative for hives, rash, and allergies, Endocrine: Negative for neck swelling, polydipsia, polyuria, polyphagia, and marked weight changes, Hematologic/Lymphatic: Negative for swollen nodes, abnormal bleeding, and unusual bruising. 22:12 All other systems are negative. Exam: 22:12 Constitutional: This is a well developed, well nourished patient who is awake, alert, sp3 and in no acute distress. Head/Face: Normocephalic, atraumatic. Neck: Trachea midline, no thyromegaly or masses palpated, and no cervical lymphadenopathy. Supple, full range of motion without nuchal rigidity, or vertebral point tenderness. No Meningismus. Chest/axilla: Normal chest wall appearance and motion. Nontender with no deformity. No lesions are appreciated. Cardiovascular: Regular rate and rhythm with a normal S1 and S2. No gallops, murmurs, or rubs. Normal PMI, no JVD. No pulse deficits. Respiratory: Lungs have equal breath sounds bilaterally, clear to auscultation and percussion. No rales, rhonchi or wheezes noted. No increased work of breathing, no retractions or nasal flaring. Abdomen/GI: Soft, non-tender, with normal bowel sounds. No distension or tympany. No guarding or rebound. No evidence of tenderness throughout. Back: No spinal tenderness. No costovertebral tenderness. Full range of motion. Skin: Warm, dry with normal turgor. Normal color with no rashes, no lesions, and no evidence of cellulitis. MS/ Extremity: Pulses equal, no cyanosis. Neurovascular intact. Full, normal range of motion. Neuro: Awake and alert, GCS 15, oriented to person, place, time, and situation. Cranial nerves II-XII grossly intact. Motor strength 5/5 in all extremities. Sensory grossly intact. Cerebellar exam normal. Normal gait. Psych: Awake, alert, with orientation to person, place and time. Behavior, mood, and affect are within normal limits. 22:13 : Patient has vaginal bleeding consistent with heavy menses.. sp3 Vital Signs: 21:49 BP 155 / 101; Pulse 78; Resp 16 S; Temp 98(O); Pulse Ox 99% on R/A; Weight 61.23 kg bb (R); Height 4 ft. 11 in. (149.86 cm) (R); Pain 0/10; 06/08 00:29 BP 148 / 90; Pulse 76; Resp 16; Pulse Ox 99% ; Pain 0/10; kl 06/07 21:49 Body Mass Index 27.27 (61.23 kg, 149.86 cm) bb MDM: 06/07 21:57 Patient medically screened. sp3 22:13 Data reviewed: vital signs, nurses notes. ED course: Patient is stable and we will sp3 assess hemoglobin and general labs. Patient is uncooperative with orthostatics but I do not believe she will have hypotension given her current blood pressure. Patient has odd affect but does not have any psychiatric emergencies including SI, HI, psychosis. 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 No further intervention necessary.. 06/08 00:02 ED course: Hgb 9.2; HCG is negative; Will d/c to PCP follow-up. . sp3 06/07 21:56 Order name: CBC with Diff; Complete Time: 23:08 sp3 06/07 21:56 Order name: CMP; Complete Time: 23:08 sp3 06/07 21:56 Order name: IV Saline Lock; Complete Time: 22:20 sp3 06/07 21:56 Order name: Labs collected and sent; Complete Time: 22:20 sp3 06/07 23:25 Order name: Test, Serum; Complete Time: 00:02 sp3 06/07 22:15 Order name: Urine Test (obtain specimen) sp3 Administered Medications: No medications were administered Disposition Summary: 06/08/22 00:04 Discharge Ordered Location: Home sp3 Condition: Stable sp3 Diagnosis - Abnormal uterine and vaginal bleeding, unspecified sp3 Followup: sp3 - With: Private Physician - When: Upon discharge from the Emergency Department - Reason: Continuance of care Discharge Instructions: - Discharge Summary Sheet sp3 - Abnormal Uterine Bleeding sp3 Forms: - Medication Reconciliation Form sp3 - Thank You Letter sp3 - Antibiotic Education sp3 - Prescription Opioid Use sp3 Signatures: Dispatcher [employer] Shahana Anderson RN RN bb Flores Wagoner MD MD sp3 Corrections: (The following items were deleted from the chart) 06/07 22:19 21:56 Orthostatics ordered. sp3 bb
--- NOTE | 2022-06-08 00:05 | ER ---
Nurse's Notes [facility] Name: Evita Tomlin Age: 36 yrs Sex: Female : 1985 Arrival Date: 06/07/2022 Time: 21:48 Bed 19 Private MD: Diagnosis: Abnormal uterine and vaginal bleeding, unspecified Presentation: 06/07 21:49 Chief complaint: EMS states: they were toned out for report of pt being light-headed x bb 1 hour with c/o heavy menstrual bleeding. Coronavirus screen: At this time, the client does not indicate any symptoms associated with coronavirus-19. Ebola Screen: No symptoms or risks identified at this time. Initial Sepsis Screen: Does the patient meet any 2 criteria? No. Patient's initial sepsis screen is negative. Does the patient have a suspected source of infection? No. Patient's initial sepsis screen is negative. Risk Assessment: Do you want to hurt yourself or someone else? Patient reports no desire to harm self or others. Onset of symptoms was June 07, 2022. 21:49 Method Of Arrival: EMS: [facility] bb 21:49 Acuity: KVNG 3 bb 21:54 Note pt c/o dark patches under arms states she has had them for around 8 years and bb thinks it may be a blood disorder. 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 - Social history:: Smoking status: Patient reports the use of cigarette tobacco products. Screenin:51 Abuse screen: Denies threats or abuse. Nutritional screening: No deficits noted. bb Tuberculosis screening: No symptoms or risk factors identified. Fall Risk None identified. Assessment: 21:51 General: Appears in no apparent distress. Behavior is calm, cooperative. Pain: Denies bb pain. Neuro: Level of Consciousness is awake, alert, obeys commands, Oriented to person, place, time, situation. Cardiovascular: Capillary refill < 3 seconds Patient's skin is warm and dry. Edema is absent. Respiratory: Respiratory effort is even, unlabored, Respiratory pattern is regular, Breath sounds are clear bilaterally. GI: Abdomen is round Bowel sounds present X 4 quads. Abd is soft and non tender X 4 quads. Derm: Skin is dry, Skin is normal, Skin temperature is warm. Musculoskeletal: Circulation, motion, and sensation intact. 22:18 Reassessment: pt refused IV after insertion insisted on having it removed, when layed bb flat for orthostatics pt refused to lay flat Dr Wagoner notified. 23:22 Reassessment: Patient is alert, oriented x 3, equal unlabored respirations, skin bb warm/dry/pink. pt walked to the bathroom with steady gait but was unable to give a urine sample Dr Wagoner notified, new orders received lab drawn for HCG. Vital Signs: 21:49 BP 155 / 101; Pulse 78; Resp 16 S; Temp 98(O); Pulse Ox 99% on R/A; Weight 61.23 kg bb (R); Height 4 ft. 11 in. (149.86 cm) (R); Pain 0/10; 06/08 00:29 BP 148 / 90; Pulse 76; Resp 16; Pulse Ox 99% ; Pain 0/10; kl 06/07 21:49 Body Mass Index 27.27 (61.23 kg, 149.86 cm) bb ED Course: 06/07 21:48 Patient arrived in ED. mw2 21:49 Shahana Gil, RN is Primary Nurse. bb 21:50 Flores Wagoner MD is Attending Physician. sp3 21:51 Triage completed. bb 21:51 Arm band placed on Patient placed in an exam room, on a stretcher, on pulse oximetry. bb 21:51 Patient has correct armband on for positive identification. Placed in gown. Bed in low bb position. Call light in reach. Side rails up X 1. Pulse ox on. NIBP on. Warm blanket given. 22:00 Initial lab(s) drawn, by me, sent to lab. Inserted saline lock: 20 gauge in right bb antecubital area, using aseptic technique. Blood collected. 22:20 IV discontinued, intact, bleeding controlled, No redness/swelling at site. Pressure bb dressing applied, per pt request. 06/08 00:30 No provider procedures requiring assistance completed. kl Administered Medications: No medications were administered Medication: 06/07 21:51 VIS not applicable for this client. sergei Outcome: 06/08 00:04 Discharge ordered by . sp3 00:30 Discharged to home ambulatory. margaret 00:30 Condition: stable 00:30 Discharge instructions given to patient, Instructed on discharge instructions, follow up and referral plans. Demonstrated understanding of instructions, follow-up care. 00:30 Patient left the ED. Signatures: Stephani Palomares RN RN kl Ballard, Brenda, RN RN bb [place], [facility] Flores Wagoner MD MD sp3
== END 2022-06-08 00:30 | disposition home or self-care (01) ==
LOC: ER 21:45
DX: N93.9 Abnormal uterine and vaginal bleeding, unspecified (principal)
CPT/HCPCS: 36415; 80053; 84703; 85025; 99284

== ENCOUNTER 2022-07-25 14:33 | Emergency (ER) | payer OTHER ==
[2022-07-25 15:27] LABS: Urine Blood Negative (Negative); Urine Glucose Negative (Negative); Urine Protein 2+ (Negative); Urine Specific Gravity >=1.030 (1.005-1.030)
--- NOTE | 2022-07-25 15:28 | RAD REPORT ---
EXAM DESCRIPTION: CT - Head Brain Wo Cont - 07/25/2022 3:06 pm CLINICAL HISTORY: left sided headache, acute onset COMPARISON: Head Brain Wo Cont dated 05/15/2022 TECHNIQUE: Axial 5 mm thick images of the head were obtained without IV contrast. All CT scans are performed using dose optimization technique as appropriate and may include automated exposure control or mA/KV adjustment according to patient size. FINDINGS: No intracranial hemorrhage, mass, edema or shift of mid-line structures. No acute infarcti on changes seen. No abnormal extra-axial fluid collections. Ventricles are normal. Mastoid air cells and visualized portions of the paranasal sinuses are clear. No acute bony findings. No significant change from comparison. IMPRESSION: Negative non-contrast CT head examination.
[2022-07-25 15:31] LABS: Protime INR 1.02
[2022-07-25 15:39] LABS: Absolute Lymphocytes (CBC) 1.9 K/uL (0.7-4.9); Hematocrit 32.8 % (36.0-45.0); Lymphocytes % 23.4 % (15.3-44.8); MCV 74.5 fL (80-100); MPV 9.5 fL (7.6-11.3)
--- NOTE | 2022-07-25 15:39 | RAD REPORT ---
EXAM DESCRIPTION: RAD - Chest Single View - 07/25/2022 3:27 pm CLINICAL HISTORY: CHEST PAIN, hypertension COMPARISON: Portable 11/23/2021 TECHNIQUE: AP portable chest image was obtained 07/25/2022 3:27 pm . FINDINGS: No focal mass or consolidation. Interstitial markings are slightly prominent probably from under penetrated film technique and shallow inspiration. A minimal interstitial edema or infiltrate cannot be excluded. Heart and vasculature are normal. No measurable pleural effusion and no pneumothorax. No acute bony abnormality seen. No acute aortic findings suspected. IMPRESSION: No focal cardiopulmonary process and no significant edema findings. Minimal prominence of the lung markings from shallow inspiration could mask a mild interstitial edema or infiltrate.
[2022-07-25 16:01] LABS: Albumin 4.1 g/dL (3.4-5.0); Bilirubin Direct 0.2 mg/dL (0-0.2); Bilirubin Total 0.5 mg/dL (0.2-1.0); Potassium 3.3 mmol/L (3.5-5.1); Protein, Total 8.8 g/dL (6.4-8.2); Troponin High Sensitivity 4.1 pg/mL (<58.9)
--- NOTE | 2022-07-25 16:04 | EDPHYS ---
Physician Documentation [facility] Name: Evita Tomlin Age: 37 yrs Sex: Female : 1985 Arrival Date: 07/25/2022 Time: 14:36 Bed 11 Private MD: ED Physician Kelby Braden HPI: 07/25 15:10 This 37 yrs old Black Female presents to ER via EMS with complaints of Headache, Chest jmm Pain. 15:10 The patient complains of pain to the left ear and left zoroastrian. Onset: The jmm symptoms/episode began/occurred acutely, 1 hour(s) ago. Associated signs and symptoms: Pertinent negatives: fever. This is a 37 year old female with a history of anxiety that presents to the ED with acute onset headache beginning approx 1 hour prior to arrival. Also complains of chest pain, sob, and states she feels as if she is going to pass out. . [facility]: 14:45 LMP 06/29/2022 iw Historical: - Allergies: 14:44 No Known Allergies; iw - Home Meds: 14:44 None [Active]; iw - PMHx: 14:44 Anxiety; Hypertension; nerve pain; iw - PSHx: 14:44 ectopic ; iw - Social history:: Smoking status: Patient reports the use of cigarette tobacco products, smokes one-half pack cigarettes per day. ROS: 15:10 Constitutional: Negative for fever, chills, and weight loss. jmm 15:10 ENT: Positive for ear pain. 15:10 Cardiovascular: Positive for chest pain. 15:10 Respiratory: Positive for shortness of breath. 15:10 Neuro: Positive for headache. 15:10 All other systems are negative. Exam: 15:10 Head/Face: atraumatic. Eyes: EOMI, no conjunctival erythema appreciated ENT: Moist jmm Mucus Membranes Neck: Trachea midline, Supple Chest/axilla: Normal chest wall appearance and motion. Cardiovascular: Regular rate and rhythm. No edema appreciated Respiratory: Normal respirations, no respiratory distress appreciated Abdomen/GI: Non distended Back: Normal ROM Skin: General appearance color normal MS/ Extremity: Moves all extremities, no obvious deformities appreciated, no edema noted to the lower extremities Neuro: Awake and alert Psych: Behavior is normal, Mood is normal, Patient is cooperative and pleasant 15:10 Constitutional: The patient appears alert, awake, anxious. Vital Signs: 14:42 BP 153 / 99; Pulse 110; Resp 18; Temp 98.3; Pulse Ox 98% on R/A; Weight 57.61 kg; iw Height 4 ft. 11 in. (149.86 cm); Pain 10/10; 14:42 Body Mass Index 25.65 (57.61 kg, 149.86 cm) iw MDM: 14:45 Patient medically screened. [facility] 15:40 Data reviewed: vital signs, nurses notes. Counseling: I had a detailed discussion with [facility] the patient and/or guardian regarding: the historical points, exam findings, and any diagnostic results supporting the discharge/admit diagnosis. 07/25 14:45 Order name: Basic Metabolic Panel; Complete Time: 16:02 [facility] 07/25 14:45 Order name: CBC with Diff; Complete Time: 15:43 [facility] 07/25 14:45 Order name: LFT's; Complete Time: 16:02 [facility] 07/25 14:45 Order name: Magnesium; Complete Time: 16:02 [facility] 07/25 14:45 Order name: NT PRO-BNP; Complete Time: 16:02 [facility] 07/25 14:45 Order name: PT-INR; Complete Time: 15:39 [facility] 07/25 14:45 Order name: Troponin HS; Complete Time: 16:02 [facility] 07/25 14:45 Order name: XRAY Chest (1 view); Complete Time: 15:43 [facility] 07/25 14:45 Order name: EKG; Complete Time: 14:46 [facility] 07/25 14:45 Order name: Cardiac monitoring; Complete Time: 15:29 [facility] 07/25 14:45 Order name: EKG - Nurse/Tech; Complete Time: 15:29 [facility] 07/25 14:45 Order name: IV Saline Lock; Complete Time: 15:17 [facility] 07/25 14:45 Order name: CT Head Brain wo Cont; Complete Time: 15:39 [facility] 07/25 15:27 Order name: Urine Dipstick-Ancillary; Complete Time: 15:39 [facility] 07/25 14:45 Order name: Labs collected and sent; Complete Time: 15:17 [facility] 07/25 14:45 Order name: O2 Per Protocol; Complete Time: 14:54 [facility] 07/25 14:45 Order name: O2 Sat Monitoring; Complete Time: 14:54 jmm Administered Medications: No medications were administered Disposition: 16:46 Co-signature as Attending Physician, Kelby Braden MD. rn Disposition Summary: 07/25/22 16:03 Discharge Ordered Location: Home jmm Condition: Stable jmm Diagnosis - Chest pain, unspecified jmm - Headache jmm Followup: jmm - With: Private Physician - When: 2 - 3 days - Reason: Recheck today's complaints, Continuance of care, Re-evaluation by your physician Discharge Instructions: - Discharge Summary Sheet jmm - Nonspecific Chest Pain, Adult jmm Forms: - Medication Reconciliation Form jmm - Thank You Letter jmm - Antibiotic Education jmm - Prescription Opioid Use jmm Signatures: Dispatcher [employer] Jean Claude Mallory PA PA jmm Williams, Irene, RN RN Kelby Santos MD MD rn
--- NOTE | 2022-07-25 16:04 | ER ---
Nurse's Notes [facility] Name: Evita Tomlin Age: 37 yrs Sex: Female : 1985 Arrival Date: 07/25/2022 Time: 14:36 Bed 11 Private MD: Diagnosis: Chest pain, unspecified;Headache Presentation: 07/25 14:42 Chief complaint: Patient states: was walking to the store and she felt like she was iw going to pass out , still feels like she is going to pass, out left ear is hurting on th inside , no fever, no cough, +SOB and chest , now states that her head is hurting and feels like something is coming out of it. Coronavirus screen: At this time, the client does not indicate any symptoms associated with coronavirus-19. Ebola Screen: Patient negative for fever greater than or equal to 101.5 degrees Fahrenheit, and additional compatible Ebola Virus Disease symptoms Patient denies exposure to infectious person. Patient denies travel to an Ebola-affected area in the 21 days before illness onset. No symptoms or risks identified at this time. Initial Sepsis Screen: Does the patient meet any 2 criteria? No. Patient's initial sepsis screen is negative. Does the patient have a suspected source of infection? No. Patient's initial sepsis screen is negative. Risk Assessment: Do you want to hurt yourself or someone else? Patient reports no desire to harm self or others. Onset of symptoms was July 25, 2022. 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 Screenin:51 Abuse screen: Denies threats or abuse. Denies injuries from another. Nutritional ld1 screening: No deficits noted. Tuberculosis screening: No symptoms or risk factors identified. Fall Risk None identified. Assessment: 14:51 Reassessment:. Reassessment: Pt continuously requesting to go upstairs and get in ld1 shower. States "it makes me feel better." Displaying signs of anxiety and frustration - uncooperative at this time. General: Appears distressed, uncomfortable, Behavior is anxious, fussy, inappropriate for age, uncooperative. Pain: Denies pain. Neuro: Level of Consciousness is awake, alert, confused, Oriented to person, place, time. Cardiovascular: Capillary refill < 3 seconds Patient's skin is warm and dry. Respiratory: Airway is patent Respiratory effort is even, unlabored. GI: Abdomen is flat, non-distended. : No signs and/or symptoms were reported regarding the genitourinary system. EENT: No signs and/or symptoms were reported regarding the EENT system. Derm: No signs and/or symptoms reported regarding the dermatologic system. 14:52 Reassessment: pt states she wants to get in the shower, I advised the pt that there iw isn't a shower for her to use at this time, pt insists on having a shower, refuses to allow to us to do IV or EKG at this time. 14:55 Reassessment: Pt in room with head under water in sink. "This helps me feel better." Pt ld1 uncooperative - entering [place] and walking around dripping wet. Vital Signs: 14:42 BP 153 / 99; Pulse 110; Resp 18; Temp 98.3; Pulse Ox 98% on R/A; Weight 57.61 kg; iw Height 4 ft. 11 in. (149.86 cm); Pain 10/10; 14:42 Body Mass Index 25.65 (57.61 kg, 149.86 cm) ED Course: 14:36 Patient arrived in ED. as 14:38 Jean Claude Martinez PA is PHCP. [facility] 14:38 Kelby Braden MD is Attending Physician. [facility] 14:44 Triage completed. iw 14:45 Arm band placed on. iw 14:51 Patient has correct armband on for positive identification. Bed in low position. Call ld1 light in reach. Side rails up X2. Pulse ox on. NIBP on. Door closed. Noise minimized. 14:51 No provider procedures requiring assistance completed. ld1 14:53 Lily Carolina, JAILENE is Primary Nurse. ld1 15:08 CT Head Brain wo Cont In Process Unspecified. EDMS 15:17 Inserted saline lock: 20 gauge in right antecubital area, using aseptic technique. ld1 Blood collected. 15:29 XRAY Chest (1 view) In Process Unspecified. EDMS 16:45 IV discontinued, intact, bleeding controlled, No redness/swelling at site. ld1 Administered Medications: No medications were administered Medication: 14:51 VIS not applicable for this client. ld1 Outcome: 16:03 Discharge ordered by . [facility] 16:44 Discharged to home ambulatory. ld1 16:44 Condition: stable 16:44 Discharge instructions given to patient, Instructed on discharge instructions, follow up and referral plans. Demonstrated understanding of instructions, follow-up care. 16:45 Patient left the ED. ld1 Signatures: Dispatcher [employer] EDMS Jean Claude Martinez PA PA jmm Martinez, Amelia as Williams, Irene, RN RN iw Lily Carolina RN RN ld1
[2022-07-25 17:06] VITALS: BP 153/99; TEMP 98.3; O2SAT 98
--- NOTE | 2022-07-26 19:02 | EKG ---
Test Date: 2022-07-25 Test Time: 15:25:30 [employer] Underwriter: KRISTAN MEASUREMENT RESULTS: Intervals: Rate: 89 WI: 136 QRSD: 80 QT: 364 QTc: 442 [place]: P: 110 WI: 136 QRS: 159 T: 128 INTERPRETIVE STATEMENTS: Suspect arm lead reversal, interpretation assumes no reversal Normal sinus rhythm Right axis deviation Pulmonary disease pattern Abnormal ECG Compared to ECG 11/23/2021 06:15:46 Right-axis deviation now present Electronically Signed On 07-26-22 19:00:36 HIGH PRESSURE BOILER OPERATOR by Gregg Chinchilla
== END 2022-07-25 16:45 | disposition home or self-care (01) ==
LOC: ER 14:33
DX: R07.89 Other chest pain (principal); R51.9 Headache, unspecified; I10 Essential (primary) hypertension; F17.210 Nicotine dependence, cigarettes, uncomplicated
CPT/HCPCS: 36415; 70450; 71045; 80048; 80076; 81003; 83735; 83880; 84484; 85025; 85610; 93005; 99284

== ENCOUNTER 2022-07-25 17:30 | Emergency (ER) | payer OTHER ==
[2022-07-25] MEDS ORDERED: hydrOXYzine HCL 25 MG TAB ONE (18:14)
[2022-07-25 18:51] LABS: SARS-COV-2 RT PCR NEGATIVE (NEGATIVE)
--- NOTE | 2022-07-25 21:03 | ER ---
Nurse's Notes [facility] Name: Evita Tomlin Age: 37 yrs Sex: Female : 1985 Arrival Date: 07/25/2022 Time: 17:32 Bed 11 Private MD: Diagnosis: Other malaise and fatigue Presentation: 07/25 17:49 Chief complaint: Patient states: I went outside and I just don't feel good, I felt like iw my pores were open and I can't handle it outside. Coronavirus screen: At this time, the client does not indicate any symptoms associated with coronavirus-19. Ebola Screen: Patient negative for fever greater than or equal to 101.5 degrees Fahrenheit, and additional compatible Ebola Virus Disease symptoms Patient denies exposure to infectious person. Patient denies travel to an Ebola-affected area in the 21 days before illness onset. No symptoms or risks identified at this time. Initial Sepsis Screen: Does the patient meet any 2 criteria? No. Patient's initial sepsis screen is negative. Does the patient have a suspected source of infection? No. Patient's initial sepsis screen is negative. Risk Assessment: Do you want to hurt yourself or someone else? Patient reports no desire to harm self or others. Onset of symptoms was July 25, 2022. 17:49 Method Of Arrival: Ambulatory iw 17:49 Acuity: KVNG 4 iw FIFTH HAND: 21:11 LMP N/A - Irregular menses kl Historical: - Allergies: 17:51 No Known Allergies; iw - PMHx: 17:51 Anxiety; Hypertension; nerve pain; iw - PSHx: 17:51 ectopic ; iw - Immunization history:: Adult Immunizations not up to date. - Social history:: Smoking status: Patient denies any tobacco usage or history of. Screenin:27 Abuse screen: Denies threats or abuse. Nutritional screening: No deficits noted. kl Tuberculosis screening: No symptoms or risk factors identified. Fall Risk None identified. Assessment: 19:26 General: Appears in no apparent distress. Behavior is anxious. Pain: Denies pain. kl Neuro: No deficits noted. Cardiovascular: No deficits noted. Respiratory: No deficits noted. GI: No deficits noted. : No deficits noted. EENT: No deficits noted. Derm: No deficits noted. Musculoskeletal: No deficits noted. Vital Signs: 17:49 BP 133 / 94; Pulse 93; Resp 16; Temp 97.9; Pulse Ox 98% on R/A; iw 19:00 BP 129 / 92; Pulse 86; Resp 18; Pulse Ox 99% on R/A; ld1 ED Course: 17:32 Patient arrived in ED. am2 17:36 Jean Claude Martinez PA is PHCP. [facility] 17:36 Kelby Braden MD is Attending Physician. [facility] 17:51 Triage completed. iw 17:51 Arm band placed on. iw 17:58 Nichole Estrada, RN is Primary Nurse. jl7 18:03 COVID swab sent to lab. Flu and/or RSV swab sent to lab. tm3 18:12 Lily Carolina, RN is Primary Nurse. ld1 18:14 EKG done, by ED staff. tm3 18:15 COVID-19/FLU A+B Sent. ld1 21:10 No provider procedures requiring assistance completed. kl 21:10 Patient did not have IV access during this emergency room visit. kl 21:11 Patient has correct armband on for positive identification. kl Administered Medications: 18:15 Drug: hydrOXYzine 25 mg Route: PO; ld1 Medication: 21:11 VIS not applicable for this client. Outcome: 21:03 Discharge ordered by . [facility] 21:09 Discharged to home ambulatory. kl 21:09 Condition: stable 21:09 Discharge instructions given to patient, Instructed on discharge instructions, follow up and referral plans. the need for admit, Demonstrated understanding of instructions, follow-up care, medications. 21:11 Patient left the ED. kl Signatures: Stephani Palomares, RN Oseas Saleem tm3 Jean Claude Martinez PA PA Joanna Spencer RN RN Nichole Estrada RN RN 7 Isi Clements am2 Lily aCrolina, JAILENE DENT ld1
--- NOTE | 2022-07-25 21:03 | EDPHYS ---
Physician Documentation [facility] Name: Evita Tomlin Age: 37 yrs Sex: Female : 1985 Arrival Date: 07/25/2022 Time: 17:32 Bed 11 Private MD: ED Physician Kelby Braden HPI: 07/25 17:40 This 37 yrs old Black Female presents to ER via Ambulatory with complaints of Near jmm Syncope. 17:40 Onset: The symptoms/episode began/occurred gradually. This is a 37 year old female with jmm a history of anxiety, hypertension that presents to the ED with her second visit today. Patient states when she went outside she began to feel not well. Patient states it feels like needles are pushing out her skin. Previous labs taken today were unremarkable. Vital signs are wnl. . 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 - Social history:: Smoking status: Patient denies any tobacco usage or history of. ROS: 17:40 Cardiovascular: Negative for chest pain, palpitations, and edema, Respiratory: Negative jmm for shortness of breath, cough, wheezing, and pleuritic chest pain. 17:40 Constitutional: Positive for body aches. 17:40 All other systems are negative. Exam: 17:40 Constitutional: This is a well developed, well nourished patient who is awake, alert, jmm and in no acute distress. Head/Face: atraumatic. Eyes: EOMI, no conjunctival erythema appreciated ENT: Moist Mucus Membranes Neck: Trachea midline, Supple Chest/axilla: Normal chest wall appearance and motion. Cardiovascular: Regular rate and rhythm. No edema appreciated Respiratory: Normal respirations, no respiratory distress appreciated Abdomen/GI: Non distended Back: Normal ROM Skin: General appearance color normal MS/ Extremity: Moves all extremities, no obvious deformities appreciated, no edema noted to the lower extremities Neuro: Awake and alert Psych: Behavior is normal, Mood is normal, Patient is cooperative and pleasant Vital Signs: 17:49 BP 133 / 94; Pulse 93; Resp 16; Temp 97.9; Pulse Ox 98% on R/A; iw 19:00 BP 129 / 92; Pulse 86; Resp 18; Pulse Ox 99% on R/A; ld1 MDM: 17:45 Patient medically screened. [facility] 20:29 Data reviewed: vital signs, nurses notes. Counseling: I had a detailed discussion with [facility] the patient and/or guardian regarding: the historical points, exam findings, and any diagnostic results supporting the discharge/admit diagnosis, lab results, the need for outpatient follow up, to return to the emergency department if symptoms worsen or persist or if there are any questions or concerns that arise at home. 07/25 17:39 Order name: COVID-19/FLU A+B; Complete Time: 18:53 [facility] 07/25 17:40 Order name: EKG - Nurse/Tech; Complete Time: 18:15 [facility] 07/25 20:49 Order name: Vital Signs [facility] EC:29 Rate is 86 beats/min. Rhythm is regular. QRS [place] is Normal. NE interval is normal. QRS jmm interval is normal. QT interval is normal. No Q waves. T waves are Normal. No ST changes noted. Administered Medications: 18:15 Drug: hydrOXYzine 25 mg Route: PO; ld1 Disposition Summary: 07/25/22 21:03 Discharge Ordered Location: Home [facility] Condition: Stable [facility] Diagnosis - Other malaise and fatigue [facility] Followup: [facility] - With: Private Physician - When: 2 - 3 days - Reason: Recheck today's complaints, Continuance of care, Re-evaluation by your physician Discharge Instructions: - Discharge Summary Sheet [facility] - Neuropathic Pain [facility] - Fatigue [facility] Forms: - Medication Reconciliation Form [facility] - Thank You Letter [facility] - Antibiotic Education [facility] - Prescription Opioid Use [facility] Signatures: Dispatcher [employer] EDMS Stephani Palomares RN Jean Claude Chua PA PA jmm Joanna Palmer RN RN iw Dibbern, Lauren, RN RN ld1 Corrections: (The following items were deleted from the chart) 18:02 17:39 SARS-COV-2 RT PCR+[id number] ordered. EDMS EDMS
[2022-07-25 21:59] VITALS: TEMP 97.9
[2022-07-25 22:11] VITALS: BP 129/92; O2SAT 99
--- NOTE | 2022-07-26 19:02 | EKG ---
Test Date: 2022-07-25 Test Time: 18:12:56 Senior Quality Control Technician: TM MEASUREMENT RESULTS: Intervals: Rate: 86 NH: 136 QRSD: 78 QT: 376 QTc: 449 [place]: P: 62 NH: 136 QRS: 44 T: 49 INTERPRETIVE STATEMENTS: Normal sinus rhythm Normal ECG Compared to ECG 07/25/2022 15:25:30 Right-axis deviation no longer present Electronically Signed On 07-26-22 19:00:32 WEATHER FORCASTER by Gregg Chinchilla
== END 2022-07-25 21:11 | disposition home or self-care (01) ==
LOC: ER 17:30
DX: R53.81 Other malaise (principal); R53.83 Other fatigue; I10 Essential (primary) hypertension; Z20.822 Contact with and (suspected) exposure to COVID-19
CPT/HCPCS: 93005; 0240U; 99283

== ENCOUNTER 2023-01-19 11:46 | Emergency (ER) | payer OTHER ==
--- NOTE | 2023-01-19 13:34 | ER ---
Nurse's Notes [facility] Name: Evita Tomlin Age: 37 yrs Sex: Female : 1985 Arrival Date: 01/19/2023 Time: 11:46 Bed 15 Private MD: Diagnosis: Presentation: 01/19 11:56 Chief complaint: EMS states: Doesn't feel right. Denies pain. BP 167/98, HR 89, T 97.8, hb BGL 76. Coronavirus screen: At this time, the client does not indicate any symptoms associated with coronavirus-19. Ebola Screen: No symptoms or risks identified at this time. Risk Assessment: Do you want to hurt yourself or someone else? Patient reports no desire to harm self or others. Onset of symptoms is unknown. 11:56 Method Of Arrival: EMS: [facility] 11:56 Acuity: KVNG 3 hb 12:02 Initial Sepsis Screen: Does the patient meet any 2 criteria? No. Patient's initial hb sepsis screen is negative. Does the patient have a suspected source of infection? No. Patient's initial sepsis screen is negative. Triage Assessment: 12:12 General: Appears in no apparent distress. uncomfortable, Behavior is cooperative, eh3 agitated. Pain: Denies pain. Historical: - Allergies: 12:02 No Known Drug Allergies; hb - Home Meds: 12:02 None [Active]; hb - PMHx: 12:02 Anxiety; Hypertension; nerve pain; hb - PSHx: 12:02 ectopic ; hb - Immunization history:: Adult Immunizations up to date. - Social history:: Smoking status: Patient reports the use of cigarette tobacco products. Screenin:15 [facility] ED Fall Risk Assessment (Adult) Score/Fall Risk Level 0 - 2 = Low Risk. Abuse eh3 screen: Denies threats or abuse. Denies injuries from another. Nutritional screening: No deficits noted. Tuberculosis screening: No symptoms or risk factors identified. Assessment: 12:15 General: Appears in no apparent distress. uncomfortable, Behavior is calm, cooperative, eh3 appropriate for age. Pain: Complains of pain in top of head, left occipital area and right occipital area Pain does not radiate. Pain: Pain currently is 8 out of 10 on a pain scale. at worst was 10 out of 10 on a pain scale. Pain began 1 hour ago. Neuro: Level of Consciousness is awake, obeys commands, lethargic, Oriented to person, place, time, situation, Medical Science Liaison are equal bilaterally Moves all extremities. Gait is steady, Speech is normal, Facial symmetry appears normal, Pupils are PERRLA, Intact Reports dizziness, headache frontal area, occipital area, weakness since 1 hour ago. Cardiovascular: Capillary refill < 3 seconds Patient's skin is warm and dry. Respiratory: Airway is patent Respiratory effort is even, unlabored, Respiratory pattern is regular, symmetrical. GI: No signs and/or symptoms were reported involving the gastrointestinal system. Abdomen is round non-distended. : No signs and/or symptoms were reported regarding the genitourinary system. EENT: No signs and/or symptoms were reported regarding the EENT system. Derm: No signs and/or symptoms reported regarding the dermatologic system. Skin is intact, is healthy with good turgor, Skin is pink, warm \\T\\ dry. Musculoskeletal: No signs and/or symptoms reported regarding the musculoskeletal system. Circulation, motion, and sensation intact. Range of motion: intact in all extremities. 13:18 Reassessment: After seen by provider, nurse entered room to start IV. Pt verbalized eh3 understanding of purpose of bloodwork. After tourniquet applied to arm, pt stated, "Hold on," began crying and stated, "This is crazy, this is crazy. I'm not doing this. I'm leaving." Tourniquet removed from arm. Pt removed BP and SpO2 monitors and walked out of room. Vital Signs: 12:02 BP 160 / 106; Pulse 86; Resp 16; Temp 98.3(O); Pulse Ox 100% on R/A; Weight 57.15 kg; hb Height 4 ft. 11 in. ; Pain 0/10; 12:45 BP 171 / 94; Pulse 71; Resp 18; Pulse Ox 100% on R/A; eh3 12:02 Body Mass Index 25.45 (57.15 kg, 149.86 cm) hb 12:02 Pain Scale: Adult hb NIH Stroke Scale Scores: 12:15 NIHSS Score: 0 eh3 ED Course: 11:50 Patient arrived in ED. mr 11:54 Kye Morales MD is Attending Physician. kdr 11:57 Triage completed. hb 12:02 Arm band placed on. 12:12 Mitzy Talavera, RN is Primary Nurse. 3 12:15 Patient has correct armband on for positive identification. Bed in low position. Call 3 light in reach. Side rails up X2. Pulse ox on. NIBP on. Door closed. Noise minimized. Warm blanket given. 13:18 No provider procedures requiring assistance completed. Patient did not have IV access 3 during this emergency room visit. Administered Medications: No medications were administered Medication: 13:18 VIS not applicable for this client. eh3 Outcome: 13:18 Eloped from patient exam room, after seeing physician [facility] 13:18 Condition: unchanged 13:18 Discharge instructions given to pt eloped before discharge 13:18 Patient left the ED. 3 NIH Stroke Scale - NIH Stroke Score Date: 01/19/2023 Time: 12:15 Total Score = 0 10. Dysarthria (speech clarity - read or repeat words) - 0(Normal) 11. Extinction and Inattention (visual/tactile/auditory/spatial/personal) - 0(No abnormality) 1a. Level of Consciousness (LOC) - 0(Alert) 1b. Level of Consciousness (LOC) (Month \\T\\ Age) - 0(Both) 1c. LOC Commands (Open \\T\\ Closes Eyes/Postal Inspector) - 0(Both) 2. Best Gaze (Lateral Gaze Paresis) - 0(Normal) 3. Visual Field Loss - 0(No visual loss) 4. Facial Palsy - 0(Normal) 5a. Left Arm: Motor (10-second hold) - 0(No drift) 5b. Right Arm: Motor (10-second hold) - 0(No drift) 6a. Left Leg: Motor (5-second hold - always test supine) - 0(No drift) 6b. Right Leg: Motor (5-second hold - always test supine) - 0(No drift) 7. Limb Ataxia (finger/nose \\T\\ heel/lazcano - test with eyes open) - 0(Absent) 8. Sensory Loss (pinprick arms/legs/face) - 0(Normal) 9. Best Language: Aphasia (description/naming/reading) - 0(No aphasia) Initials: 3 Signatures: Kye Morales MD MD [facility] Maile Colby Heather, RN RN Mitzy Talavera RN RN 3 Corrections: (The following items were deleted from the chart) 12:02 11:56 Chief complaint: EMS states: Doesn't feel right. Denies pain. BP 167/98, hb HR 89, T 97.8, BGL 76 hb 13:34 13:34 Patient left the ED. 3 3
[2023-01-19 13:52] VITALS: TEMP 98.3; O2SAT 100
[2023-01-19 13:54] VITALS: BP 171/94
--- NOTE | 2023-01-20 13:44 | EDPHYS ---
Physician Documentation [facility] Name: Evita Tomlin Age: 37 yrs Sex: Female : 1985 Arrival Date: 01/19/2023 Time: 11:46 Bed 15 Private MD: ED Physician Kye Morales HPI: 01/19 13:58 This 37 yrs old Black Female presents to ER via EMS with complaints of Doesn't Feel kdr Right. 13:58 Patient presents with very vague symptoms basically saying she just does not feel right kdr she feels some vague diffuse chest discomfort. She stated that she feels like there is something spiritually wrong with her. That something is emanating off of her. She denies suicidal ideation or hallucinations of of either visual or auditory. Patient is otherwise stable and nonacute in the ED. Shortly after my initial evaluation, patient left the department without further testing being done. She stated that she would not comply with the lab draws that have been ordered. Patient appears to be otherwise stable and not in emergent.. Onset: The symptoms/episode began/occurred at an unknown time. Severity of symptoms: At their worst the symptoms were mild in the emergency department the symptoms are unchanged. The patient has not experienced similar symptoms in the past. The patient has not recently seen a physician. Historical: - Allergies: 12:02 No Known Drug Allergies; hb - Home Meds: 12:02 None [Active]; hb - PMHx: 12:02 Anxiety; Hypertension; nerve pain; hb - PSHx: 12:02 ectopic ; hb - Immunization history:: Adult Immunizations up to date. - Social history:: Smoking status: Patient reports the use of cigarette tobacco products. ROS: 13:58 Constitutional: Negative for fever, chills, and weight loss. Patient states she kdr generally does not feel well but cannot localize or better describe any particular physical condition to her current situation Eyes: Negative for injury, pain, redness, and discharge, ENT: Negative for injury, pain, and discharge, Neck: Negative for injury, pain, and swelling, Cardiovascular: Negative for chest pain, palpitations, and edema, Respiratory: Negative for shortness of breath, cough, wheezing, and pleuritic chest pain, Abdomen/GI: Negative for abdominal pain, nausea, vomiting, diarrhea, and constipation, Back: Negative for injury and pain, : Negative for injury, bleeding, discharge, and swelling, MS/Extremity: Negative for injury and deformity, Skin: Negative for injury, rash, and discoloration, Neuro: Negative for headache, weakness, numbness, tingling, and seizure activity. Psych: Negative for depression, anxiety, suicide ideation, homicidal ideation, and hallucinations, Allergy/Immunology: Negative for hives, rash, and allergies, Endocrine: Negative for neck swelling, polydipsia, polyuria, polyphagia, and marked weight changes, Hematologic/Lymphatic: Negative for swollen nodes, abnormal bleeding, and unusual bruising. Exam: 13:58 Constitutional: This is a well developed, well nourished patient who is awake, alert, kdr and in no acute distress. Head/Face: Normocephalic, atraumatic. Eyes: Pupils equal round and reactive to light, extra-ocular motions intact. Lids and lashes normal. Conjunctiva and sclera are non-icteric and not injected. Cornea within normal limits. Periorbital areas with no swelling, redness, or edema. Neck: Trachea midline, no thyromegaly or masses palpated, and no cervical lymphadenopathy. Supple, full range of motion without nuchal rigidity, or vertebral point tenderness. No Meningismus. Chest/axilla: Normal chest wall appearance and motion. Nontender with no deformity. No lesions are appreciated. Cardiovascular: Regular rate and rhythm with a normal S1 and S2. No gallops, murmurs, or rubs. Normal PMI, no JVD. No pulse deficits. Respiratory: Lungs have equal breath sounds bilaterally, clear to auscultation and percussion. No rales, rhonchi or wheezes noted. No increased work of breathing, no retractions or nasal flaring. Abdomen/GI: Soft, non-tender, with normal bowel sounds. No distension or tympany. No guarding or rebound. No evidence of tenderness throughout. Back: No spinal tenderness. No costovertebral tenderness. Full range of motion. Skin: Warm, dry with normal turgor. Normal color with no rashes, no lesions, and no evidence of cellulitis. MS/ Extremity: Pulses equal, no cyanosis. Neurovascular intact. Full, normal range of motion. Neuro: Awake and alert, GCS 15, oriented to person, place, time, and situation. Cranial nerves II-XII grossly intact. Motor strength 5/5 in all extremities. Sensory grossly intact. Cerebellar exam normal. Normal gait. Psych: Awake, alert, with orientation to person, place and time. Behavior, mood, and affect are within normal limits. Vital Signs: 12:02 BP 160 / 106; Pulse 86; Resp 16; Temp 98.3(O); Pulse Ox 100% on R/A; Weight 57.15 kg; hb Height 4 ft. 11 in. ; Pain 0/10; 12:45 BP 171 / 94; Pulse 71; Resp 18; Pulse Ox 100% on R/A; eh3 12:02 Body Mass Index 25.45 (57.15 kg, 149.86 cm) hb 12:02 Pain Scale: Adult hb NIH Stroke Scale Scores: 12:15 NIHSS Score: 0 3 MDM: 13:58 Data reviewed: vital signs, nurses notes, lab test result(s), radiologic studies. ED kdr course: Patient eloped from the department after informing the nurse that she was not going to make herself available for the laboratory evaluation. 01/19 13:08 Order name: EKG; Complete Time: 13:[address] [facility] 01/19 13:15 Order name: Diet Regular; Complete Time: 13:16 kdr 01/19 13:08 Order name: EKG - Nurse/Tech [facility] 01/19 13:08 Order name: IV Saline Lock [facility] 01/19 13:08 Order name: Labs collected and sent [facility] 01/19 13:08 Order name: Suicide Screening ([place]) kdr Administered Medications: No medications were administered Disposition Summary: 01/19/23 13:34 Eloped Disposition: after being seen by provider 3 Reason: (see nurse's notes) 3 NIH Stroke Scale - NIH Stroke Score Date: 01/19/2023 Time: 12:15 Total Score = 0 10. Dysarthria (speech clarity - read or repeat words) - 0(Normal) 11. Extinction and Inattention (visual/tactile/auditory/spatial/personal) - 0(No abnormality) 1a. Level of Consciousness (LOC) - 0(Alert) 1b. Level of Consciousness (LOC) (Month \T\ Age) - 0(Both) 1c. LOC Commands (Open \T\ Closes Eyes/Database Operator) - 0(Both) 2. Best Gaze (Lateral Gaze Paresis) - 0(Normal) 3. Visual Field Loss - 0(No visual loss) 4. Facial Palsy - 0(Normal) 5a. Left Arm: Motor (10-second hold) - 0(No drift) 5b. Right Arm: Motor (10-second hold) - 0(No drift) 6a. Left Leg: Motor (5-second hold - always test supine) - 0(No drift) 6b. Right Leg: Motor (5-second hold - always test supine) - 0(No drift) 7. Limb Ataxia (finger/nose \T\ heel/lazcano - test with eyes open) - 0(Absent) 8. Sensory Loss (pinprick arms/legs/face) - 0(Normal) 9. Best Language: Aphasia (description/naming/reading) - 0(No aphasia) Initials: eh3 Signatures: Dispatcher [employer] Kye Torres MD MD kdr Baxter, Heather, JAILENE DENT Mitzy Talavera RN RN 3
== END 2023-01-19 13:34 | disposition left against medical advice (07) ==
LOC: ER 11:46
DX: R51.9 Headache, unspecified (principal)
CPT/HCPCS: 99284

== ENCOUNTER 2023-02-03 09:39 | Emergency (ER) | payer OTHER ==
[2012-01-06 13:30] VITALS: BP 118/73
[2023-02-03 10:04] LABS: Absolute Lymphocytes (CBC) 1.2 K/uL (0.7-4.9); Hematocrit 33.3 % (36.0-45.0); MCV 82.9 fL (80-100); MPV 9.8 fL (7.6-11.3); RBC Red Blood Cell Count 4.01 M/uL (3.86-4.86)
[2023-02-03] MEDS ORDERED: NA CHLORIDE 0.9% 500 ML ONE (10:08)
[2023-02-03] MEDS ORDERED: NA CHLORIDE 0.9% 1,000 ML ONE (10:08)
[2023-02-03 10:11] LABS: Protime INR 0.96
[2023-02-03 10:33] LABS: Albumin 3.6 g/dL (3.4-5.0); Bilirubin Direct 0.1 mg/dL (0-0.2); Bilirubin Indirect, Calculated 0.4 mg/dL (0.2-0.8); Bilirubin Total 0.5 mg/dL (0.2-1.0); Protein, Total 7.5 g/dL (6.4-8.2); Troponin High Sensitivity 4.2 pg/mL (<58.9)
--- NOTE | 2023-02-03 10:37 | RAD REPORT ---
EXAM DESCRIPTION: RADChest Single View02/03/2023 10:23 am CLINICAL HISTORY: COUGH COMPARISON: Chest Single View dated 07/25/2022; Chest Single View dated 11/23/2021; Chest Single View dated 11/19/2021; Chest Single View dated 04/13/2020 TECHNIQUE: Portable AP view of the chest. FINDINGS: The lungs are clear. No pneumothorax or effusion. The cardiomediastinal contours are unre markable. IMPRESSION: No acute cardiopulmonary process.
[2023-02-03 10:59] LABS: Specific Gravity < 1.005 (1.005-1.030); Urine Bacteria Loaded /HPF (<20); Urine Bilirubin NEGATIVE (Negative); Urine Blood 3+ (OVER) (Negative); Urine Clarity Clear (Clear); Urine Color Colorless (Yellow); Urine Glucose NEGATIVE (Negative); Urine Protein 1+ (Negative); Urine Urobilinogen Normal (Normal)
[2023-02-03 11:02] LABS: Barbiturates NEGATIVE (NEGATIVE); Benzodiazepines NEGATIVE (NEGATIVE); Cocaine NEGATIVE (NEGATIVE); METHAMPHETAM POSITIVE (NEGATIVE); Methadone NEGATIVE (NEGATIVE); Opiates NEGATIVE (NEGATIVE); Phencyclidine NEGATIVE (NEGATIVE); THC Cannibis NEGATIVE (NEGATIVE)
--- NOTE | 2023-02-03 11:10 | EDPHYS ---
Physician Documentation [facility] Name: Evita Tomlin Age: 37 yrs Sex: Female : 1985 Arrival Date: 02/03/2023 Time: 09:39 Bed 17 Private MD: ED Physician Fabián Seth HPI: 02/03 10:57 This 37 yrs old Black Female presents to ER via EMS with complaints of General mily Weakness, High Blood Pressure. 10:57 The patient has elevated blood pressure and discovered this at home. mily 11:02 Onset: The symptoms/episode began/occurred today. Modifying factors: The symptoms are mily aggravated by activity, The symptoms are alleviated by remaining still. Severity of symptoms: At its worst the blood pressure was mild, in the emergency department the blood pressure is unchanged. The patient has experienced similar episodes in the past, multiple times. 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 - Social history:: Smoking status: Patient reports the use of cigarette tobacco products, smokes one-half pack cigarettes per day. ROS: 11:03 Positive for vaginal bleeding. mily 11:03 Constitutional: Negative for fever, chills, and weight loss, Eyes: Negative for injury, pain, redness, and discharge, ENT: Negative for injury, pain, and discharge, Neck: Negative for injury, pain, and swelling, Cardiovascular: Negative for chest pain, palpitations, and edema, Respiratory: Negative for shortness of breath, cough, wheezing, and pleuritic chest pain, Abdomen/GI: Negative for abdominal pain, nausea, vomiting, diarrhea, and constipation, Back: Negative for injury and pain, : Negative for injury, bleeding, discharge, and swelling, MS/Extremity: Negative for injury and deformity, Skin: Negative for injury, rash, and discoloration, Neuro: Negative for headache, weakness, numbness, tingling, and seizure, Psych: Negative for depression, anxiety, suicide ideation, homicidal ideation, and hallucinations, Allergy/Immunology: Negative for hives, rash, and allergies, Endocrine: Negative for neck swelling, polydipsia, polyuria, polyphagia, and marked weight changes. Exam: 11:03 Constitutional: This is a well developed, well nourished patient who is awake, alert, mily and in no acute distress. Head/Face: Normocephalic, atraumatic. Eyes: Pupils equal round and reactive to light, extra-ocular motions intact. Lids and lashes normal. Conjunctiva and sclera are non-icteric and not injected. Cornea within normal limits. Periorbital areas with no swelling, redness, or edema. ENT: Nares patent. No nasal discharge, no septal abnormalities noted. Tympanic membranes are normal and external auditory canals are clear. Oropharynx with no redness, swelling, or masses, exudates, or evidence of obstruction, uvula midline. Mucous membranes moist. Neck: Trachea midline, no thyromegaly or masses palpated, and no cervical lymphadenopathy. Supple, full range of motion without nuchal rigidity, or vertebral point tenderness. No Meningismus. Chest/axilla: Normal chest wall appearance and motion. Nontender with no deformity. No lesions are appreciated. Cardiovascular: Regular rate and rhythm with a normal S1 and S2. No gallops, murmurs, or rubs. Normal PMI, no JVD. No pulse deficits. Respiratory: Lungs have equal breath sounds bilaterally, clear to auscultation and percussion. No rales, rhonchi or wheezes noted. No increased work of breathing, no retractions or nasal flaring. Abdomen/GI: Soft, non-tender, with normal bowel sounds. No distension or tympany. No guarding or rebound. No evidence of tenderness throughout. Back: No spinal tenderness. No costovertebral tenderness. Full range of motion. Skin: Warm, dry with normal turgor. Normal color with no rashes, no lesions, and no evidence of cellulitis. MS/ Extremity: Pulses equal, no cyanosis. Neurovascular intact. Full, normal range of motion. Neuro: Awake and alert, GCS 15, oriented to person, place, time, and situation. Cranial nerves II-XII grossly intact. Motor strength 5/5 in all extremities. Sensory grossly intact. Cerebellar exam normal. Normal gait. Psych: Awake, alert, with orientation to person, place and time. Behavior, mood, and affect are within normal limits. 11:03 ECG was reviewed by the Attending Physician. Vital Signs: 09:38 BP 159 / 106; Pulse 94; Resp 18; Temp 98.3(O); Pulse Ox 100% on R/A; Weight 63.5 kg; db Height 4 ft. 11 in. ; Pain 8/10; 10:43 BP 171 / 109; Pulse 77; Resp 16; Pulse Ox 100% on R/A; db 11:30 BP 167 / 117; Pulse 85; Resp 16; Pulse Ox 100% on R/A; db 09:38 Body Mass Index 28.28 (63.50 kg, 149.86 cm) db 09:38 Pain Scale: Adult db MDM: 09:42 Patient medically screened. [facility] 11:03 Differential diagnosis: menometrorrhagia, menorrhea, urinary tract infection. Data [facility] reviewed: vital signs, nurses notes, EMS record, lab test result(s), EKG, radiologic studies, plain films. Consideration of Admission/Observation Escalation of care including admission/observation considered. I considered the following discharge prescriptions or medication management in the emergency department Medications were administered in the Emergency Department. See MAR. Independent interpretation of the following test(s) in the Emergency Department EKG: See my EKG interpretation above. Test considered but Not performed: Ultrasound no pelvic usg. Care significantly affected by the following chronic conditions: Hypertension, anxiety, nerve pain. Counseling: I had a detailed discussion with the patient and/or guardian regarding: the historical points, exam findings, and any diagnostic results supporting the discharge/admit diagnosis, lab results, radiology results, the need for outpatient follow up, for definitive care, a family practitioner, a psychiatrist. 02/03 09:44 Order name: Basic Metabolic Panel; Complete Time: 10:37 [facility] 02/03 09:44 Order name: CBC with Diff; Complete Time: 10:37 [facility] 02/03 09:44 Order name: LFT's; Complete Time: 10:37 [facility] 02/03 09:44 Order name: Magnesium; Complete Time: 10:37 [facility] 02/03 09:44 Order name: NT PRO-BNP; Complete Time: 10:37 [facility] 02/03 09:44 Order name: PT-INR; Complete Time: 10:37 [facility] 02/03 09:44 Order name: Troponin HS; Complete Time: 10:37 [facility] 02/03 09:44 Order name: Lipase; Complete Time: 10:37 [facility] 02/03 09:44 Order name: Urinalysis w/ reflexes; Complete Time: 11:01 [facility] 02/03 09:44 Order name: PREGU 02/03 09:44 Order name: UDS; Complete Time: 11:06 [facility] 02/03 09:44 Order name: D-Dimer; Complete Time: 10:37 [facility] 02/03 11:06 Order name: Test, Serum 02/03 09:44 Order name: XRAY Chest (1 view); Complete Time: 10:47 [facility] 02/03 09:44 Order name: EKG; Complete Time: 09:45 [facility] 02/03 09:44 Order name: Cardiac monitoring; Complete Time: 10:09 [facility] 02/03 09:44 Order name: EKG - Nurse/Tech; Complete Time: 10:09 [facility] 02/03 09:44 Order name: IV Saline Lock; Complete Time: 10:09 [facility] 02/03 09:44 Order name: Labs collected and sent; Complete Time: 10:09 [facility] 02/03 09:44 Order name: O2 Per Protocol; Complete Time: 10: [facility] 02/03 09:44 Order name: O2 Sat Monitoring; Complete Time: 10: [facility] 02/03 10:59 Order name: PO challenge: gatorade; Complete Time: 12:17 [facility] EC:03 Rate is 88 beats/min. Rhythm is regular. QRS [place] is Normal. MI interval is normal. QRS imly interval is normal. QT interval is normal. No Q waves. T waves are Normal. No ST changes noted. Clinical impression: NSR w/ Non-specific ST/T Changes and No evidence of ischemia. Interpreted by me. Reviewed by me. Administered Medications: 10:05 Drug: NS 0.9% IV 1000 ml Route: IV; Rate: 125 ml/hr; Site: right antecubital; db 12:05 Follow up: Response: No adverse reaction; IV Status: Completed infusion; IV Intake: db 250ml 10:09 Drug: NS 0.9% IV 500 ml Route: IV; Rate: bolus; Site: right antecubital; db 12:05 Follow up: Response: No adverse reaction; IV Status: Completed infusion; IV Intake: db 500ml 12:04 Drug: Norvasc PO 10 mg Route: PO; db 12:15 Follow up: Response: No adverse reaction db 12:04 Drug: Rocephin IV 1 grams Route: IV; Rate: per protocol; Site: right antecubital; db 12:14 Follow up: Response: No adverse reaction; IV Status: Completed infusion; IV Intake: 50mldb 12:05 Drug: Potassium PO Effervescent Tablet 50 mEq Route: PO; db 12:15 Follow up: Response: No adverse reaction db Disposition Summary: 02/03/23 11:09 Discharge Ordered Location: Home mily Problem: new mily Symptoms: have improved mily Condition: Stable mily Diagnosis - Essential (primary) hypertension mily - Hypokalemia mily - UTI/ Urinary tract infection, site not specified mily - Abuse of other non-psychoactive substances mily Followup: mily - With: Private Physician - When: 2 - 3 days - Reason: Recheck today's complaints, Continuance of care, Re-evaluation by your physician Followup: mily - With: Alberto Castro MD - When: 2 - 3 days - Reason: Recheck today's complaints, Continuance of care, Re-evaluation by your physician Discharge Instructions: - Discharge Summary Sheet mily - Potassium Content of Foods mily - Dysuria mily - Hypertension, Adult mily - Substance Use Disorder mily - Urinary Tract Infection, Adult mily - Supporting Someone With an Addiction mily - Urinary Tract Infection, Adult, [id number] mily - Hypertension, Adult, [id number] mily - How to Take Your Blood Pressure, [id number] mily - Hypokalemia mily - Managing Your Hypertension mily Forms: - Medication Reconciliation Form mily - Thank You Letter mily - Antibiotic Education mily - Prescription Opioid Use mily - Work release form eb Prescriptions: - Cephalexin 500 mg Oral Capsule - take 1 capsule by ORAL route every 6 hours for 7 days; 28 capsule; Refills: 0, mily Product Selection Permitted - Norvasc 5 mg Oral Tablet - take 1 tablet by ORAL route once daily; 20 tablet; Refills: 0, Product mily Selection Permitted Signatures: Dispatcher [employer] Fabián Nuñez MD MD cha Mickail, Joel, PA PA jmm Benton, Danielle, RN RN db
--- NOTE | 2023-02-03 11:10 | ER ---
Nurse's Notes [facility] Name: Evita Tomlin Age: 37 yrs Sex: Female : 1985 Arrival Date: 02/03/2023 Time: 09:39 Bed 17 Private MD: Diagnosis: Essential (primary) hypertension;Hypokalemia;UTI/ Urinary tract infection, site not specified;Abuse of other non-psychoactive substances Presentation: 02/03 09:38 Chief complaint: EMS states: patient is coming from home with weakness and light db headed, left head pressure and left chest pressure. Patient reports she is non compliant with BP medications. Coronavirus screen: Vaccine status: Patient reports receiving the 2nd dose of the covid vaccine. Client denies travel out of the [place] in the last 14 days. At this time, the client does not indicate any symptoms associated with coronavirus-19. Ebola Screen: Patient negative for fever greater than or equal to 101.5 degrees Fahrenheit, and additional compatible Ebola Virus Disease symptoms Patient denies exposure to infectious person. Patient denies travel to an Ebola-affected area in the 21 days before illness onset. No symptoms or risks identified at this time. Initial Sepsis Screen: Does the patient meet any 2 criteria? No. Patient's initial sepsis screen is negative. Does the patient have a suspected source of infection? No. Patient's initial sepsis screen is negative. Risk Assessment: Do you want to hurt yourself or someone else? Patient reports no desire to harm self or others. Onset of symptoms was February 03, 2023. Care prior to arrival: Medication(s) given: ASA, 81 mg, x 4. 09:38 Method Of Arrival: EMS: [facility] db 09:38 Acuity: KVNG 2 db Triage Assessment: 09:46 General: Appears in no apparent distress. uncomfortable, Behavior is cooperative, db anxious. Pain: Complains of pain in head and chest. 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 - Social history:: Smoking status: Patient reports the use of cigarette tobacco products, smokes one-half pack cigarettes per day. Screenin:16 [facility] ED Fall Risk Assessment (Adult) History of falling in the last 3 months, db including since admission No falls in past 3 months (0 pts) Confusion or Disorientation No (0 pts) Intoxicated or Sedated No (0 pts) Impaired Gait No (0 pts) Mobility Assist Device Used No (0 pt) Altered Elimination No (0 pt) Score/Fall Risk Level 0 - 2 = Low Risk Oriented to surroundings, Maintained a safe environment. Abuse screen: Denies threats or abuse. Denies injuries from another. Nutritional screening: No deficits noted. Tuberculosis screening: No symptoms or risk factors identified. Assessment: 10:00 Reassessment: Patient appears in no apparent distress at this time. Patient and/or db family updated on plan of care and expected duration. Pain level reassessed. Patient is alert, oriented x 3, equal unlabored respirations, skin warm/dry/pink. 10:00 Reassessment: Patient appears in no apparent distress at this time. Patient and/or db family updated on plan of care and expected duration. Pain level reassessed. Patient is alert, oriented x 3, equal unlabored respirations, skin warm/dry/pink. General: Appears in no apparent distress. comfortable, Behavior is calm. Neuro: Level of Consciousness is awake, alert, confused. 12:16 Reassessment: Patient appears in no apparent distress at this time. Patient and/or db family updated on plan of care and expected duration. Pain level reassessed. Patient is alert, oriented x 3, equal unlabored respirations, skin warm/dry/pink. 12:17 Reassessment: patient tolerated PO challenge. db Vital Signs: 09:38 BP 159 / 106; Pulse 94; Resp 18; Temp 98.3(O); Pulse Ox 100% on R/A; Weight 63.5 kg; db Height 4 ft. 11 in. ; Pain 8/10; 10:43 BP 171 / 109; Pulse 77; Resp 16; Pulse Ox 100% on R/A; db 11:30 BP 167 / 117; Pulse 85; Resp 16; Pulse Ox 100% on R/A; db 09:38 Body Mass Index 28.28 (63.50 kg, 149.86 cm) db 09:38 Pain Scale: Adult db ED Course: 09:40 Patient arrived in ED. am2 09:42 Rolo, Fabián, MD is Attending Physician. mily 09:43 Isis Garcia, JAILENE is Primary Nurse. db 09:46 Triage completed. db 09:46 Arm band placed on Patient placed in an exam room. db 10:17 Lipase Sent. mm9 10:17 Basic Metabolic Panel Sent. mm9 10:17 LFT's Sent. mm9 10:18 Patient has correct armband on for positive identification. Placed in gown. Bed in low mm9 position. Call light in reach. Side rails up X2. Warm blanket given. Client placed on continuous cardiac and pulse oximetry monitoring. NIBP monitoring applied. vehicle monitor technician on. Pulse ox on. NIBP on. 10:18 Troponin HS Sent. mm9 10:18 NT PRO-BNP Sent. mm9 10:18 Magnesium Sent. mm9 10:18 XRAY Chest (1 view) Sent. mm9 10:19 Initial lab(s) drawn, by ED staff, sent to lab. EKG done, by ED staff, reviewed by reinaldo Seth MD. Inserted saline lock: 20 gauge in right forearm, using aseptic technique. Blood collected. 10:24 XRAY Chest (1 view) In Process Unspecified. EDMS 10:34 PREGU Sent. mm9 10:34 Urinalysis w/ reflexes Sent. mm9 10:35 UDS Sent. mm9 11:07 Alberto Castro MD is Referral Physician. mily 12:16 No provider procedures requiring assistance completed. IV discontinued, intact, db bleeding controlled, No redness/swelling at site. Administered Medications: 10:05 Drug: NS 0.9% IV 1000 ml Route: IV; Rate: 125 ml/hr; Site: right antecubital; db 12:05 Follow up: Response: No adverse reaction; IV Status: Completed infusion; IV Intake: db 250ml 10:09 Drug: NS 0.9% IV 500 ml Route: IV; Rate: bolus; Site: right antecubital; db 12:05 Follow up: Response: No adverse reaction; IV Status: Completed infusion; IV Intake: db 500ml 12:04 Drug: Norvasc PO 10 mg Route: PO; db 12:15 Follow up: Response: No adverse reaction db 12:04 Drug: Rocephin IV 1 grams Route: IV; Rate: per protocol; Site: right antecubital; db 12:14 Follow up: Response: No adverse reaction; IV Status: Completed infusion; IV Intake: 50mldb 12:05 Drug: Potassium PO Effervescent Tablet 50 mEq Route: PO; db 12:15 Follow up: Response: No adverse reaction db Medication: 12:17 VIS not applicable for this client. db Intake: 12:05 IV: 500ml; Total: 500ml. db 12:05 IV: 250ml; Total: 750ml. db 12:14 IV: 50ml; Total: 800ml. db Outcome: 11:09 Discharge ordered by MD. minor 12:16 Discharged to home ambulatory. db 12:16 Condition: stable 12:16 Instructed on discharge instructions, follow up and referral plans. Prescriptions given X 2. 12:19 Patient left the ED. Signatures: Dispatcher [employer] EDFabián Espinoza MD MD cha Baxter, Heather, RN RN Isi Clements am2 Isis Garcia RN RN Barbara Huddleston mm9 Corrections: (The following items were deleted from the chart) 09:47 09:38 Chief complaint: EMS states: patient is coming from home with weakness and light db headed, left head pressure and left chest pressure db
[2023-02-03] MEDS ORDERED: CEFTRIAXONE 1000 MG/VIAL ONE (11:50)
[2023-02-03] MEDS ORDERED: AMLODIPINE 10 MG TAB ONE (11:50)
[2023-02-03] MEDS ORDERED: POTASSIUM 25 MEQ EFFERV TAB ONE (11:50)
[2023-02-03] MEDS ORDERED: NA CHLORIDE 0.9% 50 ML ONE (11:50)
[2023-02-03 12:14] LABS: Specific Gravity < 1.005 (1.005-1.030)
--- NOTE | 2023-02-07 07:17 | EKG ---
Test Date: 2023-02-03 Test Time: 10:09:00 Director New Product: JOHN MEASUREMENT RESULTS: Intervals: Rate: 88 DC: 138 QRSD: 88 QT: 378 QTc: 457 [place]ell: P: 55 DC: 138 QRS: 6 T: 43 INTERPRETIVE STATEMENTS: Normal sinus rhythm Normal ECG Compared to ECG 07/25/2022 18:12:56 No significant changes Electronically Signed On 02-07-23 07:07:58 CDT by Gregg Chinchilla
== END 2023-02-03 12:19 | disposition home or self-care (01) ==
LOC: ER 09:39
DX: N39.0 Urinary tract infection, site not specified (principal); E87.6 Hypokalemia; F55.8 Abuse of other non-psychoactive substances; I10 Essential (primary) hypertension; F17.210 Nicotine dependence, cigarettes, uncomplicated
CPT/HCPCS: 96361; 93005; 85025; 81001; 80048; 36415; 83735; 84703; 81025; 85610; 85379; 80076; 84484; 83690; 83880; 80307; 71045; 96374; 99285; J7040; J7030; J0696

== ENCOUNTER 2023-03-01 21:11 | Emergency (ER) | payer OTHER ==
--- NOTE | 2023-03-01 22:21 | EDPHYS ---
Physician Documentation [facility] Name: Evita Tomlin Age: 37 yrs Sex: Female : 1985 Arrival Date: 03/01/2023 Time: 21:11 Bed 16 Private MD: ED Physician Quinn Welch HPI: 03/01 21:23 This 37 yrs old Black Female presents to ER via Unassigned with complaints of Headache. sp4 22:16 37-year-old female with past medical history of hypertension presents with EMS for sp4 complaint of a headache and elevated blood pressure. Patient was picked up while walking on the street by EMS. Patient states that she should be on Norvasc 10 mg p.o. daily but she is noncompliant at this time. Patient denied any other symptoms. She states she is on her menstrual period at this time. Patient has history of ectopic with prior ovarian tube resection.. 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 Last tetanus immunization: > 10 years ago Flu vaccine is not up to date. - Family history:: not pertinent. - Social history:: Smoking status: Patient/guardian denies using tobacco, Stopped _ months ago 3 Patient/guardian denies using alcohol, street drugs. ROS: 22:16 Constitutional: Negative for fever, chills, and weight loss, Eyes: Negative for injury, sp4 pain, redness, and discharge, Neuro: Negative for weakness, numbness, tingling, and seizure, positive for headache. Psych: Negative for depression, anxiety. 22:16 All other systems are negative. Exam: 22:16 Constitutional: This is a well developed, well nourished patient who is awake, alert, sp4 and in no acute distress. Head/Face: Normocephalic, atraumatic. Eyes: Pupils equal round and reactive to light, extra-ocular motions intact. Lids and lashes normal. Conjunctiva and sclera are not injected. Cornea within normal limits. Periorbital areas with no swelling, redness, or edema. ENT: Nares patent. No nasal discharge, no septal abnormalities noted. Tympanic membranes are normal and external auditory canals are clear. Oropharynx with no redness, swelling, or masses, exudates, or evidence of obstruction, uvula midline. Mucous membranes moist. Neck: Trachea midline, no thyromegaly or masses palpated, and no cervical lymphadenopathy. Supple, full range of motion without nuchal rigidity, or vertebral point tenderness. Chest/axilla: Normal chest wall appearance and motion. Nontender with no deformity. No lesions are appreciated. Cardiovascular: Regular rate and rhythm with a normal S1 and S2. No gallops, murmurs, or rubs. Normal PMI, no JVD. No pulse deficits. Respiratory: Lungs have equal breath sounds bilaterally, clear to auscultation and percussion. No rales, rhonchi or wheezes noted. No increased work of breathing, no retractions or nasal flaring. Abdomen/GI: Soft, non-tender, with normal bowel sounds. No distension or tympany. No guarding or rebound. No evidence of tenderness throughout. Back: No spinal tenderness. No costovertebral tenderness. Skin: Warm, dry with normal turgor. Normal color with no rashes, no lesions, and no evidence of cellulitis. MS/ Extremity: Pulses equal, no cyanosis. Neurovascular intact. Full, normal range of motion. Neuro: Awake and alert, GCS 15, oriented to person, place, time, and situation. Cranial nerves II-XII grossly intact. Motor strength 5/5 in all extremities. Sensory grossly intact. Psych: Awake, alert, with orientation to person, place and time. Behavior, mood, and affect are within normal limits Vital Signs: 21:23 BP 141 / 117; Pulse 81; Resp 16; Temp 97.9; Pulse Ox 100% on R/A; Weight 56.7 kg; pf1 Height 4 ft. 11 in. ; Pain 10/10; 22:00 BP 175 / 93; Pulse 76; Resp 18; Pulse Ox 100% on R/A; pf1 23:00 BP 140 / 79; Pulse 83; Resp 18; Temp 98(O); Pulse Ox 100% on R/A; Pain 4/10; pf1 21:23 Body Mass Index 25.25 (56.70 kg, 149.86 cm) pf1 21:23 Pain Scale: Adult pf1 23:00 Pain Scale: Adult pf1 Brittany Coma Score: 22:16 Eye Response: spontaneous(4). Motor Response: obeys commands(6). Verbal Response: sp4 oriented(5). Total: 15. MDM: 21:30 Patient medically screened. sp4 22:16 Differential diagnosis: migraine, sinusitis, tension headache, vasomotor headache. Data sp4 reviewed: vital signs, nurses notes, old medical records. 22:25 ED course: Patient's condition has improved she is stable for discharge at this time. sp4 03/01 21:28 Order name: Test, Serum; Complete Time: 22:16 sp4 Administered Medications: 22:30 Drug: Ketorolac IVP 30 mg Route: IVP; Site: right antecubital; pf1 23:20 Follow up: Response: No adverse reaction; Marked relief of symptoms; Nausea is decreasedpf1 22:30 Drug: metoCLOPramide IVP 10 mg Route: IVP; Site: right antecubital; pf1 23:20 Follow up: Response: No adverse reaction; Marked relief of symptoms pf1 22:30 Drug: cloNIDine PO 0.1 mg Route: PO; pf1 23:20 Follow up: Response: No adverse reaction; Marked relief of symptoms; Blood pressure is pf1 lowered 22:30 Drug: diphenhydrAMINE IVP 25 mg Route: IVP; Site: right antecubital; pf1 23:19 Follow up: Response: No adverse reaction; Marked relief of symptoms; Pain is decreased pf1 Disposition Summary: 03/01/23 22:20 Discharge Ordered Location: Home sp4 Problem: new sp4 Symptoms: have improved sp4 Condition: Stable sp4 Diagnosis - Tension-type headache sp4 - Renovascular hypertension sp4 Followup: sp4 - With: Private Physician - When: 7 - 10 days - Reason: Recheck today's complaints Discharge Instructions: - Discharge Summary Sheet sp4 - Hypertension, Adult sp4 Prescriptions: - Norvasc 10 mg Oral Tablet - take 1 tablet by ORAL route once daily; 30 tablet; Refills: 0, Product sp4 Selection Permitted Signatures: Dispatcher [employer] Chante Pa RN RN pf1 Potepalov, Quinn, MD MD sp4
--- NOTE | 2023-03-01 22:21 | ER ---
Nurse's Notes [facility] Name: Evita Tomlin Age: 37 yrs Sex: Female : 1985 Arrival Date: 03/01/2023 Time: 21:11 Bed 16 Private MD: Diagnosis: Tension-type headache;Renovascular hypertension Presentation: 03/01 21:23 Chief complaint: Patient states: right side and posterior headache pain of 10 with pf1 elevated BP, body aches and dizziness,onset 3 days with C/O soft spots to generalized head for months. Patient stated is currently out of BP medication. Coronavirus screen: Vaccine status: Patient reports being unvaccinated. Client denies travel out of the [place] in the last 14 days. Client presents with at least one sign or symptom that may indicate coronavirus-19. Standard/surgical mask placed on the client. Ebola Screen: Patient negative for fever greater than or equal to 101.5 degrees Fahrenheit, and additional compatible Ebola Virus Disease symptoms. Initial Sepsis Screen: Does the patient meet any 2 criteria? No. Patient's initial sepsis screen is negative. Does the patient have a suspected source of infection? No. Patient's initial sepsis screen is negative. Risk Assessment: Do you want to hurt yourself or someone else? Patient reports no desire to harm self or others. 21:23 Method Of Arrival: EMS: [facility] pf1 21:23 Acuity: KVNG 3 pf1 Triage Assessment: 21:23 General: Appears in no apparent distress. comfortable, well groomed, well developed, pf1 Behavior is calm, cooperative, appropriate for age, quiet. 21:23 Pain: Complains of pain in head and body aches Pain currently is 10 out of 10 on a pain pf1 scale. Pain began 2-3 days ago. EENT: No deficits noted. No signs and/or symptoms were reported regarding the EENT system. Neuro: No deficits noted. Level of Consciousness is awake, alert, obeys commands, Oriented to person, place, time, situation, Reports headache in right occipital area, since 3 days Patient C/O soft spots to head,onset chronic. 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 Cardiovascular: No deficits noted. Capillary refill < 3 seconds Patient's skin is warm and dry. Respiratory: No deficits noted. Airway is patent Respiratory effort is even, unlabored, Respiratory pattern is regular, symmetrical. GI: No deficits noted. No signs and/or symptoms were reported involving the gastrointestinal system. : No deficits noted. No signs and/or symptoms were reported regarding the genitourinary system. Derm: No deficits noted. No signs and/or symptoms reported regarding the dermatologic system. Musculoskeletal: No deficits noted. No signs and/or symptoms reported regarding the musculoskeletal system. 21:23 Headache History: The patient has had previous headaches. 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 Last tetanus immunization: > 10 years ago Flu vaccine is not up to date. - Family history:: not pertinent. - Social history:: Smoking status: Patient/guardian denies using tobacco, Stopped _ months ago 3 Patient/guardian denies using alcohol, street drugs. Screenin:23 [facility] ED Fall Risk Assessment (Adult) History of falling in the last 3 months, pf1 including since admission No falls in past 3 months (0 pts) Confusion or Disorientation No (0 pts) Intoxicated or Sedated No (0 pts) Impaired Gait No (0 pts) Mobility Assist Device Used No (0 pt) Altered Elimination No (0 pt) Score/Fall Risk Level 0 - 2 = Low Risk Oriented to surroundings, Maintained a safe environment, Educated pt \\T\\ family on fall prevention, incl call for assistance when getting out of bed, Assessed \\T\\ reinforced patient's understanding of fall precautions, Provided non-skid footwear, Hourly rounding (assess needs \\T\\ fall precautionary measures) done, Used ambulatory aids as needed (educated on \\T\\ assisted with), Used gait belt as appropriate. 21:23 Abuse screen: Denies threats or abuse. Nutritional screening: No deficits noted. pf1 Tuberculosis screening: No symptoms or risk factors identified. Assessment: 21:30 General: Appears in no apparent distress. comfortable, well groomed, well developed, pf1 Behavior is calm, cooperative, appropriate for age, quiet. 21:30 Pain: Complains of pain in head and body aches Pain currently is 10 out of 10 on a pain pf1 scale. Pain began 2-3 days ago. Neuro: Reports dizziness, headache in right occipital area, 3 days. Patient stated is currently out of her BP medication. Cardiovascular: Reports Capillary refill < 3 seconds Patient's skin is warm and dry. Respiratory: No deficits noted. Airway is patent Respiratory effort is even, unlabored, Respiratory pattern is regular, symmetrical. GI: No deficits noted. No signs and/or symptoms were reported involving the gastrointestinal system. : No deficits noted. No signs and/or symptoms were reported regarding the genitourinary system. EENT: No deficits noted. No signs and/or symptoms were reported regarding the EENT system. Derm: Reports Patient stated soft spots to scalp,onset chronic for "months". 22:30 Reassessment: Patient appears in no apparent distress at this time. Patient and/or pf1 family updated on plan of care and expected duration. Pain level reassessed. Patient is alert, oriented x 3, equal unlabored respirations, skin warm/dry/pink. Patient states feeling better. Patient states symptoms have improved. 23:30 Reassessment: Patient appears in no apparent distress at this time. Patient is alert, pf1 oriented x 3, equal unlabored respirations, skin warm/dry/pink. Patient states feeling better. Patient states symptoms have improved. Vital Signs: 21:23 BP 141 / 117; Pulse 81; Resp 16; Temp 97.9; Pulse Ox 100% on R/A; Weight 56.7 kg; pf1 Height 4 ft. 11 in. ; Pain 10/10; 22:00 BP 175 / 93; Pulse 76; Resp 18; Pulse Ox 100% on R/A; pf1 23:00 BP 140 / 79; Pulse 83; Resp 18; Temp 98(O); Pulse Ox 100% on R/A; Pain 4/10; pf1 21:23 Body Mass Index 25.25 (56.70 kg, 149.86 cm) pf1 21:23 Pain Scale: Adult pf1 23:00 Pain Scale: Adult pf1 Brittany Coma Score: 22:16 Eye Response: spontaneous(4). Motor Response: obeys commands(6). Verbal Response: sp4 oriented(5). Total: 15. ED Course: 09:45 Initial lab(s) drawn, by me, sent to lab. Inserted saline lock: 20 gauge in right jw7 antecubital area, using aseptic technique. 21:21 Patient arrived in ED. pf1 21:23 Quinn Welch MD is Attending Physician. sp4 21:23 Arm band placed on right wrist. pf1 21:29 Triage completed. pf1 21:30 Patient has correct armband on for positive identification. Bed in low position. Call pf1 light in reach. Side rails up X 1. 21:47 Warm blanket given. jw7 23:25 No provider procedures requiring assistance completed. IV discontinued, intact, pf1 bleeding controlled, No redness/swelling at site. Pressure dressing applied. Administered Medications: 22:30 Drug: Ketorolac IVP 30 mg Route: IVP; Site: right antecubital; pf1 23:20 Follow up: Response: No adverse reaction; Marked relief of symptoms; Nausea is decreasedpf1 22:30 Drug: metoCLOPramide IVP 10 mg Route: IVP; Site: right antecubital; pf1 23:20 Follow up: Response: No adverse reaction; Marked relief of symptoms pf1 22:30 Drug: cloNIDine PO 0.1 mg Route: PO; pf1 23:20 Follow up: Response: No adverse reaction; Marked relief of symptoms; Blood pressure is pf1 lowered 22:30 Drug: diphenhydrAMINE IVP 25 mg Route: IVP; Site: right antecubital; pf1 23:19 Follow up: Response: No adverse reaction; Marked relief of symptoms; Pain is decreased pf1 Medication: 21:30 VIS not applicable for this client. pf1 Outcome: 22:20 Discharge ordered by . sp4 23:25 Discharged to home via wheelchair. pf1 23:25 Condition: improved 23:25 Discharge instructions given to patient, Instructed on discharge instructions, follow up and referral plans. Demonstrated understanding of instructions, follow-up care. 23:25 Patient left the ED. pf1 Signatures: Carol Ludwig Pamala, RN RN pf1 Quinn Welch MD MD sp4 Corrections: (The following items were deleted from the chart) 22:35 22:34 Inserted saline lock: 20 gauge in right antecubital area, using aseptic [facility] technique. Blood collected. [facility] 22:36 22:34 Initial lab(s) drawn, by me, sent to lab. jw7 jw7 36 22:34 Inserted saline lock: 20 gauge in right antecubital area, using aseptic jw7 technique. Blood collected. jw7 03/02 00:55 03/01 09:47 Warm blanket given. jw7 jw7 03/02 02:33 03/01 23:28 Patient left the ED. pf1 pf1
[2023-03-01] MEDS ORDERED: METOCLOPRAMIDE 10 MG/2mL INJ ONE (22:32)
[2023-03-01] MEDS ORDERED: cloNIDine HCL 0.1 MG TAB ONE (22:32)
[2023-03-01] MEDS ORDERED: DIPHENHYDRAMINE 50 MG/ML VIAL ONE (22:33)
[2023-03-01] MEDS ORDERED: KETOROLAC 30 MG/ML INJ ONE (22:33)
[2023-03-01 23:32] VITALS: O2SAT 100
[2023-03-01 23:33] VITALS: BP 140/79; TEMP 98
== END 2023-03-01 23:28 | disposition home or self-care (01) ==
LOC: ER 21:11
DX: G44.209 Tension-type headache, unspecified, not intractable (principal); I15.0 Renovascular hypertension; I10 Essential (primary) hypertension
CPT/HCPCS: 36415; 84703; 96375; 96374; 99284; J2765; J1200

== ENCOUNTER 2023-08-15 14:53 | Emergency (ER) | payer OTHER, SELFPAY ==
--- OUTSIDE RECORDS SUMMARY | 2023-08-15 14:56 | XMS REPORT | Continuity of Care Document ---
Author Name Unknown Address [address] [place] [address] [employer] Address [address] [place] [address] Care Team Providers Care Licsw Name Role Phone [email or web address] Attending Clinician Unavaila ble [email or web address] Admitting Clinician Unavaila ble Encounters Start Date/Time End Date/Time Encounter Type Admission Type Attending Clinicians Care Facility Care Department Encounter ID Source 2023-07-11 00:00:00 2023-07-11 00:00:00 Outpatient [email or web address] [facility] [id number] [facility]
--- NOTE | 2023-08-15 16:44 | ER ---
Nurse's Notes [facility] Name: Evita Tomlin Age: 38 yrs Sex: Female : 1985 Arrival Date: 08/15/2023 Time: 14:53 Bed DIS3 Private MD: Diagnosis: Presentation: 08/15 15:01 Chief complaint: EMS states: HEADACHE X 1 WEEK. Coronavirus screen: Client denies db travel out of the [place] in the last 14 days. At this time, the client does not indicate any symptoms associated with coronavirus-19. Ebola Screen: Patient negative for fever greater than or equal to 101.5 degrees Fahrenheit, and additional compatible Ebola Virus Disease symptoms Patient denies exposure to infectious person. Patient denies travel to an Ebola-affected area in the 21 days before illness onset. No symptoms or risks identified at this time. Risk Assessment: Do you want to hurt yourself or someone else? Patient reports no desire to harm self or others. Onset of symptoms was August 15, 2023. 15:01 Method Of Arrival: EMS: [facility] db 15:01 Acuity: KVNG 3 db 15:03 Initial Sepsis Screen: Does the patient meet any 2 criteria? No. Patient's initial db sepsis screen is negative. Does the patient have a suspected source of infection? No. Patient's initial sepsis screen is negative. Triage Assessment: 15:02 Headache History: The patient has had previous headaches and this one is similar to db previous episodes. General: Appears in no apparent distress. comfortable, Behavior is calm, cooperative. Pain: Complains of pain in head Pain began gradually, Also complains of no other associated symptoms. Neuro: Level of Consciousness is awake, alert, obeys commands, Oriented to person, place, time, situation. Respiratory: Airway is patent Respiratory effort is even, unlabored, Respiratory pattern is regular, symmetrical. Historical: - Allergies: 15:01 No Known Allergies; db - PMHx: 15: Anxiety; Hypertension; nerve pain; db - PSHx: 15:01 ectopic ; db - Immunization history:: Adult Immunizations unknown. Assessment: 16:07 Reassessment: Patient appears in no apparent distress at this time. Patient and/or db family updated on plan of care and expected duration. Pain level reassessed. Patient is alert, oriented x 3, equal unlabored respirations, skin warm/dry/pink. 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 IN NAD. General: Appears in no apparent distress. comfortable, Behavior is calm, cooperative. Neuro: Level of Consciousness is awake, alert, obeys commands, Oriented to person, place, time, situation. 16:43 Reassessment: not in lobby or restroom when called into ED for MD toro. ll1 Vital Signs: 15:03 BP 163 / 111; Pulse 83; Resp 18; Pulse Ox 99% ; db 15:40 Temp 98.1(TE); db ED Course: 15:00 Patient arrived in ED. db 15:01 Stu Finn MD is Attending Physician. rt 15:01 Triage completed. db 15:02 Arm band placed on. db Administered Medications: No medications were administered Outcome: 16:43 Patient left the ED. ll1 Signatures: Nelsy Palomares RN RN ll1 Isis Garcia RN RN db Stu Finn MD MD rt
[2023-08-15 19:01] VITALS: BP 163/111; O2SAT 99
[2023-08-15 19:02] VITALS: TEMP 98.1
--- NOTE | 2023-08-16 16:44 | EDPHYS ---
Physician Documentation [facility] Name: Evita Tomlin Age: 38 yrs Sex: Female : 1985 Arrival Date: 08/15/2023 Time: 14:53 Bed DIS3 Private MD: ED Physician Stu Finn Historical: - Allergies: 08/15 15:01 No Known Allergies; db - PMHx: 15:01 Anxiety; Hypertension; nerve pain; db - PSHx: 15:01 ectopic ; db - Immunization history:: Adult Immunizations unknown. Vital Signs: 15:03 BP 163 / 111; Pulse 83; Resp 18; Pulse Ox 99% ; db 15:40 Temp 98.1(TE); db MDM: 17:20 ED course: Patient eloped prior to my evaluation of the patient. rt Administered Medications: No medications were administered Disposition Summary: 08/15/23 16:43 Eloped Notes: Disposition: post triage evaluation and consult ll1 Reason: unknown ll1 Signatures: Nelsy Palomares RN RN ll1 Isis Garcia RN RN db Stu Finn MD MD rt
== END 2023-08-15 16:43 | disposition left against medical advice (07) ==
LOC: ER 14:53
DX: R51.9 Headache, unspecified (principal)
CPT/HCPCS: 99282

== ENCOUNTER 2024-02-21 11:37 | Emergency (ER) | payer OTHER, SELFPAY ==
--- OUTSIDE RECORDS SUMMARY | 2024-02-21 11:39 | XMS REPORT | Continuity of Care Document ---
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 [id number] [facility]
[2024-02-21] MEDS ORDERED: NA CHLORIDE 0.9% 1,000 ML ONE (11:48)
[2024-02-21] MEDS ORDERED: DIAZEPAM 5 MG TABLET ONE (11:48)
--- NOTE | 2024-02-21 12:40 | ER ---
Nurse's Notes [facility] Name: Evita Tomlin Age: 38 yrs Sex: Female : 1985 Arrival Date: 02/21/2024 Time: 11:37 Bed 7 Private MD: Diagnosis: Headache;Anxiety disorder, unspecified Presentation: 02/20 11:39 Chief complaint: EMS states: "toned out for headache that started today and anxiety.". mb9 Coronavirus screen: At this time, the client does not indicate any symptoms associated with coronavirus-19. Ebola Screen: No symptoms or risks identified at this time. Initial Sepsis Screen: Does the patient meet any 2 criteria? No. Patient's initial sepsis screen is negative. Does the patient have a suspected source of infection? No. Patient's initial sepsis screen is negative. Risk Assessment: Do you want to hurt yourself or someone else? Patient reports no desire to harm self or others. Onset of symptoms was February 21, 2024. 11:39 Method Of Arrival: EMS: [facility] 9 11:39 Acuity: KVNG 3 mb9 Triage Assessment: 11:40 General: Appears uncomfortable, Behavior is anxious, uncooperative. Pain: Complains of mb9 pain in head Quality of pain is described as throbbing, Pain began suddenly. EENT: No signs and/or symptoms were reported regarding the EENT system. Neuro: Ragland Agitation-Sedation Scale (RASS): 0 - Alert and Calm Level of Consciousness is awake, alert, obeys commands, Oriented to person, place, time, situation, Appropriate for age Reports numbness. Cardiovascular: Patient's skin is warm and dry. Respiratory: Airway is patent Respiratory effort is even, unlabored, Respiratory pattern is regular, symmetrical. GI: Abdomen is round non-distended. : No signs and/or symptoms were reported regarding the genitourinary system. Derm: Skin is pink, warm \\T\\ dry. Musculoskeletal: Range of motion: intact in all extremities. 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 - Infectious Disease History:: Denies. - Social history:: Smoking status: Patient denies any tobacco usage or history of. - Family history:: not pertinent. - Hospitalizations: : No recent hospitalization is reported. Screenin:42 [facility] ED Fall Risk Assessment (Adult) History of falling in the last 3 months, mb9 including since admission No falls in past 3 months (0 pts) Confusion or Disorientation No (0 pts) Intoxicated or Sedated No (0 pts) Impaired Gait No (0 pts) Mobility Assist Device Used No (0 pt) Altered Elimination No (0 pt) Score/Fall Risk Level 0 - 2 = Low Risk Oriented to surroundings, Maintained a safe environment, Educated pt \\T\\ family on fall prevention, incl call for assistance when getting out of bed. Abuse screen: Denies threats or abuse. Nutritional screening: No deficits noted. Tuberculosis screening: No symptoms or risk factors identified. Assessment: 11:38 Reassessment: pt refusing IV, blood work, and medication at this time. ERP notified. mb9 12:01 Reassessment: pt states, "I want to leave. I don't want to be here anymore." ERP mb9 notified. Vital Signs: 11:39 BP 158 / 108; Pulse 90; Resp 18; Temp 98; Pulse Ox 100% ; Weight 65.77 kg; Height 4 ft. mb9 11 in. ; 11:39 Body Mass Index 29.29 (65.77 kg, 149.86 cm) mb9 Brittany Coma Score: 12:38 Eye Response: spontaneous(4). Motor Response: obeys commands(6). Verbal Response: rn oriented(5). Total: 15. ED Course: 11:38 Patient arrived in ED. rn 11:39 Kelby Braden MD is Attending Physician. rn 11:39 Maile Chu RN is Primary Nurse. mb9 11:40 Triage completed. mb9 11:40 Arm band placed on. mb9 11:43 Placed in gown. Bed in low position. Call light in reach. Side rails up X 1. Provided mb9 Education on: press call light if needing anything. Client placed on continuous cardiac and pulse oximetry monitoring. NIBP monitoring applied. 12:01 No provider procedures requiring assistance completed. mb9 12:05 Patient did not have IV access during this emergency room visit. mb9 Administered Medications: 11:50 Drug: Diazepam PO 5 mg PO once Route: PO; mb9 12:01 Follow up: Response: No adverse reaction mb9 12:01 Not Given (Patient Refused): ns 0.9% 1000 ml IV at 1000 ml once mb9 Medication: 11:43 VIS not applicable for this client. mb9 Outcome: 12:40 Discharge ordered by . rn 12:40 Discharged to home ambulatory, with family, mb9 12:40 Condition: stable 12:40 Discharge instructions given to patient, Instructed on discharge instructions, follow up and referral plans. Demonstrated understanding of instructions, follow-up care, 12:41 Patient left the ED. mb9 Signatures: Kelby Braden MD MD rn Breneman, Mary Beth, RN RN mb9
--- NOTE | 2024-02-21 12:41 | EDPHYS ---
Physician Documentation [facility] Name: Evita Tomlin Age: 38 yrs Sex: Female : 1985 Arrival Date: 02/21/2024 Time: 11:37 Bed 7 Private MD: ED Physician Kelby Braden HPI: 02/20 11:47 This 38 yrs old Black Female presents to ER via EMS with complaints of Headache, rn Anxiety. 11:47 The patient complains of pain to the top of head and forehead. The patient describes rn the headache as aching. Onset: The symptoms/episode began/occurred this morning. Associated signs and symptoms: Pertinent positives: Anxiety, Pertinent negatives: altered mental status, fever, neck stiffness, rash, vision changes, vision loss, vomiting, vertigo. Severity of symptoms: At its worst the pain was moderate, in the emergency department the pain is unchanged. Headache History: The patient has had previous headaches and this one is similar to previous episodes. The symptoms are alleviated by nothing. the symptoms are aggravated by nothing. The patient has experienced similar episodes in the past. Patient reports headache that began this morning. Has history of headaches, gets them frequently, similar to previous headaches. No fever or trauma. No focal neurological deficit. Since EMS picked her up has been very anxious and uncooperative with EMS, unbuckling herself and the EMS ambulance. Currently refuses all care here.. 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 - Infectious Disease History:: Denies. - Social history:: Smoking status: Patient denies any tobacco usage or history of. - Family history:: not pertinent. - Hospitalizations: : No recent hospitalization is reported. ROS: 11:47 Constitutional: Negative for fever, chills, and weight loss, Neck: Negative for injury, rn pain, and swelling, Cardiovascular: Negative for chest pain, and edema, Respiratory: Negative for cough, wheezing, and pleuritic chest pain, Abdomen/GI: Negative for abdominal pain, nausea, vomiting, diarrhea, and constipation, Back: Negative for injury and pain, MS/Extremity: Negative for injury and deformity, Neuro: Positive for headache Exam: 11:47 Constitutional: This is a well developed, well nourished patient who is awake, alert, rn tearful and seems very anxious, slightly agitated Head/Face: Normocephalic, atraumatic. ENT: Moist mucous membranes, no stridor Neck: No meningismus Cardiovascular: Regular rate and rhythm. No pulse deficits. Respiratory: No increased work of breathing, no retractions or nasal flaring. Abdomen/GI: Soft, non-tender MS/ Extremity: Pulses equal, no cyanosis. Neurovascular intact. Full, normal range of motion. Equal circumference. Neuro: Awake and alert, GCS 15, oriented to person, place, time, and situation. Cranial nerves II-XII grossly intact. Motor strength 5/5 in all extremities. Sensory grossly intact. Cerebellar exam normal. Vital Signs: 11:39 BP 158 / 108; Pulse 90; Resp 18; Temp 98; Pulse Ox 100% ; Weight 65.77 kg; Height 4 ft. mb9 11 in. ; 11:39 Body Mass Index 29.29 (65.77 kg, 149.86 cm) mb9 [place] Coma Score: 12:38 Eye Response: spontaneous(4). Motor Response: obeys commands(6). Verbal Response: rn oriented(5). Total: 15. MDM: 11:39 Patient medically screened. rn 12:38 Differential diagnosis: hypertensive headache, intracerebral hemorrhage, migraine, rn neoplasm, tension headache, vasomotor headache. Data reviewed: vital signs, nurses notes, and as a result, I will discharge patient. Counseling: I had a detailed discussion with the patient and/or guardian regarding the historical points, exam findings, and any diagnostic results supporting the discharge/admit diagnosis. Response to treatment: the patient's symptoms have markedly improved after treatment. Refusal of service: The patient/guardian displays adequate decision making capability and despite a detailed discussion of alternatives, benefits, risks, and consequences refuses: CT Scan, all lab tests, Medications. 02/20 11:43 Order name: Cardiac monitoring; Complete Time: 11:44 rn 02/20 11:43 Order name: O2 Per Protocol; Complete Time: 44 rn 02/20 11:43 Order name: O2 Sat Monitoring; Complete Time: 11:44 rn Administered Medications: 11:50 Drug: Diazepam PO 5 mg PO once Route: PO; 9 12:01 Follow up: Response: No adverse reaction 9 12:01 Not Given (Patient Refused): ns 0.9% 1000 ml IV at 1000 ml once mb9 Disposition Summary: 02/21/24 12:40 Discharge Ordered Notes: Location: Home rn Problem: chronic rn Symptoms: have improved rn Condition: Stable rn Diagnosis - Headache rn - Anxiety disorder, unspecified rn Followup: rn - With: Private Physician - When: As needed - Reason: Recheck today's complaints, Re-evaluation by your physician Discharge Instructions: - Discharge Summary Sheet rn - General Headache Without Cause rn - Generalized Anxiety Disorder, Adult rn - Managing Anxiety, Adult rn Forms: - Medication Reconciliation Form rn - 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 EDMS EDMS
[2024-02-21 12:59] VITALS: BP 158/108; TEMP 98; O2SAT 100
== END 2024-02-21 12:41 | disposition home or self-care (01) ==
LOC: ER 11:37
DX: R51.9 Headache, unspecified (principal); F41.9 Anxiety disorder, unspecified
CPT/HCPCS: 99284; J7030

== ENCOUNTER 2024-06-20 11:11 | Emergency (ER) | payer OTHER, SELFPAY ==
--- OUTSIDE RECORDS SUMMARY | 2024-06-20 11:14 | XMS REPORT | Continuity of Care Document ---
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
[2024-06-20 11:57] LABS: SARS-CoV-2 Antigen CONTROL BLUE LINE VIS/BG OK; SARS-CoV-2 Antigen Rapid Res Negative (Negative)
--- NOTE | 2024-06-20 13:30 | EDPHYS ---
Physician Documentation [facility] Name: Evita Tomlin Age: 39 yrs Sex: Female : 1985 Arrival Date: 06/20/2024 Time: 11:11 Bed DX3 Private MD: ED Physician Stu Finn HPI: 06/20 15:36 This 39 yrs old Black Female presents to ER via Ambulatory with complaints of covid rt exposure. 15:34 Patient presents to the ED with reported COVID exposure. She reports and bodyaches. rt Patient is requesting antihelminthic medicines as soon when she was living with had worms. Is requesting blood pressure medication refill. Denies other acute complaints at this time, symptoms are mild in severity, no other aggravating or alleviating factors.. Historical: - Allergies: 11: No Known Allergies; tm6 - PMHx: 11: Anxiety; Hypertension; nerve pain; Herpes simplex; tm6 - PSHx: 11:26 ectopic ; tm6 - Immunization history:: Client reports receiving the 2nd dose of the Covid vaccine. - Infectious Disease History:: Denies. - Social history:: Smoking status: Patient denies any tobacco usage or history of. Patient/guardian denies using alcohol. - Family history:: not pertinent. ROS: 15:34 Cardiovascular: Negative for chest pain, palpitations, and edema, Respiratory: Negative rt for shortness of breath, cough, wheezing, and pleuritic chest pain, Abdomen/GI: Negative for abdominal pain, nausea, vomiting, diarrhea, and constipation, MS/Extremity: Negative for injury and deformity, Skin: Negative for injury, rash, and discoloration, Neuro: Negative for headache, weakness, numbness, tingling, and seizure, 15:34 Constitutional: Positive for body aches, Negative for fever, Exam: 15:34 Constitutional: This is a well developed, well nourished patient who is awake, alert, rt and in no acute distress. Head/Face: Normocephalic, atraumatic. Chest/axilla: Normal chest wall appearance and motion. Nontender with no deformity. No lesions are appreciated. Cardiovascular: Regular rate and rhythm with a normal S1 and S2. No gallops, murmurs, or rubs. Normal PMI, no JVD. No pulse deficits. Respiratory: Lungs have equal breath sounds bilaterally, clear to auscultation and percussion. No rales, rhonchi or wheezes noted. No increased work of breathing, no retractions or nasal flaring. Abdomen/GI: Soft, non-tender, with normal bowel sounds. No distension or tympany. No guarding or rebound. No evidence of tenderness throughout. Skin: Warm, dry with normal turgor. Normal color with no rashes, no lesions, and no evidence of cellulitis. MS/ Extremity: Pulses equal, no cyanosis. Neurovascular intact. Full, normal range of motion. Vital Signs: 11:24 Pulse 86; Resp 17; Pulse Ox 100% on R/A; Weight 64.86 kg; Height 4 ft. 11 in. ; Pain tm6 310; 11:25 BP 155 / 87; MAP 105 mmHg; tm6 11:34 Temp 98.1(O); tm6 11:24 Body Mass Index 28.88 (64.86 kg, 149.86 cm) tm6 11:24 Pain Scale: Adult tm6 MDM: 11:33 Patient medically screened. rt 15:34 Differential Diagnosis COVID, viral syndrome. Data reviewed: vital signs, nurses notes, rt lab test result(s). Counseling: I had a detailed discussion with the patient and/or guardian regarding the historical points, exam findings, and any diagnostic results supporting the discharge/admit diagnosis, lab results, the need for outpatient follow up. 06/20 11:33 Order name: FREDY GARCIA; Complete Time: 11:58 rt Administered Medications: No medications were administered Disposition Summary: 06/20/24 13:29 Discharge Ordered Notes: Location: Home rt Problem: new rt Symptoms: have improved rt Condition: Stable rt Diagnosis - Essential (primary) hypertension rt Followup: rt - With: Private Physician - When: 2 - 3 days - Reason: Discharge Instructions: - Hypertension, Adult rt - Discharge Summary Sheet tm6 Forms: - Medication Reconciliation Form rt - Antibiotic Education rt - Prescription Opioid Use rt - Patient Portal Instructions rt - Leadership Thank You Letter rt - Work release form tm6 Prescriptions: - Diovan 40 mg Oral tablet - take 1 tablet ORAL route daily; 30 tablet; Refills: 0, Product Selection rt Permitted - albendazole 200 mg Oral tablet - take 1 tablet ORAL route once; 1 tablet; Refills: 0, Product Selection Permittedrt Signatures: Dispatcher [employer] Stu Cruz MD MD rt Masterson, Tawney RN RN tm6
--- NOTE | 2024-06-20 13:30 | ER ---
Nurse's Notes [facility] Name: Evita Tomlin Age: 39 yrs Sex: Female : 1985 Arrival Date: 06/20/2024 Time: 11:11 Bed DX3 Private MD: Diagnosis: Essential (primary) hypertension Presentation: 06/20 11:25 Chief complaint: Patient states: body aches, headache starting two days ago. Low tm6 temperature. Was around someone with covid. Man I was living with was in the hospital for two weeks because he had worms. Coronavirus screen: Vaccine status: Patient reports receiving the 2nd dose of the covid vaccine. Client presents with at least one sign or symptom that may indicate coronavirus-19. Ebola Screen: Patient negative for fever greater than or equal to 101.5 degrees Fahrenheit, and additional compatible Ebola Virus Disease symptoms Patient denies exposure to infectious person. Patient denies travel to an Ebola-affected area in the 21 days before illness onset. No symptoms or risks identified at this time. Initial Sepsis Screen: Does the patient meet any 2 criteria? No. Patient's initial sepsis screen is negative. Does the patient have a suspected source of infection? No. Patient's initial sepsis screen is negative. Risk Assessment: Do you want to hurt yourself or someone else? Patient reports no desire to harm self or others. Onset of symptoms was June 18, 2024. 11:25 Method Of Arrival: Ambulatory tm6 11:25 Acuity: KVNG 4 tm6 Triage Assessment: 11:26 General: Appears uncomfortable, Behavior is calm, cooperative. Pain: Complains of pain tm6 in head, general body aches. EENT: No signs and/or symptoms were reported regarding the EENT system. Neuro: Level of Consciousness is awake, alert, obeys commands, Oriented to person, place, time, situation, Reports headache since two days ago. Cardiovascular: Patient's skin is warm and dry. Respiratory: Airway is patent Respiratory effort is even, unlabored, Respiratory pattern is regular, symmetrical. GI: No signs and/or symptoms were reported involving the gastrointestinal system. Abdomen is flat, non-distended. : No signs and/or symptoms were reported regarding the genitourinary system. Derm: No signs and/or symptoms reported regarding the dermatologic system. Musculoskeletal: Reports general body aches x2 days. Historical: - Allergies: 11:26 No Known Allergies; tm6 - PMHx: 11:26 Anxiety; Hypertension; nerve pain; Herpes simplex; tm6 - PSHx: 11:26 ectopic ; tm6 - Immunization history:: Client reports receiving the 2nd dose of the Covid vaccine. - Infectious Disease History:: Denies. - Social history:: Smoking status: Patient denies any tobacco usage or history of. Patient/guardian denies using alcohol. - Family history:: not pertinent. Screenin:36 [facility] ED Fall Risk Assessment (Adult) History of falling in the last 3 months, tm6 including since admission No falls in past 3 months (0 pts) Confusion or Disorientation No (0 pts) Intoxicated or Sedated No (0 pts) Impaired Gait No (0 pts) Mobility Assist Device Used No (0 pt) Altered Elimination No (0 pt) Score/Fall Risk Level 0 - 2 = Low Risk Oriented to surroundings, Maintained a safe environment, Educated pt \T\ family on fall prevention, incl call for assistance when getting out of bed. Abuse screen: Denies threats or abuse. Denies injuries from another. Nutritional screening: No deficits noted. Tuberculosis screening: No symptoms or risk factors identified. Assessment: 13:36 Reassessment: see triage assessment. tm6 Vital Signs: 11:24 Pulse 86; Resp 17; Pulse Ox 100% on R/A; Weight 64.86 kg; Height 4 ft. 11 in. ; Pain tm6 3/10; 11:25 BP 155 / 87; MAP 105 mmHg; tm6 11:34 Temp 98.1(O); tm6 11:24 Body Mass Index 28.88 (64.86 kg, 149.86 cm) tm6 11:24 Pain Scale: Adult tm6 ED Course: 11:14 Patient arrived in ED. ra3 11:16 Stu Finn MD is Attending Physician. rt 11:26 Triage completed. tm6 11:26 Arm band placed on right wrist. tm6 11:37 SARS RAPID Sent. tm6 13:36 Patient has correct armband on for positive identification. Provided Education on: use tm6 of prescription meds. 13:36 No provider procedures requiring assistance completed. Patient did not have IV access tm6 during this emergency room visit. Administered Medications: No medications were administered Medication: 13:36 VIS not applicable for this client. tm6 Outcome: 13:29 Discharge ordered by . rt 13:36 Discharged to home ambulatory, with family, tm6 13:36 Condition: stable 13:36 Discharge instructions given to patient, Instructed on discharge instructions, follow up and referral plans. medication usage, Demonstrated understanding of instructions, follow-up care, medications, Prescriptions given X 2, 13:37 Patient left the ED. tm6 Signatures: Stu Finn MD MD rt Hoa Farooq RN RN tm6 Kasandra Arora ra3
[2024-06-20 14:34] VITALS: O2SAT 100
[2024-06-20 14:35] VITALS: BP 155/87
[2024-06-20 14:37] VITALS: TEMP 98.1
== END 2024-06-20 13:37 | disposition home or self-care (01) ==
LOC: ER 11:11
DX: I10 Essential (primary) hypertension (principal); R52 Pain, unspecified; Z11.52 Encounter for screening for COVID-19
CPT/HCPCS: 36415; 87811; 99283

== ENCOUNTER 2024-07-04 15:14 | Emergency (ER) | payer SELFPAY ==
--- OUTSIDE RECORDS SUMMARY | 2024-07-04 15:16 | XMS REPORT | Continuity of Care Document ---
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
[2024-07-04] MEDS ORDERED: NA CHLORIDE 0.9% 1,000 ML ONE (15:58)
[2024-07-04 16:12] LABS: Absolute Eosinophils 0.1 K/uL (0-0.5); Absolute Lymphocytes (CBC) 1.1 K/uL (0.7-4.9); Absolute Monocytes 0.6 K/uL (0.1-1.3); Absolute Neutrophil 4.3 K/uL (1.8-8.0); Basophils % 0.5 % (0-1.3); Eosinophils % 2.1 % (0-4.4); Hematocrit 34.3 % (36.0-45.0); Hemoglobin 10.9 g/dL (12.0-15.0); Lymphocytes % 18.1 % (15.3-44.8); MCH 26.4 pg (27.0-35.0); MCHC 31.8 g/dL (32.0-36.0); MCV 82.9 fL (80-100); MPV 10.3 fL (7.6-11.3); Monocytes % 9.1 % (3.3-12.3); Neutrophils % 70.2 % (41.7-73.7); Platelets 199 thou/uL (152-406); RBC Red Blood Cell Count 4.13 M/uL (3.86-4.86); Red Cell Distribution Width 16.3 % (12.1-15.2)
[2024-07-04 16:16] LABS: PT Prothrombin Time 10.9 SECONDS (9.4-12.5); Protime INR 0.97
[2024-07-04 16:32] LABS: ALT/SGPT 20 U/L (13-56); AST/SGOT 11 U/L (15-37); Albumin 3.7 g/dL (3.4-5.0); Alkaline Phosphatase 59 U/L (45-117); Anion Gap 9.7 mEq/L (5.0-15.0); BUN Blood Urea Nitrogen 19 mg/dL (7-18); Bicarbonate 28 mEq/L (21-32); Bilirubin Total 0.4 mg/dL (0.2-1.0); Globulin 3.7 g/dL (2.3-3.5); Glomerular Filtration Rate 75 ml/min (=/>90); Glucose Level 85 mg/dL (74-106); Potassium 3.7 mEq/L (3.5-5.1); Protein, Total 7.4 g/dL (6.4-8.2); Sodium Level 140 mEq/L (136-145)
[2024-07-04 16:33] LABS: Bilirubin Direct < 0.2 mg/dL (0-0.2); Bilirubin Indirect, Calculated 0.2 mg/dL (0.2-0.8); Troponin High Sensitivity < 3.0 pg/mL (<58.9)
--- NOTE | 2024-07-04 16:35 | RAD REPORT ---
Procedure: Chest Single View HISTORY: Abdominal pain COMPARISON: 2022 FINDINGS: The lungs appear clear of acute infiltrate. No significant pleural effusion noted. The heart is normal size. IMPRESSION: No acute abnormality is displayed.
--- NOTE | 2024-07-04 17:57 | RAD REPORT ---
EXAM: CT brain without contrast HISTORY: Headache COMPARISON: 2020 TECHNIQUE: Multiple contiguous axial images were obtained and a CT of the brain without contrast.. Sagittal and coronal reconstruction performed. Automated exposure control, adjustment of the mA and/or kV according to patient size, and/or iterative reconstruction. Unless otherwise specified, incidental f indings do not require dedicated imaging follow-u FINDINGS: An intracranial bleed is not seen Ventricles are normal caliber No extra-axial fluid collection noted No significant hypodensity within the brain No fluid within the visualized sinuses or mastoids noted. IMPRESSION: No acute intracranial abnormality noted. If the patient's symptoms persist MRI of the brain would be recommended.
--- NOTE | 2024-07-04 18:01 | RAD REPORT ---
EXAMINATION: CT ABDOMEN AND PELVIS WITH CONTRAST CLINICAL INDICATION: Abdominal pain TECHNIQUE: CT abdomen and pelvis was performed, after the administration of 100 cc Isovue-300.. Sagit vick and coronal reconstructions were obtained. One or more of the following dose reduction techniques were used: Automated exposure control, adjustment of the mA and kV according to patient si ze, and iterative reconstruction. Unless otherwise specified, incidental findings do not require dedicated imaging follow-up. [id number]. Oral contrast was not given which limits evaluation of bowel and appendix. COMPARISON: 2014 FINDINGS: Liver, spleen, pancreas, adrenals and kidneys appear unremarkable No evidence of diverticulitis. Normal appendix. No adnexal mass Small umbilical hernia : IMPRESSION: No acute abnormality displayed
[2024-07-04] MEDS ORDERED: KETOROLAC 30 MG/ML INJ ONE (18:05)
[2024-07-04] MEDS ORDERED: VALSARTAN 80 MG TAB ONE (18:20)
--- NOTE | 2024-07-04 18:33 | EDPHYS ---
Physician Documentation [facility] Name: Evita Tomlin Age: 39 yrs Sex: Female : 1985 Arrival Date: 07/04/2024 Time: 15:14 Bed 19 Private MD: ED Physician Michelle Walters HPI: 07/04 15:30 This 39 yrs old Black Female presents to ER via EMS with complaints of MED F/U. cp 15:30 The patient complains of pain to the left side of head. The patient describes the cp headache as aching. Onset: The symptoms/episode began/occurred today. The patient presents with abdominal pain in the lower abdomen. Onset: The symptoms/episode began/occurred today. Associated signs and symptoms: Pertinent positives: vaginal bleeding, Pertinent negatives: altered mental status, fever, paresthesias, weakness. Severity of symptoms: in the emergency department the pain is unchanged, despite EMS interventions. Historical: - Allergies: 15:16 No Known Drug Allergies; bp - PMHx: 15:16 Anxiety; Herpes simplex; Hypertension; nerve pain; bp - PSHx: 15:16 ectopic ; bp - Immunization history:: Adult Immunizations up to date. - Infectious Disease History:: Denies. - Social history:: Smoking status: Patient denies any tobacco usage or history of. ROS: 15:35 Cardiovascular: Negative for chest pain, edema, cp 15:35 Eyes: Negative for injury, pain, redness, and discharge, cp 15:35 Constitutional: Negative for body aches, chills, fever, poor PO intake, 15:35 ENT: Negative for drainage from ear(s), ear pain, sore throat, difficulty swallowing, difficulty handling secretions, 15:35 Respiratory: Negative for cough, shortness of breath, wheezing, 15:35 Abdomen/GI: Positive for abdominal pain, Negative for vomiting, diarrhea, constipation, 15:35 Neuro: Positive for headache, Negative for altered mental status, weakness, 15:35 All other systems are negative, Exam: 15:45 Head/Face: Normocephalic, atraumatic. cp 15:45 Constitutional: The patient appears in no acute distress, alert, awake, non-toxic, well developed, well nourished, uncomfortable, 15:45 Eyes: Periorbital structures: appear normal, Pupils: equal, round, and reactive to light and accomodation, Conjunctiva: normal, no exudate, no injection, Sclera: no appreciated abnormality, Lids and lashes: appear normal, bilaterally, 15:45 ENT: External ear(s): are unremarkable, Nose: is normal, Mouth: Lips: moist, Oral mucosa: pink and intact, moist, Posterior pharynx: Airway: no evidence of obstruction, patent, 15:45 Chest/axilla: Inspection: normal, 15:45 Cardiovascular: Rate: normal, Rhythm: regular, Edema: ankle edema, that is mild, 15:45 Respiratory: the patient does not display signs of respiratory distress, Respirations: normal, no use of accessory muscles, no retractions, labored breathing, is not present, Breath sounds: are clear throughout, no decreased breath sounds, no stridor, no wheezing, 15:45 Abdomen/GI: Inspection: abdomen appears normal, Palpation: soft, in all quadrants, mild abdominal tenderness, in the right lower quadrant and left lower quadrant, rebound tenderness, is not appreciated, 15:45 Back: CVA tenderness, is absent, 15:45 Neuro: Orientation: to person, place \T\ time. Mentation: is normal, Motor: moves all cp fours, strength is normal, Sensation: is normal, Vital Signs: 15:15 BP 165 / 103; Pulse 71; Resp 16; Temp 98; Pulse Ox 99% ; bp 16:15 BP 143 / 91; Pulse 77; Resp 16; Pulse Ox 100% ; bp 18:25 BP 151 / 97; Pulse 75; Resp 16; Pulse Ox 100% ; bp MDM: 15:21 Medical Screening Exam initiated cp 18:31 Data reviewed: vital signs, nurses notes, lab test result(s), EKG, radiologic studies, cp CT scan, plain films, and as a result, I will discharge patient. 18:31 Differential diagnosis: intracerebral hemorrhage, migraine, appendicitis, non-specific cp abd pain, pancreatitis, Pyelonephritis, urinary tract infection. I considered the following discharge prescriptions or medication management in the emergency department Medications were administered in the Emergency Department. See MAR. Counseling: I had a detailed discussion with the patient and/or guardian regarding the historical points, exam findings, and any diagnostic results supporting the discharge/admit diagnosis, lab results, radiology results, the need for outpatient follow up, a family practitioner, to return to the emergency department if symptoms worsen or persist or if there are any questions or concerns that arise at home. Response to treatment: the patient's symptoms have markedly improved after treatment, and as a result, I will discharge patient. Special discussion: Based on the patient's Hx, exam, and Dx evaluation, there is no indication for emergent surgery or inpatient Tx. It is understood by the patient/guardian that if the Sx's persist or worsen they need to return immediately for re-evaluation. 07/04 15:21 Order name: Basic Metabolic Panel; Complete Time: 18:03 cp 07/04 18:03 Interpretation: Normal except: BUN 19; GFR 75. cp 07/04 15:21 Order name: CBC with Diff; Complete Time: 18:03 cp 07/04 18:03 Interpretation: Normal except: HGB 10.9; HCT 34.3; MCH 26.4; MCHC 31.8; RDW 16.3. cp 07/04 15:21 Order name: LFT's; Complete Time: 18:03 cp 07/04 18:04 Interpretation: AST 11; GLOB 3.7; A/G 1.0; Reviewed. cp 07/04 15:21 Order name: Magnesium; Complete Time: 18:03 cp 07/04 15:21 Order name: PT-INR; Complete Time: 18:03 cp 07/04 15:21 Order name: Troponin HS; Complete Time: 18:03 cp 07/04 15:21 Order name: CT Head Brain wo Cont; Complete Time: 18:03 cp 07/04 18:05 Interpretation: Report reviewed. cp 07/04 15:21 Order name: XRAY Chest (1 view); Complete Time: 18:03 cp 07/04 18:05 Interpretation: Report review. cp 07/04 15:21 Order name: CT Abd/Pelvis - IV Contrast Only; Complete Time: 18:03 cp 07/04 18:05 Interpretation: Report reviewed. cp 07/04 15:21 Order name: Cardiac monitoring; Complete Time: 16:06 cp 07/04 15:21 Order name: IV Saline Lock; Complete Time: 16:06 cp 07/04 15:21 Order name: Labs collected and sent; Complete Time: 16:06 cp 07/04 15:21 Order name: O2 Per Protocol; Complete Time: 16:06 cp 07/04 15:21 Order name: O2 Sat Monitoring; Complete Time: 16:06 cp Administered Medications: 16:06 Drug: NS 0.9% IV 1000 ml IV at 1000 ml once; to be given as a bolus over 60 minutes bp Route: IV; Rate: 1000 ml; Site: right antecubital; 19:00 Follow up: IV Status: Completed infusion bp 18:13 Drug: Ketorolac IVP 15 mg IVP once Route: IVP; Site: right antecubital; bp 18:25 Follow up: Response: No adverse reaction bp 18:15 Drug: Valsartan PO 40 mg PO once Route: PO; bp 18:25 Follow up: Response: No adverse reaction bp Disposition Summary: 07/04/24 18:32 Discharge Ordered Notes: Location: Home cp Problem: new cp Symptoms: have improved cp Condition: Stable cp Diagnosis - Headache cp - Hypertensive heart disease without heart failure cp - Lower abdominal pain, unspecified cp - Encounter for issue of repeat prescription cp Followup: cp - With: Private Physician - When: 1 week - Reason: Recheck today's complaints Discharge Instructions: - Discharge Summary Sheet cp - Abdominal Pain, Adult cp - General Headache Without Cause cp - Hypertension, Adult cp - Aspirin and Your Heart cp - Form - Blood Pressure Record Sheet cp - How to Take Your Blood Pressure cp Forms: - Medication Reconciliation Form cp - Antibiotic Education cp - Prescription Opioid Use cp - Patient Portal Instructions cp - Leadership Thank You Letter cp Prescriptions: - Diovan 40 mg Oral tablet - take 1 tablet ORAL route once; 30 tablet; Refills: 0, Product Selection cp Permitted Signatures: Dispatcher [employer] EDNE Fabián Cabral PA PA cp Pan Ag, RN RN bp Corrections: (The following items were deleted from the chart) 15:21 15:21 Urinalysis+U.LAB.BRZ ordered. EDMS EDMS 15:21 15:21 Test, Urine+UC.LAB.BRZ ordered. EDMS EDMS 15:21 15:21 BASIC METABOLIC PANEL+C.LAB.BRZ ordered. EDMS EDMS 15:21 15:21 CBC+H.LAB.BRZ ordered. EDMS EDMS 15:21 15:21 HEPATIC FUNCTION+C.LAB.BRZ ordered. EDMS EDMS 15:21 15:21 MAGNESIUM+C.LAB.BRZ ordered. EDMS EDMS 15: 15:21 PROTIME (+INR)+COAG.LAB.BRZ ordered. EDMS EDMS 15: 15:21 Troponin High Sensitivity+C.LAB.BRZ ordered. EDMS EDMS 15: 15:21 Chest Single View+RAD.RAD.BRZ ordered. EDMS EDMS 15: 15:21 Abdomen Pelvis W Con+CT.RAD.BRZ ordered. EDMS EDMS
--- NOTE | 2024-07-04 18:33 | ER ---
Nurse's Notes [facility] Name: Evita Tomlin Age: 39 yrs Sex: Female : 1985 Arrival Date: 07/04/2024 Time: 15:14 Bed 19 Private MD: Diagnosis: Headache;Hypertensive heart disease without heart failure;Lower abdominal pain, unspecified;Encounter for issue of repeat prescription Presentation: 07/04 15:15 Chief complaint: EMS states: NON-COMPLIANT WITH MEDS, HTN MED F/U. Coronavirus screen: bp At this time, the client does not indicate any symptoms associated with coronavirus-19. Ebola Screen: No symptoms or risks identified at this time. Initial Sepsis Screen: Does the patient meet any 2 criteria? No. Patient's initial sepsis screen is negative. Does the patient have a suspected source of infection? No. Patient's initial sepsis screen is negative. Risk Assessment: Do you want to hurt yourself or someone else? Patient reports no desire to harm self or others. Onset of symptoms is unknown. 15:15 Method Of Arrival: EMS: [facility] bp 15:15 Acuity: KVNG 5 bp Triage Assessment: 15:16 General: Appears in no apparent distress. Behavior is cooperative, appropriate for age, bp anxious. Pain: Complains of pain in head. EENT: No deficits noted. Neuro: Reports headache. Cardiovascular: No deficits noted. Respiratory: No deficits noted. GI: No signs and/or symptoms were reported involving the gastrointestinal system. : No signs and/or symptoms were reported regarding the genitourinary system. Derm: No deficits noted. Musculoskeletal: No deficits noted. Historical: - Allergies: 15:16 No Known Drug Allergies; bp - PMHx: 15:16 Anxiety; Herpes simplex; Hypertension; nerve pain; bp - PSHx: 15:16 ectopic ; bp - Immunization history:: Adult Immunizations up to date. - Infectious Disease History:: Denies. - Social history:: Smoking status: Patient denies any tobacco usage or history of. Screenin:26 [facility] ED Fall Risk Assessment (Adult) History of falling in the last 3 months, bp including since admission No falls in past 3 months (0 pts) Confusion or Disorientation No (0 pts) Intoxicated or Sedated No (0 pts) Impaired Gait No (0 pts) Mobility Assist Device Used No (0 pt) Altered Elimination No (0 pt) Score/Fall Risk Level 0 - 2 = Low Risk. Abuse screen: Denies threats or abuse. Denies injuries from another. Nutritional screening: No deficits noted. Tuberculosis screening: No symptoms or risk factors identified. Assessment: 15:30 General: Appears in no apparent distress. Behavior is appropriate for age. bp 18:00 Reassessment: Patient appears in no apparent distress at this time. Patient is alert, bp oriented x 3, equal unlabored respirations, skin warm/dry/pink. Vital Signs: 15:15 BP 165 / 103; Pulse 71; Resp 16; Temp 98; Pulse Ox 99% ; bp 16:15 BP 143 / 91; Pulse 77; Resp 16; Pulse Ox 100% ; bp 18:25 BP 151 / 97; Pulse 75; Resp 16; Pulse Ox 100% ; bp ED Course: 15:14 Patient arrived in ED. bp 15:15 Fabián Cabral PA is PHCP. cp 15:15 Michelle Walters MD is Attending Physician. cp 15:16 Triage completed. bp 15:16 Arm band placed on. bp 15:37 Radiology exam delayed due to lab results not completed at this time. (BUN/Creatinine) sj IV insertion attempt and/or patient not having appropriate IV at this time. 15:39 Pan gA, RN is Primary Nurse. bp 16:06 Initial lab(s) drawn, by oh, sent to lab. Inserted saline lock: 20 gauge in right bp antecubital area, using aseptic technique. Blood collected. 16:14 LFT's Sent. nh2 16:14 Basic Metabolic Panel Sent. nh2 16:14 Magnesium Sent. nh2 16:14 PT-INR Sent. nh2 16:14 Troponin HS Sent. nh2 16:19 XRAY Chest (1 view) In Process Unspecified. EDMS 17:49 CT Head Brain wo Cont In Process Unspecified. EDMS 17:49 CT Abd/Pelvis - IV Contrast Only In Process Unspecified. EDMS 18:26 Patient has correct armband on for positive identification. bp 18:26 No provider procedures requiring assistance completed. bp 18:59 IV discontinued, intact, bleeding controlled, No redness/swelling at site. Pressure bp dressing applied. Administered Medications: 16:06 Drug: NS 0.9% IV 1000 ml IV at 1000 ml once; to be given as a bolus over 60 minutes bp Route: IV; Rate: 1000 ml; Site: right antecubital; 19:00 Follow up: IV Status: Completed infusion bp 18:13 Drug: Ketorolac IVP 15 mg IVP once Route: IVP; Site: right antecubital; bp 18:25 Follow up: Response: No adverse reaction bp 18:15 Drug: Valsartan PO 40 mg PO once Route: PO; bp 18:25 Follow up: Response: No adverse reaction bp Medication: 19:00 VIS not applicable for this client. bp Outcome: 18:32 Discharge ordered by MD. cp 18:59 Discharged to home ambulatory, bp 18:59 Condition: stable 18:59 Discharge instructions given to patient, Instructed on discharge instructions, follow up and referral plans. medication usage, Demonstrated understanding of instructions, follow-up care, medications, Prescriptions given X 1, 19:00 Patient left the ED. bp Signatures: Dispatcher [employer] EDMS Kori Mancilla Corey, PA PA cp Peltier, Brian, RN RN bp Jimmie Sherman, Joel nh2
[2024-07-05 07:26] VITALS: TEMP 98
[2024-07-05 07:32] VITALS: O2SAT 100
[2024-07-05 07:33] VITALS: BP 151/97
== END 2024-07-04 19:00 | disposition home or self-care (01) ==
LOC: ER 15:14
DX: I11.9 Hypertensive heart disease without heart failure (principal); R10.30 Lower abdominal pain, unspecified; Z76.0 Encounter for issue of repeat prescription
CPT/HCPCS: 36415; 70450; 71045; 74177; 80048; 80076; 83735; 84484; 85025; 85610; 96361; 96374; 99284; J7030; Q9967